=== PATIENT | male | born 1970 | race American Indian/Alaskan Native ===

== ENCOUNTER 2017-03-21 11:25 | Emergency (ER) | payer MEDICAID ==
[2016-08-16 20:01] VITALS: BMI 30.2
[2017-03-21] MEDS ORDERED: Sodium Chloride 0.9% 1,000 ML IV ONE ×4 (12:06→15:12)
[2017-03-21] MEDS ORDERED: (Novolin R) Insulin Human Regular 100 units/ml vial IV ONE ×2 (12:07→14:20)
[2017-03-21 12:16] LABS: BASO % 0.8 % (0.0-2.0); EOS # 0.1 K/uL (0.0-0.7); EOS % 1.1 % (0.0-4.0); HEMATOCRIT 40.5 % (35.0-51.0); LYMPH # 2.1 K/uL (1.0-4.3); LYMPH % 37.6 % (20.0-40.0); MEAN CELL VOLUME 84.5 fL (80.0-94.0); MEAN CORPUSCULAR HEMOGLOBIN 28.7 pg (27.0-31.0); MEAN CORPUSCULAR HGB CONC 33.9 g/dL (33.0-37.0); MEAN PLATELET VOLUME 10.5 fL (7.2-11.7); MONO # 0.3 K/uL (0.0-0.8); NRBC % 0.1 % (0.0-2.0); RED CELL DISTRIBUTION WIDTH 14.2 % (11.5-14.5); WHITE BLOOD COUNT 5.7 K/uL (4.8-10.8)
[2017-03-21 12:23] LABS: CHLORIDE 95 mmol/L (98-107)
[2017-03-21 12:24] LABS: SODIUM 134 mmol/L (132-148)
[2017-03-21 12:27] LABS: ALB/GLOB RATIO 1.4 (1.0-2.1); ALKALINE PHOSPHATASE 98 U/L (38-126); ALT/SGPT 41 U/L (21-72); AST/SGOT 43 U/L (17-59); BILIRUBIN,TOTAL 0.5 mg/dL (0.2-1.3); BLOOD UREA NITROGEN 17 mg/dL (9-20); CALCIUM 9.1 mg/dl (8.6-10.4); CARBON DIOXIDE 24 mmol/L (22-30); GFR AFRICAN-AMERICAN > 60; TOTAL PROTEIN 7.4 g/dL (6.3-8.3)
[2017-03-21 12:37] LABS: GLUCOSE,RANDOM 438 mg/dL (75-110)
[2017-03-21] MEDS ORDERED: Sodium Chloride 0.9% 1,000 ML ONE ×3 (12:42→16:17)
[2017-03-21] MEDS ORDERED: (Novolin R) Insulin Human Regular 100 units/ml vial ONE ×4 (12:42→22:46)
[2017-03-21 12:59] LABS: ALCOHOL SERUM 44 mg/dl (0-10)
--- NOTE | 2017-03-21 13:03 | C.PDOC ---
History Of Present Illness <Kelli Miner - Last Filed: 03/21/17 18:46> <HemaMarck Garima - Last Filed: 03/21/17 20:02> 47 y/o male presents to the ED for psychiatric evaluation. Patient reports feeling depressed and admits to experiencing auditory hallucinations. Patient states he has been having suicidal thoughts but denies ideation at this time. He admits he has not been taking his blood pressure and diabetes medication. He denies homicidal ideation and has no physical complaints at this time. ( CinthiarichyKelli harris) History Per: Patient History/Exam Limitations: no limitations Current Symptoms Are (Timing): Still Present Suicide/Self Injury Attempted (Context): None Modifying Factor(s): None Associated Symptoms: Depression, Suicidal Thoughts. denies: Suicidal Plan Involuntary Hold By: None Recent travel outside of the [place]: No Additional History Per: Patient <Kelli Miner - Last Filed: 03/21/17 18:46> <HemaMarck L - Last Filed: 03/21/17 20:02> Time Seen by Provider: 03/21/17 11:45 Chief Complaint (Nursing): Psychiatric Evaluation Past Medical History Reviewed: Historical Data, Nursing Documentation, Vital Signs - Medical History PMH: Anxiety, COPD, HTN Denies: Chronic Kidney Disease Surgical History: No Surg Hx Family History: States: Unknown Family Hx - Social History Hx Alcohol Use: Yes (Drinks one pint of vodka) Hx Substance Use: Yes (Heroin) <Kelli Miner - Last Filed: 03/21/17 18:46> Review Of Systems Except As Marked, All Systems Reviewed And Found Negative. Psych: Positive for: Depression, Other (+auditory hallucinations ). Negative for: Suicidal ideation <Kelli Miner - Last Filed: 03/21/17 18:46> Physical Exam - Physical Exam Appears: Non-toxic, No Acute Distress, Other (pacing back and forth ) Skin: Normal Color, Warm, Dry Head: Atraumatic, Normacephalic Eye(s): bilateral: Normal Inspection, EOMI Nose: Normal Oral Mucosa: Moist Lips: Other (+dry ) Neck: Normal ROM, Supple Chest: Symmetrical, No Deformity, No Tenderness Cardiovascular: Rhythm Regular, No Murmur Respiratory: Normal Breath Sounds, No Rales, No Rhonchi, No Wheezing Gastrointestinal/Abdominal: Soft, No Tenderness Back: Normal Inspection, No Vertebral Tenderness, No Paraspinal Tenderness Extremity: Normal ROM, Capillary Refill (less than 2 seconds ) Neurological/Psych: Oriented x3, Normal Speech, Normal Cognition Gait: Steady <Kelli Miner - Last Filed: 03/21/17 18:46> ED Course And Treatment - Laboratory Results Result Diagrams: 03/21/17 12:08 03/21/17 12:08 O2 Sat by Pulse Oximetry: 95 (on RA) Pulse Ox Interpretation: Normal Progress Note: labs ordered and reviewed. Pt received Novolin IV and IV Fluids. Patient's vital signs remain stable. Case discussed with Dr. Cid, who agrees that patient does not meet the departmental criteria for code sepsis. Pt has no clinical signs of infection. No cough, congestion, chest pain, abd pain, n/v, or diarrhea. Pt has no complaints. Pt vitals stable. No tachycardia, no fever, WBC WNL. Lactate redrawn - 1.1. Pt clincally stable and medically cleared. Suggested medicine consult for chronic HTN and DM. Pt seen and evalauted by social media project manager. Case endorsed to Dr Garrido, pending disposition. <Kelli Miner - Last Filed: 03/21/17 18:46> - Laboratory Results Result Diagrams: 03/21/17 12:08 03/21/17 12:08 <Marck Garrido - Last Filed: 03/21/17 20:02> Disposition - Disposition Disposition Time: 19:00 <Kelli Miner - Last Filed: 03/21/17 18:46> <Marck Garrido - Last Filed: 03/21/17 20:02> - Disposition Condition: STABLE - Clinical Impression Clinical Impression: Schizophrenia, Depression, Hyperglycemia - PA / HOSE MENDER / Resident Statement MD/DO has reviewed & agrees with the documentation as recorded. - Scribe Statement The provider has reviewed the documentation as recorded by the Scribe (Shameka Subramanian) <Kelli Miner - Last Filed: 03/21/17 18:46> <Marck Garrido - Last Filed: 03/21/17 20:02> - Scribe Statement All medical record entries made by the Scribe were at my direction and personally dictated by me. I have reviewed the chart and agree that the record accurately reflects my personal performance of the history, physical exam, medical decision making, and the department course for this patient. I have also personally directed, reviewed, and agree with the discharge instructions and disposition. (Kelli Miner) Addendum <Kelli Miner - Last Filed: 03/21/17 18:46> <Marck Garrido - Last Filed: 03/21/17 20:02> Addendum: 03/21/17 19:55 Hx and Pe reviewed Pres[facility] awaiting a bed ([facility]) Pt has been and continues to be stable for admission to pes/detox Had one false positive lactate,(repeat normal) no indication of sepsis or DKA Hx of poorly controlled glucose and not taking meds At this time with no evidence of DKA tight control of glucose is NOT indicated. Pt will need a medical consult to restart antidiabetic meds when he is willing 03/21/17 20:01 (Marck Garrido)
[2017-03-21 13:27] LABS: VENOUS BLOOD GAS BASE EXCESS -1.8 mmol/L (0.0-2.0); VENOUS BLOOD GAS PCO2 48 mmHg (40-60); VENOUS BLOOD PH 7.32 (7.32-7.43)
[2017-03-21 14:26] LABS: RBC URINE 3 /hpf (0-3); URINE BACTERIA RARE (<OCC); URINE BILIRUBIN NEGATIVE (NEGATIVE); URINE BLOOD NEGATIVE (NEGATIVE); URINE COLOR Yellow (YELLOW); URINE GLUCOSE (UA) 3+ mg/dL (Normal); URINE KETONE NEGATIVE (NEGATIVE); URINE LEUKOCYTE ESTERASE 1+ Leu/uL (Negative); URINE PROTEIN NEGATIVE (NEGATIVE); URINE UROBILINOGEN NORMAL mg/dL (0.2-1.0); WBC URINE 14 /hpf (0-5)
--- NOTE | 2017-03-21 14:32 | RAD ---
PROCEDURE: CHEST RADIOGRAPH, 1 VIEW HISTORY: screening COMPARISON: None available. FINDINGS: LUNGS: Mild venous congestion. PLEURA: No pneumothorax or pleural fluid seen. CARDIOVASCULAR: Normal. OSSEOUS STRUCTURES: No significant abnormalities. VISUALIZED UPPER ABDOMEN: Normal. OTHER FINDINGS: None. IMPRESSION: Mild venous congestion.
[2017-03-21 15:01] LABS: VENOUS BLOOD GAS BASE EXCESS -1.1 mmol/L (0.0-2.0); VENOUS BLOOD GAS PCO2 48 mmHg (40-60); VENOUS BLOOD PH 7.33 (7.32-7.43)
[2017-03-21] MEDS ORDERED: (Novolin 70/30) NPH/Regular 70/30 Units/ml 10 ml vial SC STA (19:52)
[2017-03-21] MEDS ORDERED: (Novolin 70/30) NPH/Regular 70/30 Units/ml 10 ml vial SC ONE (19:59)
[2017-03-21] MEDS ORDERED: (Novolin R) Insulin Human Regular 100 units/ml vial SC ONE ×2 (21:02→22:46)
[2017-03-22 00:21] VITALS: BP 139/82; PULSE 80; RESP 14; TEMP 97.8; O2SAT 95
== END 2017-03-22 00:28 ==
LOC: C.ER 11:25
DX: F20.9 Schizophrenia, unspecified (principal); E11.65 Type 2 diabetes mellitus with hyperglycemia; F32.9 Major depressive disorder, single episode, unspecified; F41.9 Anxiety disorder, unspecified; I10 Essential (primary) hypertension; Z91.19 Patient's noncompliance with other medical treatment and regimen; F17.210 Nicotine dependence, cigarettes, uncomplicated
CPT/HCPCS: 71010; 80053; 80320; 80324; 80345; 80346; 80349; 80353; 80358; 80361; 81001; 82009; 82803; 82948; 83605; 83992; 85025; 87040; 87086; 96360; 96372; 99285; J7040

== ENCOUNTER 2017-04-11 10:12 | Inpatient (IN) | payer MEDICAID, OTHER ==
[2017-04-11 10:13] VITALS: BMI 30.2
[2017-04-11 10:16] VITALS: O2SAT 98
--- NOTE | 2017-04-11 10:38 | C.PDOC ---
History Of Present Illness Patient is a 47 year old male who presents to the ER agitated, anxious, and with suicidal ideation. Patient had methadone in his possession; has not verbalized any physical complaints at this time. Time Seen by Provider: 04/11/17 10:17 Chief Complaint (Nursing): Psychiatric Evaluation History Per: Patient History/Exam Limitations: no limitations Onset/Duration Of Symptoms: Hrs Current Symptoms Are (Timing): Still Present Suicide/Self Injury Attempted (Context): None Modifying Factor(s): None Associated Symptoms: Anxiety, Agitation, Suicidal Thoughts Involuntary Hold By: None Recent travel outside of the [place]: No Past Medical History Reviewed: Historical Data, Nursing Documentation, Vital Signs Vital Signs: Last Vital Signs Temp 98 F 04/20/17 09:42 Pulse 98 H 04/20/17 09:42 Resp 18 04/20/17 09:42 BP 134/87 04/20/17 09:42 Pulse Ox 98 04/11/17 11:23 - Medical History PMH: Anxiety, Arthritis, Asthma, COPD, Depression, HTN, Schizophrenia Surgical History: No Surg Hx - [facility] Procedures GROUP PSYCHOTHERAPY (04/11/17) INDIV PSYCHOTHERAPY FOR SUBSTANCE ABUSE TREATMENT, SUPPORT (04/11/17) INDIVIDUAL PSYCHOTHERAPY, SUPPORTIVE (04/11/17) MEDICATION MANAGEMENT (04/11/17) MEDS MGMT FOR SUBSTANCE ABUSE TREATMENT, METHADONE MAINT (04/11/17) Family History: States: Unknown Family Hx - Social History Hx Alcohol Use: Yes Hx Substance Use: Yes (last used heroin 2yrs ago) Review Of Systems Constitutional: Negative for: Fever, Chills Psych: Positive for: Anxiety, Suicidal ideation Physical Exam - Physical Exam Appears: Non-toxic, No Acute Distress Skin: Normal Color, Warm, Dry Head: Atraumatic, Normacephalic Oral Mucosa: Moist Chest: Symmetrical, No Tenderness Cardiovascular: Rhythm Regular, No Murmur Respiratory: Normal Breath Sounds, No Rales, No Rhonchi, No Wheezing Gastrointestinal/Abdominal: Soft, No Tenderness Neurological/Psych: Oriented x3, Normal Speech, Normal Cognition ED Course And Treatment - Laboratory Results Result Diagrams: 04/11/17 10:41 04/11/17 10:41 Lab Interpretation: No Acute Changes O2 Sat by Pulse Oximetry: 98 (Room air) Pulse Ox Interpretation: Normal Progress Note: Blood work and urinalysis ordered. Patient will be placed on 1 to 1 observation. Patient agitated. Treated with ativan 2 mg PO Disposition - Disposition Disposition: HOSPITALIZED Disposition Time: 12:00 Condition: GOOD - Clinical Impression Clinical Impression: Moderate major depression, single episode - Scribe Statement The provider has reviewed the documentation as recorded by the Scribtoni Jones All medical record entries made by the Silvaibe were at my direction and personally dictated by me. I have reviewed the chart and agree that the record accurately reflects my personal performance of the history, physical exam, medical decision making, and the department course for this patient. I have also personally directed, reviewed, and agree with the discharge instructions and disposition.
[2017-04-11 10:44] LABS: BASO # 0.1 K/uL (0.0-0.2); BASO % 1.4 % (0.0-2.0); EOS % 0.3 % (0.0-4.0); LYMPH # 1.7 K/uL (1.0-4.3); LYMPH % 22.4 % (20.0-40.0); MEAN CELL VOLUME 84.2 fL (80.0-94.0); MEAN CORPUSCULAR HGB CONC 33.2 g/dL (33.0-37.0); MEAN PLATELET VOLUME 9.8 fL (7.2-11.7); MONO # 0.3 K/uL (0.0-0.8); MONO % 4.1 % (0.0-10.0); NEUT # 5.5 K/uL (1.8-7.0); NEUT % 71.8 % (50.0-75.0); NRBC % 0.1 % (0.0-2.0); RBC 4.99 Mil/uL (4.40-5.90); RED CELL DISTRIBUTION WIDTH 14.6 % (11.5-14.5); WHITE BLOOD COUNT 7.7 K/uL (4.8-10.8)
[2017-04-11 10:53] LABS: ALBUMIN 4.5 g/dL (3.5-5.0)
[2017-04-11 10:56] LABS: ALB/GLOB RATIO 1.2 (1.0-2.1); AST/SGOT 38 U/L (17-59); GFR AFRICAN-AMERICAN > 60; GFR NON-AFRICAN AMERICAN > 60
[2017-04-11 10:57] LABS: ALT/SGPT 46 U/L (21-72); BLOOD UREA NITROGEN 14 mg/dL (9-20); CALCIUM 9.7 mg/dl (8.6-10.4)
[2017-04-11 11:03] LABS: BARBITURATES, UR NEGATIVE (NEGATIVE)
[2017-04-11 11:06] LABS: SQUAMOUS EPITHIAL < 1 /hpf (0-5); URINE BACTERIA OCC (<OCC); URINE BILIRUBIN NEGATIVE (NEGATIVE); URINE BLOOD NEGATIVE (NEGATIVE); URINE CLARITY Clear (Clear); URINE COLOR Yellow (YELLOW); URINE GLUCOSE (UA) 3+ mg/dL (Normal); URINE LEUKOCYTE ESTERASE TRACE Leu/uL (Negative); URINE NITRATE NEGATIVE (NEGATIVE); URINE PROTEIN 1+ mg/dL (NEGATIVE); URINE UROBILINOGEN NORMAL mg/dL (0.2-1.0)
[2017-04-11 11:07] LABS: PHENCYCLIDINE, UR NEGATIVE (NEGATIVE)
[2017-04-11 11:23] LABS: BENZODIAZEPINES, UR POSITIVE (NEGATIVE)
[2017-04-11 11:30] LABS: OPIATES, UR NEGATIVE (NEGATIVE)
--- NOTE | 2017-04-12 10:24 | PCM.PSYCH ---
Initial Psychiatric Evaluation - Initial Psychiatric Evaluation Type of Admission: Voluntary Legal Status: Capacity Chief Complaint (in patient's own words): I was hearing voices History of Present Illness and Precipitating Events: Patient is a 47 years old AAM, who is currently homeless and has a history of schizoaffective disorder, dependence and opiate dependence came to the hospital with depressed mood, auditory hallucinations and suicidal ideation. Patient remained disorganized and internally preoccupied throughout the interview. He appeared delusional and paranoid. Patient reports that he was just discharged from [facility] 2 weeks ago. As per the patient, soon after discharge he stopped taking his medications and relapsed on drinking. Patient states that day before yesterday he consumed more than 2 pints of vodka , started hearing voices , got worried came to the hospital to get help. Patient reports depressed mood, feelings of hopelessness and helplessness poor sleep and poor appetite. He reports auditory hallucinations and persecutory delusions that someone is following him. He also reports visual hallucinations, shadows. He reports withdrawal symptoms from drinking including anxiety, headaches and sweating. He reports history of being on methadone for more than a year. Past psychiatric history HTN, DM Current Medications: Active Medications Generic Name Dose Route Start Last Admin Trade Name Freq PRN Reason Stop Dose Admin Quetiapine Fumarate 50 mg 04/11/17 22:00 04/11/17 21:43 Seroquel PO 50 mg HS MIREYA Administration Trazodone HCl 50 mg 04/11/17 21:19 04/11/17 21:43 Desyrel PO 50 mg HS PRN Administration Insomnia Past Psychiatric History - Past Psychiatric History Previous Treatment History: Inpatient Pertinent Medical Hx (Current Medical&Sleep Prob, Allergies): Allergies Allergy/AdvReac Type Severity Reaction Status Date / Time No Known Allergies Allergy Verified 04/11/17 10:16 Methadone 100 mg PO DAILY 08/14/16 Albuterol/Ipratropium [Duoneb 3 mg/0.5 mg (3 ml) UD] 3 ml IH QID 08/16/16 Atorvastatin [Lipitor] 10 mg PO HS #30 tab 03/30/17 Fluticasone/Salmeterol 250/50 [Advair Diskus 250/50] 1 puff IH Q12 30 Days 03/30 Metformin HCl [Glucophage] 1,000 mg PO BID #60 03/30/17 Nicotine 14 mg/24 hr [Nicoderm CQ] 1 patch TD DAILY #30 patch 03/30/17 Pantoprazole Sodium [Protonix] 40 mg PO DAILY #30 03/30/17 QUEtiapine [SEROquel] 150 mg PO HS #45 tab 03/30/17 QUEtiapine [Seroquel] 100 mg PO DAILY #15 tab 03/30/17 amLODIPine [Norvasc] 10 mg PO DAILY #30 03/30/17 cloNIDine [Catapres] 0.2 mg PO BID #60 03/30/17 Review of Systems - Review of Systems All systems: reviewed and no additional remarkable complaints except - Psychiatric Psychiatric: Anxiety, Irritability, Suicidal Ideation Mental Status Examination - Personal Presentation Personal Presentation: Looks stated age - Affect Affect: Constricted, Depressed - Motor Activity Motor Activity: Calm - Reliability in Providing Information Reliability in Providing Information: Good - Speech Speech: Organized - Mood Mood: Depressed, Anxious - Formal Thought Process Formal Thought Process: Hallucinations - Hallucinations/Delusions Hallucinations: Auditory - Obsessions/Compulsions Obsessions: No Compulsions: No - Cognitive Functions Orientation: Person, Place, Situation, Time Sensorium: Alert Attention/Concentration: Attentive Abstract Thinking: [place] Estimate of Intelligence: Below average Judgement: Imparied, as evidence by: Poor judgement, Imparied, as evidence by: Lack of insight into illness - Risk Risk: Suicidal, Withdrawal, Diminished functioning DSM 5 DX - DSM 5 DSM 5 Diagnosis: Schizoaffective disorder bipolar type Alcohol use disorder severe Alcohol withdrawal Opiate use disorder severe in remission on agonist therapy - Recommended/Plan of Treatment Treatment Recommendations and Plan of Treatment: Schizoaffective disorder bipolar type CBT Psychoeducation Supportive therapy, group therapy, individual therapy Seroquel 50 mg PO QHS Seroquel 100 mg PO Daily Neurontin 100 mg by mouth 3 times a day Trazodone 50 mg by mouth daily at bedtime Alcohol use disorder severe CBT Psychoeducation Supportive therapy, individual therapy Use [place] for abstinence Alcohol withdrawal uncomplicated CBT Psychoeducation Supportive therapy, individual therapy Ativanwhen necessary Folic acid/thiamine/multivitamin Opiate use disorder severe in remission on agonist therapy CBT Psychoeducation Supportive therapy, individual therapy methadone 100 mg by mouth daily Use [place] for abstinence DM Continue prescribed medications Monitor signs and symptoms HTN Continue prescribed medications Monitor signs and symptoms - Smoking Cessation Smoking Cessation Initiated: No
[2017-04-12] MEDS: Pantoprazole 40 mg EC Tab PO SCH (12:44)
[2017-04-12] MEDS: Methadone 40 mg Tab PO SCH (12:45)
[2017-04-12] MEDS: Fluticasone-Salmeterol 250-50mcg Diskus IH SCH ×2 (13:18→21:15)
[2017-04-12] MEDS: Albuterol-Ipratrop 3 mg / 0.5 (3 ml) UD IH SCH ×2 (17:28→21:15)
[2017-04-13] MEDS: Methadone 40 mg Tab PO SCH (10:06)
[2017-04-13] MEDS: Pantoprazole 40 mg EC Tab PO SCH (10:07)
[2017-04-13] MEDS: Fluticasone-Salmeterol 250-50mcg Diskus IH SCH ×2 (10:13→21:38)
[2017-04-13] MEDS: Albuterol-Ipratrop 3 mg / 0.5 (3 ml) UD IH SCH ×3 (13:42→20:35)
--- NOTE | 2017-04-13 14:04 | PCM.PYCHPN ---
Psychiatric Progress Note - Psychiatric Progress Note Patient seen today, length of contact: 16 min Patient Chief Complaint: I was hearing voices Problems Identified/Issues Discussed: Patient seen and evaluated, chart reviewed and discussed with the nurse. As per staff, yesterday patient became more disorganized and internally preoccupied. Patient remained isolated, confined and withdrawn. Today he still reports of hearing voices. Patient still appears paranoid and delusional. He reports depressed mood and feelings of hopelessness and helplessness. He reports withdrawal symptoms including headaches and anxiety. But remained isolated and withdrawn. He is taking medication and denies any side effects. Supportive therapy and psychoeducation were given. Medication Change: Yes (Increase Seroquel) Medical Record Reviewed: Yes Mental Status Examination - Cognitive Function Orientation: Person, Place, Situation, Time Memory: Intact Attention: Poor Concentration: Poor Association: Loose Fund of Knowledge: Poor - Mood Mood: Depressed, Anxious - Affect Affect: Constricted, Depressed - Speech Speech: Soft - Formal Thought Process Formal Thought Process: Hallucinations (auditory), Delusions, Paranoia - Suicidal Ideation Suicidal Ideation: No - Homicidal Ideation Homicidal Ideation: No Goal/Treatment Plan - Goal/Treatment Plan Need for Continued Stay: Remain at risks for inpatient hospitalization, Discharge may exacerbated symptoms Progress Toward Problem(s) and Goals/Treatment Plan: Schizoaffective disorder bipolar type CBT Psychoeducation Supportive therapy, group therapy, individual therapy Seroquel 50 mg PO QHS Seroquel 100 mg PO Daily Neurontin 100 mg by mouth 3 times a day Trazodone 50 mg by mouth daily at bedtime Alcohol use disorder severe CBT Psychoeducation Supportive therapy, individual therapy Use [place] for abstinence Alcohol withdrawal uncomplicated CBT Psychoeducation Supportive therapy, individual therapy Ativan when necessary Folic acid/thiamine/multivitamin Opiate use disorder severe in remission on agonist therapy CBT Psychoeducation Supportive therapy, individual therapy methadone 100 mg by mouth daily Use [place] for abstinence DM Continue prescribed medications Monitor signs and symptoms HTN Continue prescribed medications Monitor signs and symptoms
[2017-04-14] MEDS: Methadone 40 mg Tab PO SCH (09:45)
[2017-04-14] MEDS: Pantoprazole 40 mg EC Tab PO SCH (09:46)
[2017-04-14] MEDS: Albuterol-Ipratrop 3 mg / 0.5 (3 ml) UD IH SCH ×5 (10:06→22:43)
[2017-04-14] MEDS: Fluticasone-Salmeterol 250-50mcg Diskus IH SCH ×2 (10:06→22:18)
--- NOTE | 2017-04-14 12:43 | PCM.PYCHPN ---
Psychiatric Progress Note - Psychiatric Progress Note Patient seen today, length of contact: 16 min Patient Chief Complaint: I was hearing voices Problems Identified/Issues Discussed: Patient seen and evaluated, chart reviewed and discussed with the nurse. Today he still appears paranoid and delusional. He still reports of hearing voices. Patient still appears paranoid and delusional. He reports depressed mood and feelings of hopelessness and helplessness. He is taking medication and denies any side effects. Supportive therapy and psychoeducation were given. Medication Change: Yes (Increase Seroquel) Medical Record Reviewed: Yes Mental Status Examination - Cognitive Function Orientation: Person, Place, Situation, Time Memory: Intact Attention: Poor Concentration: Poor Association: Loose Fund of Knowledge: Poor - Mood Mood: Depressed, Anxious - Affect Affect: Constricted, Depressed - Speech Speech: Soft - Formal Thought Process Formal Thought Process: Hallucinations (auditory), Delusions, Paranoia - Suicidal Ideation Suicidal Ideation: No - Homicidal Ideation Homicidal Ideation: No Goal/Treatment Plan - Goal/Treatment Plan Need for Continued Stay: Remain at risks for inpatient hospitalization, Discharge may exacerbated symptoms Progress Toward Problem(s) and Goals/Treatment Plan: Schizoaffective disorder bipolar type CBT Psychoeducation Supportive therapy, group therapy, individual therapy Seroquel 100 mg PO QHS Seroquel 100 mg PO Daily Neurontin 100 mg by mouth 3 times a day Trazodone 50 mg by mouth daily at bedtime Alcohol use disorder severe CBT Psychoeducation Supportive therapy, individual therapy Use [place] for abstinence Alcohol withdrawal uncomplicated CBT Psychoeducation Supportive therapy, individual therapy Ativan when necessary Folic acid/thiamine/multivitamin Opiate use disorder severe in remission on agonist therapy CBT Psychoeducation Supportive therapy, individual therapy methadone 100 mg by mouth daily Use [place] for abstinence DM Continue prescribed medications Monitor signs and symptoms HTN Continue prescribed medications Monitor signs and symptoms - Smoking Cessation Smoking Cessation Initiated: No
[2017-04-14] MEDS: (Novolog) Insulin Aspart, Recombinant 100 u/ml 10 ml vial SC SCH (22:15)
[2017-04-15] MEDS: (Novolog) Insulin Aspart, Recombinant 100 u/ml 10 ml vial SC SCH ×4 (08:32→21:18)
[2017-04-15] MEDS: Pantoprazole 40 mg EC Tab PO SCH (09:38)
[2017-04-15] MEDS: Methadone 40 mg Tab PO SCH (09:38)
[2017-04-15] MEDS: Fluticasone-Salmeterol 250-50mcg Diskus IH SCH ×2 (13:19→21:25)
[2017-04-15] MEDS: Albuterol-Ipratrop 3 mg / 0.5 (3 ml) UD IH SCH ×3 (13:19→21:18)
--- NOTE | 2017-04-15 13:53 | PCM.PYCHPN ---
Psychiatric Progress Note - Psychiatric Progress Note Patient seen today, length of contact: 16 min Patient Chief Complaint: I am hearing voices and feeling depressed Problems Identified/Issues Discussed: Patient seen and evaluated, chart reviewed and discussed with the nurse. Patient remained isolated, confined and withdrawn. He still reports command type voices that are asking him to harm himself but there is no plan. Patient still appears paranoid and delusional. He reports depressed mood and feelings of hopelessness and helplessness. He reports improvement in the withdrawal symptoms He is taking medication and denies any side effects. Supportive therapy and psychoeducation were given. Medication Change: Yes (start Prolixin) Medical Record Reviewed: Yes Mental Status Examination - Cognitive Function Orientation: Person, Place, Situation, Time Memory: Intact Attention: Poor Concentration: Poor Association: Loose Fund of Knowledge: Poor - Mood Mood: Depressed, Anxious - Affect Affect: Constricted, Depressed - Speech Speech: Soft - Formal Thought Process Formal Thought Process: Hallucinations (auditory), Delusions, Paranoia, Loosening of associations - Suicidal Ideation Suicidal Ideation: No - Homicidal Ideation Homicidal Ideation: No Goal/Treatment Plan - Goal/Treatment Plan Need for Continued Stay: Remain at risks for inpatient hospitalization, Discharge may exacerbated symptoms Progress Toward Problem(s) and Goals/Treatment Plan: Schizoaffective disorder bipolar type CBT Psychoeducation Supportive therapy, group therapy, individual therapy Seroquel 100 mg PO QHS Seroquel 100 mg PO Daily Neurontin 100 mg by mouth 3 times a day Trazodone 50 mg by mouth daily at bedtime Prolixin 5 mg by mouth daily at bedtime Alcohol use disorder severe CBT Psychoeducation Supportive therapy, individual therapy Use [place] for abstinence Alcohol withdrawal uncomplicated CBT Psychoeducation Supportive therapy, individual therapy Ativan when necessary Folic acid/thiamine/multivitamin Opiate use disorder severe in remission on agonist therapy CBT Psychoeducation Supportive therapy, individual therapy methadone 100 mg by mouth daily Use [place] for abstinence DM Continue prescribed medications Monitor signs and symptoms HTN Continue prescribed medications Monitor signs and symptoms - Smoking Cessation Smoking Cessation Initiated: No
[2017-04-16] MEDS: Albuterol-Ipratrop 3 mg / 0.5 (3 ml) UD IH SCH ×2 (08:10→12:27)
[2017-04-16] MEDS: (Novolog) Insulin Aspart, Recombinant 100 u/ml 10 ml vial SC SCH ×5 (08:49→21:26)
[2017-04-16] MEDS: Pantoprazole 40 mg EC Tab PO SCH (10:05)
[2017-04-16] MEDS: Methadone 40 mg Tab PO SCH (10:05)
[2017-04-16] MEDS: Fluticasone-Salmeterol 250-50mcg Diskus IH SCH ×3 (10:11→21:38)
--- NOTE | 2017-04-16 11:47 | PCM.PYCHPN ---
Psychiatric Progress Note - Psychiatric Progress Note Patient seen today, length of contact: 16 min Patient Chief Complaint: I am still hearing voices Problems Identified/Issues Discussed: Patient seen and evaluated, chart reviewed and discussed with the nurse. today patient reports depressed mood and feelings of hopelessness and helplessness. He reports poor sleep and poor appetite. He is still reporting voices there are telling him to kill himself but less in intensity.Patient still appears paranoid and delusional. Pt still appears disheveled and disorganized. He is taking medication and denies any side effects. Supportive therapy and psychoeducation were given. Medication Change: Yes (Increase Prolixin) Medical Record Reviewed: Yes Mental Status Examination - Cognitive Function Orientation: Person, Place, Situation, Time Memory: Intact Attention: Poor Concentration: Poor Association: Loose Fund of Knowledge: Poor - Mood Mood: Depressed, Anxious - Affect Affect: Constricted, Blunted, Depressed - Speech Speech: Soft - Formal Thought Process Formal Thought Process: Hallucinations (auditory), Delusions, Paranoia, Loosening of associations - Suicidal Ideation Suicidal Ideation: No - Homicidal Ideation Homicidal Ideation: No Goal/Treatment Plan - Goal/Treatment Plan Need for Continued Stay: Remain at risks for inpatient hospitalization, Discharge may exacerbated symptoms Progress Toward Problem(s) and Goals/Treatment Plan: Schizoaffective disorder bipolar type CBT Psychoeducation Supportive therapy, group therapy, individual therapy Seroquel 100 mg PO QHS Discontinue Seroquel 100 mg PO Daily Discontinue Neurontin 100 mg by mouth 3 times a day Trazodone 50 mg by mouth daily at bedtime increase Prolixin to 10 mg by mouth daily at bedtime start Zoloft 50 mg by mouth daily Alcohol use disorder severe CBT Psychoeducation Supportive therapy, individual therapy Use [place] for abstinence Alcohol withdrawal uncomplicated CBT Psychoeducation Supportive therapy, individual therapy Ativan when necessary Folic acid/thiamine/multivitamin Opiate use disorder severe in remission on agonist therapy CBT Psychoeducation Supportive therapy, individual therapy methadone 100 mg by mouth daily Use [place] for abstinence DM Continue prescribed medications Monitor signs and symptoms HTN Continue prescribed medications Monitor signs and symptoms Estimated Date of D/C: 04/20/17 - Smoking Cessation Smoking Cessation Initiated: No
--- NOTE | 2017-04-16 13:39 | PCM.PYCHPN ---
Psychiatric Progress Note - Psychiatric Progress Note Patient seen today, length of contact: 16 min Patient Chief Complaint: I am still hearing voices Problems Identified/Issues Discussed: Patient seen and evaluated, chart reviewed and discussed with the nurse. As per staff, yesterday patient became more disorganized and internally preoccupied. Patient remained isolated, confined and withdrawn. Today he reports of voices having calmed down. He states that the voices are asking him to harm himself but there is no plan. Patient still appears paranoid and delusional. He reports depressed mood and feelings of hopelessness and helplessness. Pt appears disheveled, unkempt, and disorganized. He is taking medication and denies any side effects. Supportive therapy and psychoeducation were given. Medication Change: Yes (Increase Seroquel) Medical Record Reviewed: Yes Mental Status Examination - Cognitive Function Orientation: Person, Place, Situation, Time Memory: Intact Attention: Poor Concentration: Poor Association: Loose Fund of Knowledge: Poor - Mood Mood: Depressed, Anxious - Affect Affect: Constricted, Blunted, Depressed - Speech Speech: Soft - Formal Thought Process Formal Thought Process: Hallucinations (auditory), Delusions, Paranoia - Suicidal Ideation Suicidal Ideation: No - Homicidal Ideation Homicidal Ideation: No Goal/Treatment Plan - Goal/Treatment Plan Need for Continued Stay: Remain at risks for inpatient hospitalization, Discharge may exacerbated symptoms Progress Toward Problem(s) and Goals/Treatment Plan: Schizoaffective disorder bipolar type CBT Psychoeducation Supportive therapy, group therapy, individual therapy Seroquel 50 mg PO QHS Seroquel 100 mg PO Daily Neurontin 100 mg by mouth 3 times a day Trazodone 50 mg by mouth daily at bedtime Alcohol use disorder severe CBT Psychoeducation Supportive therapy, individual therapy Use [place] for abstinence Alcohol withdrawal uncomplicated CBT Psychoeducation Supportive therapy, individual therapy Ativan when necessary Folic acid/thiamine/multivitamin Opiate use disorder severe in remission on agonist therapy CBT Psychoeducation Supportive therapy, individual therapy methadone 100 mg by mouth daily Use [place] for abstinence DM Continue prescribed medications Monitor signs and symptoms HTN Continue prescribed medications Monitor signs and symptoms Estimated Date of D/C: 04/20/17
[2017-04-16] MEDS ORDERED: Albuterol-Ipratrop 3 mg / 0.5 (3 ml) UD IH PRN (18:13)
[2017-04-17] MEDS: (Novolog) Insulin Aspart, Recombinant 100 u/ml 10 ml vial SC SCH ×4 (08:33→22:07)
[2017-04-17] MEDS: Pantoprazole 40 mg EC Tab PO SCH (09:55)
[2017-04-17] MEDS: Fluticasone-Salmeterol 250-50mcg Diskus IH SCH ×2 (10:16→22:06)
--- NOTE | 2017-04-17 12:12 | PCM.PYCHPN ---
Psychiatric Progress Note - Psychiatric Progress Note Patient seen today, length of contact: 16 min Patient Chief Complaint: I am feeling little better' Problems Identified/Issues Discussed: Patient seen and evaluated, chart reviewed and discussed with the nurse. As per the staff, pt has started coming out of his room and appears less paranoid and delusional. He still reports of hearing voices. He appears more organize than before. He reports depressed mood and feelings of hopelessness and helplessness. He is taking medication and denies any side effects. Supportive therapy and psychoeducation were given. Medication Change: Yes (Increase Seroquel) Medical Record Reviewed: Yes Mental Status Examination - Cognitive Function Orientation: Person, Place, Situation, Time Memory: Intact Attention: WNL Concentration: Poor Association: Loose Fund of Knowledge: WNL - Mood Mood: Depressed, Anxious - Affect Affect: Constricted, Depressed - Speech Speech: Soft - Formal Thought Process Formal Thought Process: Hallucinations (auditory), Delusions, Paranoia - Suicidal Ideation Suicidal Ideation: No - Homicidal Ideation Homicidal Ideation: No Goal/Treatment Plan - Goal/Treatment Plan Need for Continued Stay: Remain at risks for inpatient hospitalization, Discharge may exacerbated symptoms Progress Toward Problem(s) and Goals/Treatment Plan: Schizoaffective disorder bipolar type CBT Psychoeducation Supportive therapy, group therapy, individual therapy Seroquel 100 mg PO QHS Prolixin 10 mg PO QHS Increase Zoloft to 100 mg po Daily Trazodone 50 mg by mouth daily at bedtime Alcohol use disorder severe CBT Psychoeducation Supportive therapy, individual therapy Use [place] for abstinence Alcohol withdrawal uncomplicated CBT Psychoeducation Supportive therapy, individual therapy Ativan when necessary Folic acid/thiamine/multivitamin Opiate use disorder severe in remission on agonist therapy CBT Psychoeducation Supportive therapy, individual therapy methadone 80 mg by mouth daily Use [place] for abstinence DM Continue prescribed medications Monitor signs and symptoms HTN Continue prescribed medications Monitor signs and symptoms Estimated Date of D/C: 04/20/17 - Smoking Cessation Smoking Cessation Initiated: No
[2017-04-17] MEDS: Methadone 40 mg Tab PO SCH (12:25)
[2017-04-18] MEDS: Fluticasone-Salmeterol 250-50mcg Diskus IH SCH ×2 (11:40→22:02)
[2017-04-18] MEDS: (Novolog) Insulin Aspart, Recombinant 100 u/ml 10 ml vial SC SCH ×4 (11:41→21:32)
[2017-04-18] MEDS: Methadone 40 mg Tab PO SCH (11:44)
[2017-04-18] MEDS: Pantoprazole 40 mg EC Tab PO SCH (11:45)
--- NOTE | 2017-04-18 17:28 | PCM.PYCHPN ---
Psychiatric Progress Note - Psychiatric Progress Note Patient seen today, length of contact: 16 min Patient Chief Complaint: "I feel dizzy" Problems Identified/Issues Discussed: The pt is seen, chart reviewed, case discussed with staff. The pt is compliant with medications and reports no side-effects. Symptoms are improving but needs more time to stabilize. After care discussed, support and psychoeducation given. Medication Change: No Medical Record Reviewed: Yes Mental Status Examination - Cognitive Function Orientation: Person, Place, Situation, Time Memory: Intact Attention: WNL Concentration: Poor Association: Loose Fund of Knowledge: WNL - Mood Mood: Depressed, Anxious - Affect Affect: Constricted, Depressed - Speech Speech: Soft - Formal Thought Process Formal Thought Process: Hallucinations (less) - Suicidal Ideation Suicidal Ideation: No - Homicidal Ideation Homicidal Ideation: No Goal/Treatment Plan - Goal/Treatment Plan Need for Continued Stay: Remain at risks for inpatient hospitalization, Discharge may exacerbated symptoms Progress Toward Problem(s) and Goals/Treatment Plan: Continue medications Support and psychoeducation daily Attend groups and activities daily After care planning by CINDI Estimated Date of D/C: 04/20/17
[2017-04-19 08:02] VITALS: RESP 18
[2017-04-19] MEDS: (Novolog) Insulin Aspart, Recombinant 100 u/ml 10 ml vial SC SCH ×4 (08:25→21:34)
[2017-04-19] MEDS: Methadone 40 mg Tab PO SCH (10:06)
[2017-04-19] MEDS: Pantoprazole 40 mg EC Tab PO SCH (10:08)
[2017-04-19] MEDS: Fluticasone-Salmeterol 250-50mcg Diskus IH SCH ×2 (10:13→21:31)
--- NOTE | 2017-04-19 17:44 | PCM.PYCHPN ---
Psychiatric Progress Note - Psychiatric Progress Note Patient seen today, length of contact: 15 minute Patient Chief Complaint: I'm feeling better. Can I get Ativan prescription at the time of my discharge from the hospital. Problems Identified/Issues Discussed: Patient seen. Chart reviewed. Case discussed with the staff. Issues related to illness and treatment were discussed with the patient. Patient reported compliant with treatment with no adverse affects. Tolerating treatment very well. Patient reported feeling much better. Asking for Ativan prescription at the time of discharge. Education provided about the medications. At the time of evaluation, patient was awake alert oriented 3, delusions, no auditory or visual hallucinations, no suicidal ideations or homicidal ideations. Medical Problems: Hypertension Diabetes mellitus Diagnostic Results: Reviewed DSM 5 Symptoms Update: Improving with treatment Medication Change: No Medical Record Reviewed: Yes Mental Status Examination - Cognitive Function Orientation: Person, Place, Situation, Time Memory: Intact Attention: WNL Concentration: WNL Association: WN Fund of Knowledge: [facility] Decription of patient's judgement and insights: Fair - Mood Mood: Anxious - Affect Affect: Other - Speech Speech: Appropriate - Formal Thought Process Formal Thought Process: No Impairment - Suicidal Ideation Suicidal Ideation: No - Homicidal Ideation Homicidal Ideation: No Goal/Treatment Plan - Goal/Treatment Plan Need for Continued Stay: Remain at risks for inpatient hospitalization, Discharge may exacerbated symptoms, Severe functional impairment Progress Toward Problem(s) and Goals/Treatment Plan: Patient education Supportive therapy Continue treatment as before Estimated Date of D/C: 04/20/17 - Smoking Cessation Smoking Cessation Initiated: Yes
[2017-04-20] MEDS: (Novolog) Insulin Aspart, Recombinant 100 u/ml 10 ml vial SC SCH (08:26)
[2017-04-20 09:43] VITALS: BP 134/87; PULSE 98; TEMP 98
[2017-04-20] MEDS: Pantoprazole 40 mg EC Tab PO SCH (10:02)
[2017-04-20] MEDS: Methadone 40 mg Tab PO SCH (10:04)
--- NOTE | 2017-04-20 16:10 | PCM.PYCHDC ---
Mental Status Examination - Mental Status Examination Orientation: Person, Place, Situation, Time Memory: Intact Mood: Neutral Affect: Constricted Speech: Soft Attention: WNL Concentration: WNL Association: WNL Fund of Knowledge: WNL Formal Thought Process: No Impairment Description of patient's judgement and insight: GOOD, FAIR Psychotic Thoughts and Behaviors: denies any AVH Suicidal Ideation: No Current Homicidal Ideation?: No Discharge Summary - Discharge Note Reason for Hospitalization: Patient is a 47 years old AAM, who is currently homeless and has a history of schizoaffective disorder, dependence and opiate dependence came to the hospital with depressed mood, auditory hallucinations and suicidal ideation. Patient remained disorganized and internally preoccupied throughout the interview. He appeared delusional and paranoid. Patient reports that he was just discharged from [facility] 2 weeks ago. As per the patient, soon after discharge he stopped taking his medications and relapsed on drinking. Patient states that day before yesterday he consumed more than 2 pints of vodka , started hearing voices , got worried came to the hospital to get help. Patient reports depressed mood, feelings of hopelessness and helplessness poor sleep and poor appetite. He reports auditory hallucinations and persecutory delusions that someone is following him. He also reports visual hallucinations, shadows. He reports withdrawal symptoms from drinking including anxiety, headaches and sweating. He reports history of being on methadone for more than a year. Laboratory Data: Abnormal Lab Results 04/19/17 04/20/17 20:08 07:41 POC Glucose (mg/dL) 170 H 240 H Consultations:: List each consultation separately and include: 1. Reason for request. 2. Findings. 3. Follow-up Summary of Hospital Course include:: 1. Description of specific treatment plan utilized for patients during their course of treatmen. 2. Summarize the time- course for resolution of acute symptoms and/or regressed behaviors. 3. Describe issues identified and worked on during hospitalization. 4. Describe medication utilized. 5. Describe medical problems identified and treated. 6. Reassessment of suicide risk Summary of Hospital Course: During the course of her stay, patient (pt) started progressively improving and she no longer remained irritable, anxious and paranoid. Her mood and paranoia were improved and she started attending groups and meetings and started socializing. Patient denied any feelings of hopelessness, helplessness, and worthlessness, denied any problem with the sleep or appetite, denied suicidal ideation or homicidal ideation. Pt denied any auditory or visual hallucinations. Some changes were made in her current medications and patient was discharged on following medications. She tolerated these medications very well and denied any side effects. - Final Diagnosis (DSM 5) Condition upon Discharge: GOOD DSM 5: Schizoaffective disorder bipolar type Alcohol use disorder severe Alcohol withdrawal uncomplicated Opiate use disorder severe in remission on agonist therapy Disposition: HOME/ ROUTINE Follow-up Treatment Plan: Education: Pt was educated and counseled about the risks and benefits of taking and not taking medications. Pt was educated and counseled about the risks of drinking and abusing drugs. Pt was educated and counseled to go to the ER or call 911 if pt develop suicidal ideation or homicidal ideation, worsening of symptoms or severe side effects of the meds. Prescriptions/Medication Reconciliation: Benztropine [Cogentin] 1 mg PO HS PRN #30 tab PRN Reason: Extra Pyramidal Symptoms fluPHENAZine [Prolixin] 10 mg PO HS #30 tab Sertraline [Zoloft] 100 mg PO DAILY #30 tab traZODone [Desyrel] 50 mg PO HS PRN #30 tab PRN Reason: Insomnia - Smoking Cessation Smoking Cessation Medication prescribed: No - Antipsychotic Medications Pt discharged on 2 or more routine antipsychotic medications: No
== END 2017-04-20 11:30 | disposition home or self-care (01) | DRG 430 ==
LOC: C.ER 10:12 → C.5E 13:20 → C.9E 13:20
PROVIDERS: ADMIT Psychiatry & Neurology Psychiatry; ATTEND Psychiatry & Neurology Psychiatry
PROC: GZ3ZZZZ Medication Management (ICD-10-PCS; principal; 2017-04-11)
PROC: GZHZZZZ Group Psychotherapy (ICD-10-PCS; 2017-04-11)
PROC: GZ56ZZZ Individual Psychotherapy, Supportive (ICD-10-PCS; 2017-04-11)
PROC: HZ59ZZZ Individual Psychotherapy for Substance Abuse Treatment, Supportive (ICD-10-PCS; 2017-04-11)
PROC: HZ81ZZZ Medication Management for Substance Abuse Treatment, Methadone Maintenance (ICD-10-PCS; 2017-04-11)
DX: F25.0 Schizoaffective disorder, bipolar type (principal); R45.851 Suicidal ideations; F10.230 Alcohol dependence with withdrawal, uncomplicated; F11.21 Opioid dependence, in remission; J44.9 Chronic obstructive pulmonary disease, unspecified; I10 Essential (primary) hypertension; E11.9 Type 2 diabetes mellitus without complications; F22 Delusional disorders; F41.9 Anxiety disorder, unspecified; Z59.0 Homelessness; Z79.899 Other long term (current) drug therapy

== ENCOUNTER 2017-05-29 16:32 | Inpatient (IN) | payer MEDICAID, OTHER ==
[2017-05-29 16:32] VITALS: BMI 30.2
[2017-05-29 18:18] LABS: BASO % 0.5 % (0.0-2.0); EOS % 0.3 % (0.0-4.0); LYMPH # 1.1 K/uL (1.0-4.3); LYMPH % 14.7 % (20.0-40.0); MEAN CELL VOLUME 83.6 fL (80.0-94.0); MEAN CORPUSCULAR HEMOGLOBIN 28.9 pg (27.0-31.0); MEAN CORPUSCULAR HGB CONC 34.6 g/dL (33.0-37.0); MEAN PLATELET VOLUME 9.3 fL (7.2-11.7); MONO # 0.4 K/uL (0.0-0.8); MONO % 5.8 % (0.0-10.0); RED CELL DISTRIBUTION WIDTH 14.4 % (11.5-14.5); WHITE BLOOD COUNT 7.6 K/uL (4.8-10.8)
[2017-05-29 18:28] LABS: CHLORIDE 93 mmol/L (98-107)
[2017-05-29 18:29] LABS: POTASSIUM 3.3 mmol/L (3.6-5.2); SODIUM 133 mmol/L (132-148)
[2017-05-29 18:31] LABS: ALB/GLOB RATIO 1.2 (1.0-2.1); ALKALINE PHOSPHATASE 126 U/L (38-126); AST/SGOT 26 U/L (17-59); BILIRUBIN,TOTAL 0.6 mg/dL (0.2-1.3); CARBON DIOXIDE 29 mmol/L (22-30); GFR AFRICAN-AMERICAN > 60; TOTAL PROTEIN 7.9 g/dL (6.3-8.3)
[2017-05-29 18:32] LABS: ALCOHOL SERUM < 10 mg/dl (0-10); ALT/SGPT 53 U/L (21-72); BLOOD UREA NITROGEN 14 mg/dL (9-20); CALCIUM 9.9 mg/dl (8.6-10.4); GLUCOSE,RANDOM 242 mg/dL (75-110)
[2017-05-29 19:03] LABS: RBC URINE 2 /hpf (0-3); URINE BACTERIA RARE (<OCC); URINE BILIRUBIN NEGATIVE (NEGATIVE); URINE BLOOD NEGATIVE (NEGATIVE); URINE COLOR Yellow (YELLOW); URINE GLUCOSE (UA) 3+ mg/dL (Normal); URINE KETONE TRACE mg/dL (NEGATIVE); URINE LEUKOCYTE ESTERASE 1+ Leu/uL (Negative); URINE PROTEIN 2+ mg/dL (NEGATIVE); URINE UROBILINOGEN NORMAL mg/dL (0.2-1.0); WBC URINE 6 /hpf (0-5)
--- NOTE | 2017-05-29 19:52 | C.PDOC ---
History Of Present Illness 47 male who presents to the ER with a complaint of hearing voices telling him to kill himself. Denies suicidal or homicidal ideation. Time Seen by Provider: 05/29/17 17:17 Chief Complaint (Nursing): Psychiatric Evaluation History Per: Patient History/Exam Limitations: no limitations Onset/Duration Of Symptoms: Days Current Symptoms Are (Timing): Still Present Suicide/Self Injury Attempted (Context): None Modifying Factor(s): None Associated Symptoms: Suicidal Thoughts. denies: Depression, Suicidal Plan Involuntary Hold By: None Recent travel outside of the [place]: No Past Medical History Reviewed: Historical Data, Nursing Documentation, Vital Signs Vital Signs: Last Vital Signs Temp 99.1 F 05/29/17 16:37 Pulse 98 H 05/29/17 18:06 Resp 20 05/29/17 16:37 BP 169/109 H 05/29/17 18:06 Pulse Ox 98 05/29/17 19:54 - Medical History PMH: Anxiety, Asthma, Cardia Arrhythmia (tachycardia), Depression, Hepatitis, HTN, Hyperlipidemia, Schizophrenia Surgical History: No Surg Hx - [facility] GROUP PSYCHOTHERAPY (04/11/17) INDIV PSYCHOTHERAPY FOR SUBSTANCE ABUSE TREATMENT, SUPPORT (04/11/17) INDIVIDUAL PSYCHOTHERAPY, SUPPORTIVE (04/11/17) MEDICATION MANAGEMENT (04/11/17) MEDS MGMT FOR SUBSTANCE ABUSE TREATMENT, METHADONE MAINT (04/11/17) Family History: States: Unknown Family Hx - Social History Hx Alcohol Use: No Hx Substance Use: No - Immunization History Hx Tetanus Toxoid Vaccination: No Hx Influenza Vaccination: No Hx Pneumococcal Vaccination: No Review Of Systems Constitutional: Negative for: Fever, Chills Gastrointestinal: Negative for: Nausea, Vomiting, Diarrhea Psych: Negative for: Suicidal ideation Physical Exam - Physical Exam Appears: Non-toxic, No Acute Distress Skin: Normal Color, Warm, Dry Head: Atraumatic, Normacephalic Oral Mucosa: Moist Chest: Symmetrical, No Tenderness Cardiovascular: Rhythm Regular, No Murmur Respiratory: Normal Breath Sounds, No Rales, No Rhonchi, No Wheezing Gastrointestinal/Abdominal: Soft, No Tenderness Neurological/Psych: Oriented x3, Normal Speech, Normal Cognition ED Course And Treatment - Laboratory Results Result Diagrams: 05/29/17 18:13 05/29/17 18:13 O2 Sat by Pulse Oximetry: 98 (Room air) Pulse Ox Interpretation: Normal Progress Note: Urine drug screen ordered. Disposition Discussed With Dr.: Marlon Guajardo Doctor Will See Patient In The: Hospital Counseled Patient/Family Regarding: Diagnosis - Disposition Disposition: HOSPITALIZED Disposition Time: 22:20 Condition: STABLE Forms: [facility] ([place]) - Clinical Impression Clinical Impression: Bipolar affective disorder - Scribe Statement The provider has reviewed the documentation as recorded by the Scribe Gilmer Jones All medical record entries made by the Silvaibtoni were at my direction and personally dictated by me. I have reviewed the chart and agree that the record accurately reflects my personal performance of the history, physical exam, medical decision making, and the department course for this patient. I have also personally directed, reviewed, and agree with the discharge instructions and disposition.
[2017-05-30] MEDS ORDERED: Potassium Chloride 20 mEq ER Tab PO STA (00:07)
--- NOTE | 2017-05-30 01:10 | PCM.BM ---
<Jone Luciano - Last Filed: 05/30/17 01:08> Treatment Plan Problems - Problems identified on initial assessmt Depression Date Initiated: 05/30/17 Time Initiated: 01:08 Assessment reference: NA Status: Active Suicidal Ideation Date Initiated: 05/30/17 Time Initiated: 01:09 Assessment reference: NA Status: Active Comment: Jumping infront of truck. Audio Hallucination Date Initiated: 05/30/17 Time Initiated: 01:10 Assessment reference: NA Status: Active Comment: Command hallucination to hurt himself Substance Abuse Date Initiated: 05/30/17 Time Initiated: 01:12 Assessment reference: NA Status: Active Treatment assets and liabiliti Patient Assests: ADL independent, negotiates basic needs Patient Liabilities: live alone, financial problems, poor support system, dietary restrictions, substance abuse, medical problems - Milieu Protocol Maintain good personal hygiene: daily Encourage regular showers, daily Remind patient to perform daily oral care, daily Assist patient to perform ADL's Maintain personal safety: every shift Educate patient to report safety concerns to staff, every shift Monitor environment for contraband/sharps Medication safety: Monitor for expected outcome, potential side effects: every shift, Assess barriers to learning: every shift, Assess readiness for medication education: every shift <Melissa Johansen - Last Filed: 06/03/17 10:58> Family Contact Family involvement: Famliy/SO not involved - Goals for Treatment Patient goals for treatment: "I want to go back to my outpatient program in [facility]." Discharge/Continuing Care - Education Needs Education Needs: Patient Medication, Patient Coping Skills, Patient Placement options, Patient Community resources - Discharge Discharge Criteria: Tolerates medication w/o severe side effects, Free of Suicidal thoughts, No longer exhibiting s/s of withdrawal, Reduction of target symptoms Discharge to:: Long Term - Treatment Team Participation Discussed with Family/SO: No Was Patient/Family/SO present at Treatment Team Meeting: Yes <Vinayak Judd - Last Filed: 06/03/17 11:01> - Diagnosis (1) Schizoaffective disorder Status: Acute Interventions: 06/03/17 10:59 * Assess/adjust medications daily and /or as needed * See patient on an individual basis 7x/week to assess status of hallucinations * Discuss risks, benefits, side effects and alternatives of medications (2) Opioid dependence Status: Acute Interventions: 06/03/17 11:01 * Assess 7x/week regarding severity of withdrawal * Educate regarding risks, benefits, side effects and alternatives of medications * Use Motivational Interviewing for abstinence * Use CBT for relapse prevention * Medication management for withdrawal symptoms * Encourage medication assisted treatment
[2017-05-30] MEDS: Methadone 40 mg Tab PO SCH (12:03)
--- NOTE | 2017-05-30 19:33 | PCM.PSYCH ---
Initial Psychiatric Evaluation - Initial Psychiatric Evaluation Type of Admission: Voluntary Legal Status: Capacity Chief Complaint (in patient's own words): I need help. I was depressed and was hearing voices. History of Present Illness and Precipitating Events: Patient is a 47 years old, single, unemployed, on SSDI, [place] male with history of schizoaffective disorder, alcohol use disorder and opiate use disorder was admitted due to worsening depression and auditory hallucinations secondary to noncompliance with treatment. Patient reported started feeling depressed with decreased sleep and appetite, hopelessness helplessness, with suicidal ideations any plan. Denied any homicidal ideations. Reported history of once previous suicidal attempts 20 years ago by overdose on medication and was admitted in the hospital. Also reported hearing voices, telling him to kill himself, last heard yesterday. Also reported feeling at times that people are after him. He has history of about 10 inpatient psychiatric admissions. Patient did not see any psychiatrist outside. Denied use of any drugs but according to previous record patient was drinking large amount of alcohol and was admitted in [facility] in April because of alcohol use and worsening of his psychiatric symptoms. Patient is also on methadone because of opiate use. Reported he smokes one pack of cigarettes daily requesting for nicotine patch. Patient was born in [place], has had good of education, not working, on SSDI. Lives alone. Never and has no children. His height is 5 feet 2 inches and weight is 160 pounds. Current Medications: Active Medications Generic Name Dose Route Start Last Admin Trade Name Freq PRN Reason Stop Dose Admin Clonidine HCl 0.1 mg 05/30/17 00:56 05/30/17 14:58 Catapres PO 0.1 mg Q6 PRN Administration HTN Fluphenazine HCl 10 mg 05/30/17 22:00 Prolixin PO HS MIREYA Hydroxyzine HCl 25 mg 05/30/17 00:56 05/30/17 13:52 Atarax PO 25 mg Q6 PRN Administration Anxiety Ibuprofen 600 mg 05/30/17 00:56 Motrin Tab PO Q6 PRN Pain, moderate (4-7) Lorazepam 1 mg 05/30/17 00:56 05/30/17 15:52 Ativan PO 1 mg Q6 PRN Administration Agitation Metformin HCl 500 mg 05/30/17 10:00 05/30/17 17:17 Glucophage PO 500 mg BID MIREYA Administration Methadone HCl 80 mg 05/30/17 11:45 05/30/17 12:03 Methadose PO 80 mg DAILY MIREYA Administration Methadone HCl 20 mg 05/30/17 11:45 05/30/17 12:02 Methadone PO 20 mg DAILY MIREYA Administration Nicotine 1 patch 05/31/17 10:00 Nicoderm Cq TD DAILY MIREYA Sertraline HCl 50 mg 05/31/17 10:00 Zoloft PO DAILY MIREYA Trazodone HCl 50 mg 05/30/17 00:56 05/30/17 02:19 Desyrel PO 50 mg HS PRN Administration Sleep Past Psychiatric History - Past Psychiatric History Previous Treatment History: Inpatient At [facility] hospital: [facility] (formerly [facility]) History of Abuse: None reported History of ETOH/Drug Use: See HPI History of Family Illness: None reported Pertinent Medical Hx (Current Medical&Sleep Prob, Allergies): Allergies Allergy/AdvReac Type Severity Reaction Status Date / Time No Known Allergies Allergy Verified 05/29/17 16:42 No Known Home Med 05/29/17 Diabetes mellitus Hypertension Review of Systems - Psychiatric Psychiatric: Depression Mental Status Examination - Personal Presentation Personal Presentation: Looks stated age - Affect Affect: Depressed - Motor Activity Motor Activity: Calm - Reliability in Providing Information Reliability in Providing Information: Fair - Speech Speech: Organized - Mood Mood: Depressed - Formal Thought Process Formal Thought Process: No Impairment - Hallucinations/Delusions Hallucinations: Other (None reported) Delusions: Other - Obsessions/Compulsions Obsessions: None Compulsions: None - Cognitive Functions Orientation: Person, Place, Situation, Time Sensorium: Alert Attention/Concentration: Attentive Abstract Thinking: [place] Estimate of Intelligence: Average Judgement: Intact, as evidence by: Insight regarding need for hospitalization Memory: Recent intact, as evidence by: 3/3 object recall, Remote intact, as evidenced by: Ability to recall historical events - Risk Risk: Diminished functioning - Strength & Assets Inventory Strength & Assets Inventory: Cooperative - Limitations Limitations: Living alone DSM 5 DX - DSM 5 DSM 5 Diagnosis: Schizoaffective disorder depressive type Alcohol use disorder severe Opiate use disorder on agonist therapy(methadone) - Recommended/Plan of Treatment Treatment Recommendations and Plan of Treatment: Patient education Supportive therapy Continue treatment with methadone. Called patient's program to confirm his dose of methadone. Even after calling multiple times no response was received. Patient got his methadone 100 mg according to previous record. Will call his program again on Thursday to confirm methadone dose. Will start Prolixin and Zoloft. Patient was discharged on these medications during his previous admission Other when necessary medications Projected ELOS: 8-10 days - Smoking Cessation Smoking Cessation Initiated: Yes
[2017-05-31] MEDS: Methadone 40 mg Tab PO SCH (09:30)
--- NOTE | 2017-05-31 16:24 | PCM.PYCHPN ---
Psychiatric Progress Note - Psychiatric Progress Note Patient seen today, length of contact: 15 minutes Patient Chief Complaint: I'm feeling better with my medications. Problems Identified/Issues Discussed: Patient seen. Chart reviewed. Case discussed with the staff. Issues related to illness and treatment were discussed with the patient. Reported compliant with treatment with no adverse affects. Tolerating treatment very well. Patient reported feeling much better with this medication. Denied any suicidal homicidal ideations or any auditory visual hallucinations. Patient's potassium was low. Patient is getting potassium chloride. Will repeat potassium. Medical Problems: Diabetes mellitus Hypertension Diagnostic Results: Reviewed DSM 5 Symptoms Update: Improving with treatment Medication Change: No Medical Record Reviewed: Yes Mental Status Examination - Cognitive Function Orientation: Person, Place, Situation, Time Memory: Intact Attention: WNL Concentration: WNL Association: WNL Fund of Knowledge: WN Decription of patient's judgement and insights: Fair - Mood Mood: Depressed (Less than before) - Affect Affect: Depressed - Speech Speech: Appropriate - Formal Thought Process Formal Thought Process: No Impairment - Suicidal Ideation Suicidal Ideation: No - Homicidal Ideation Homicidal Ideation: No Goal/Treatment Plan - Goal/Treatment Plan Need for Continued Stay: Remain at risks for inpatient hospitalization, Discharge may exacerbated symptoms, Severe functional impairment Progress Toward Problem(s) and Goals/Treatment Plan: Patient education Supportive therapy Continue treatment as before Estimated Date of D/C: 06/06/17 - Smoking Cessation Smoking Cessation Initiated: Yes
[2017-06-01] MEDS: Methadone 40 mg Tab PO SCH (09:01)
--- NOTE | 2017-06-01 11:01 | PCM.PYCHPN ---
Psychiatric Progress Note - Psychiatric Progress Note Patient seen today, length of contact: 15 minutes Patient Chief Complaint: "I'm feeling depressed." Problems Identified/Issues Discussed: The pt is seen, chart reviewed, case discussed with staff. The pt reports feeling depressed, anxious, and slightly suicidal. He is observed to be disoriented, and mildly lethargic. The pt reports a decrease in appetite and sleep; he states sleeping 3 hours last night. The pt reports racing thoughts He denies hearing voices or other hallucinations Support given, CBT and [place] used briefly. Pt is improving slowly and needs more time. No SEs from medications, risks discussed. After care discussed. Medication Change: No Medical Record Reviewed: Yes Mental Status Examination - Cognitive Function Orientation: Person, Place, Situation, Time Memory: Intact Attention: WNL Concentration: Poor Association: Loose Fund of Knowledge: WNL - Mood Mood: Depressed (Less than before), Anxious - Affect Affect: Constricted, Depressed - Speech Speech: Appropriate - Formal Thought Process Formal Thought Process: Hallucinations, Delusions, Paranoia, Loosening of associations - Suicidal Ideation Suicidal Ideation: No - Homicidal Ideation Homicidal Ideation: No Goal/Treatment Plan - Goal/Treatment Plan Need for Continued Stay: Remain at risks for inpatient hospitalization, Discharge may exacerbated symptoms, Severe functional impairment Progress Toward Problem(s) and Goals/Treatment Plan: Schizoaffective disorder depressive type CBT Psychoeducation Supportive therapy, group therapy, individual therapy Prolixin 10 by mouth daily at bedtime Neurontin 100 mg by mouth 3 times a day Trazodone 50 mg by mouth daily at bedtime Alcohol use disorder severe CBT Psychoeducation Supportive therapy, individual therapy Use [place] for abstinence Ativan when necessary Opiate use disorder on agonist therapy(methadone) CBT Psychoeducation Supportive therapy, individual therapy Use [place] for abstinence Methadone 100 mg daily Estimated Date of D/C: 06/09/17 - Smoking Cessation Smoking Cessation Initiated: No
[2017-06-02] MEDS: Methadone 40 mg Tab PO SCH (09:26)
--- NOTE | 2017-06-02 15:19 | PCM.PYCHPN ---
Psychiatric Progress Note - Psychiatric Progress Note Patient seen today, length of contact: 16 minutes Patient Chief Complaint: "I feel the same as yesterday." Problems Identified/Issues Discussed: The pt is seen, chart reviewed, case discussed with staff. The pt appears lethargic and slow to respond to questions. The pt reports feeling "calmer" today. The pt reports less auditory and visual hallucinations, but admits they are still present. He still pacing back and forth in the hallways and appeared disorganized. The pt admits to being depressed, and says it's about the same as yesterday. The pt reports some anxiety, and on and off sleep throughout the night. Support given, CBT and [place] used briefly. Pt is improving slowly and needs more time. No SEs from medications, risks discussed. After care discussed. Medication Change: No Medical Record Reviewed: Yes Mental Status Examination - Cognitive Function Orientation: Person, Place, Situation, Time Memory: Intact Attention: WNL Concentration: Poor Association: Loose Fund of Knowledge: WNL - Mood Mood: Depressed (Less than before), Anxious - Affect Affect: Constricted, Depressed - Speech Speech: Appropriate, Soft - Formal Thought Process Formal Thought Process: Hallucinations, Delusions, Paranoia, Loosening of associations - Suicidal Ideation Suicidal Ideation: No - Homicidal Ideation Homicidal Ideation: No Goal/Treatment Plan - Goal/Treatment Plan Need for Continued Stay: Remain at risks for inpatient hospitalization, Discharge may exacerbated symptoms, Severe functional impairment Progress Toward Problem(s) and Goals/Treatment Plan: Schizoaffective disorder depressive type CBT Psychoeducation Supportive therapy, group therapy, individual therapy Prolixin 10 by mouth daily at bedtime Neurontin 100 mg by mouth 3 times a day Trazodone 50 mg by mouth daily at bedtime Alcohol use disorder severe CBT Psychoeducation Supportive therapy, individual therapy Use [place] for abstinence Ativan when necessary Opiate use disorder on agonist therapy(methadone) CBT Psychoeducation Supportive therapy, individual therapy Use [place] for abstinence Methadone 100 mg daily Estimated Date of D/C: 06/06/17
--- NOTE | 2017-06-03 10:58 | PCM.PYCHPN ---
Psychiatric Progress Note - Psychiatric Progress Note Patient seen today, length of contact: 16 minutes Patient Chief Complaint: "I feel the same as yesterday." Problems Identified/Issues Discussed: The pt is seen, chart reviewed, case discussed with staff. The pt appears lethargic and slow to respond to questions. The pt reports feeling "calmer" today. The pt reports less auditory and visual hallucinations, but admits they are still present. The pt denies suicidal or homicidal ideation's. The pt admits to being depressed, and says it's about the same as yesterday. The pt reports some anxiety, and on and off sleep throughout the night. Support given, CBT and [place] used briefly. Pt is improving slowly and needs more time. No SEs from medications, risks discussed. After care discussed. Medication Change: No Medical Record Reviewed: Yes Mental Status Examination - Cognitive Function Orientation: Person, Place, Situation, Time Memory: Intact Attention: WNL Concentration: Poor Association: WNL Fund of Knowledge: Poor - Mood Mood: Depressed (Less than before), Anxious - Affect Affect: Constricted, Depressed - Speech Speech: Appropriate - Formal Thought Process Formal Thought Process: Delusions, Paranoia - Suicidal Ideation Suicidal Ideation: No - Homicidal Ideation Homicidal Ideation: No Goal/Treatment Plan - Goal/Treatment Plan Need for Continued Stay: Remain at risks for inpatient hospitalization, Discharge may exacerbated symptoms, Severe functional impairment Progress Toward Problem(s) and Goals/Treatment Plan: Schizoaffective disorder depressive type CBT Psychoeducation Supportive therapy, group therapy, individual therapy Prolixin 10 by mouth daily at bedtime Neurontin 100 mg by mouth 3 times a day Trazodone 50 mg by mouth daily at bedtime Alcohol use disorder severe CBT Psychoeducation Supportive therapy, individual therapy Use [place] for abstinence Ativan when necessary Opiate use disorder on agonist therapy(methadone) CBT Psychoeducation Supportive therapy, individual therapy Use [place] for abstinence Methadone 100 mg daily Estimated Date of D/C: 06/06/17 - Smoking Cessation Smoking Cessation Initiated: No
[2017-06-03] MEDS: Methadone 40 mg Tab PO SCH (11:14)
[2017-06-04] MEDS: Methadone 40 mg Tab PO SCH (10:00)
--- NOTE | 2017-06-04 12:07 | PCM.PYCHPN ---
Psychiatric Progress Note - Psychiatric Progress Note Patient seen today, length of contact: 15 minutes Patient Chief Complaint: "I feel so so." Problems Identified/Issues Discussed: The pt is seen, chart reviewed, case discussed with staff. The patient reports feeling more depressed today. He is anxious and observed pacing back and forth across the room. Upon questioning, he admits to feeling depression and anxiety over his pending blood work, and is concerned over his Hep C and HIV status. The pt reports less auditory and visual hallucinations. The pt denies suicidal or homicidal ideation's. Otherwise, the patient is sleeping and eating well. Support given, CBT and [place] used briefly. Pt is improving slowly and needs more time. No SEs from medications, risks discussed. After care discussed. Medication Change: No Medical Record Reviewed: Yes Mental Status Examination - Cognitive Function Orientation: Person, Place, Situation, Time Memory: Intact Attention: WNL Concentration: Poor Association: WNL Fund of Knowledge: Poor - Mood Mood: Depressed (Less than before), Anxious - Affect Affect: Constricted, Depressed - Speech Speech: Appropriate - Formal Thought Process Formal Thought Process: Delusions, Paranoia - Suicidal Ideation Suicidal Ideation: No - Homicidal Ideation Homicidal Ideation: No Goal/Treatment Plan - Goal/Treatment Plan Need for Continued Stay: Remain at risks for inpatient hospitalization, Discharge may exacerbated symptoms, Severe functional impairment Progress Toward Problem(s) and Goals/Treatment Plan: Schizoaffective disorder depressive type CBT Psychoeducation Supportive therapy, group therapy, individual therapy Prolixin 10 by mouth daily at bedtime Neurontin 100 mg by mouth 3 times a day Trazodone 50 mg by mouth daily at bedtime Alcohol use disorder severe CBT Psychoeducation Supportive therapy, individual therapy Use [place] for abstinence Ativan when necessary Opiate use disorder on agonist therapy(methadone) CBT Psychoeducation Supportive therapy, individual therapy Use [place] for abstinence Methadone 100 mg daily Estimated Date of D/C: 06/06/17 - Smoking Cessation Smoking Cessation Initiated: No
--- NOTE | 2017-06-05 10:00 | PCM.PYCHPN ---
Psychiatric Progress Note - Psychiatric Progress Note Patient seen today, length of contact: 15 minutes Patient Chief Complaint: "I feel anxious." Problems Identified/Issues Discussed: The pt is seen, chart reviewed, case discussed with staff. The patient remained anxious and irritable. He appeared somewhat internally preoccupied and still pacing back and forth across the room. He still reports depressed mood and at times feelings of hopelessness and helplessness. The pt reports less auditory and visual hallucinations. The pt denies suicidal or homicidal ideation's. Otherwise, the patient is sleeping and eating well. Support given, CBT and [place] used briefly. Pt is improving slowly and needs more time. No SEs from medications, risks discussed. After care discussed. Medication Change: No Medical Record Reviewed: Yes Mental Status Examination - Cognitive Function Orientation: Person, Place, Situation, Time Memory: Intact Attention: WNL Concentration: Poor Association: WNL Fund of Knowledge: Poor - Mood Mood: Depressed (Less than before), Anxious - Affect Affect: Constricted, Depressed - Speech Speech: Appropriate, Soft - Formal Thought Process Formal Thought Process: Hallucinations, Delusions, Paranoia - Suicidal Ideation Suicidal Ideation: No - Homicidal Ideation Homicidal Ideation: No Goal/Treatment Plan - Goal/Treatment Plan Need for Continued Stay: Remain at risks for inpatient hospitalization, Discharge may exacerbated symptoms, Severe functional impairment Progress Toward Problem(s) and Goals/Treatment Plan: Schizoaffective disorder depressive type CBT Psychoeducation Supportive therapy, group therapy, individual therapy Prolixin 10 by mouth daily at bedtime Neurontin 100 mg by mouth 3 times a day Trazodone 50 mg by mouth daily at bedtime Alcohol use disorder severe CBT Psychoeducation Supportive therapy, individual therapy Use [place] for abstinence Ativan when necessary Opiate use disorder on agonist therapy(methadone) CBT Psychoeducation Supportive therapy, individual therapy Use [place] for abstinence Methadone 100 mg daily Estimated Date of D/C: 06/06/17 - Smoking Cessation Smoking Cessation Initiated: No
[2017-06-05] MEDS: Methadone 40 mg Tab PO SCH (10:15)
[2017-06-06] MEDS: Methadone 40 mg Tab PO SCH (09:30)
--- NOTE | 2017-06-06 10:46 | PCM.PYCHPN ---
Psychiatric Progress Note - Psychiatric Progress Note Patient seen today, length of contact: 15 minutes Patient Chief Complaint: "I am feeling anxious." Problems Identified/Issues Discussed: The pt is seen, chart reviewed, case discussed with staff. Patient seen and evaluated, chart reviewed and discussed with the nurse. Pt appeared more organized and less internally preoccupied. But he still reports anxiety and was observed pacing back and forth across the room. He reports improvement in the racing of thoughts, but still reports anxiety and sleep disturbances. He reports some improvement in the voices. He is taking medication and denies any side effects. Support given, CBT and [place] used briefly. Pt is improving slowly and needs more time. No SEs from medications, risks discussed. After care discussed. Medication Change: No Medical Record Reviewed: Yes Mental Status Examination - Cognitive Function Orientation: Person, Place, Situation, Time Memory: Intact Attention: WNL Concentration: Poor Association: WNL Fund of Knowledge: Poor - Mood Mood: Depressed (Less than before) - Affect Affect: Depressed - Speech Speech: Appropriate - Formal Thought Process Formal Thought Process: Hallucinations, Delusions, Paranoia - Suicidal Ideation Suicidal Ideation: No - Homicidal Ideation Homicidal Ideation: No Goal/Treatment Plan - Goal/Treatment Plan Need for Continued Stay: Remain at risks for inpatient hospitalization, Discharge may exacerbated symptoms, Severe functional impairment Progress Toward Problem(s) and Goals/Treatment Plan: Schizoaffective disorder depressive type CBT Psychoeducation Supportive therapy, group therapy, individual therapy Prolixin 10 by mouth daily at bedtime Neurontin 100 mg by mouth 3 times a day Trazodone 50 mg by mouth daily at bedtime Alcohol use disorder severe CBT Psychoeducation Supportive therapy, individual therapy Use [place] for abstinence Ativan when necessary Opiate use disorder on agonist therapy(methadone) CBT Psychoeducation Supportive therapy, individual therapy Use [place] for abstinence Methadone 100 mg daily Estimated Date of D/C: 06/06/17 - Smoking Cessation Smoking Cessation Initiated: No
[2017-06-07] MEDS: Methadone 40 mg Tab PO SCH (10:29)
--- NOTE | 2017-06-07 11:47 | PCM.PYCHPN ---
Psychiatric Progress Note - Psychiatric Progress Note Patient seen today, length of contact: 15 minutes Patient Chief Complaint: "I am feeling very anxious and irritable Problems Identified/Issues Discussed: Patient seen and evaluated, chart reviewed and discussed with the nurse. Patient appeared more organized and less internally preoccupied. Patient reports irritability, anxiety and agitation. He reports racing of thoughts and flight of ideas. He still reports hearing voices. Patient still appears paranoid and delusional. He reports improvement in his depressed mood but remained isolated and withdrawn. He is taking medication and denies any side effects. He needs more time for stabilization Supportive therapy and psychoeducation were given. Medication Change: Yes (Increase Prolixin) Medical Record Reviewed: Yes Mental Status Examination - Cognitive Function Orientation: Person, Place, Situation, Time Memory: Intact Attention: WNL Concentration: Poor Association: Loose Fund of Knowledge: WNL - Mood Mood: Depressed (Less than before), Anxious - Affect Affect: Constricted, Depressed - Speech Speech: Appropriate - Formal Thought Process Formal Thought Process: Hallucinations, Delusions, Paranoia, Loosening of associations, Flight of ideas - Suicidal Ideation Suicidal Ideation: No - Homicidal Ideation Homicidal Ideation: No Goal/Treatment Plan - Goal/Treatment Plan Need for Continued Stay: Remain at risks for inpatient hospitalization, Discharge may exacerbated symptoms, Severe functional impairment Progress Toward Problem(s) and Goals/Treatment Plan: Schizoaffective disorder depressive type CBT Psychoeducation Supportive therapy, group therapy, individual therapy Prolixin 10 by mouth twice a day Trazodone 100 mg by mouth daily at bedtime Depakote 250 mg by mouth daily at bedtime Zoloft 100 mg daily Alcohol use disorder severe CBT Psychoeducation Supportive therapy, individual therapy Use [place] for abstinence [place] Ativan when necessary Opiate use disorder on agonist therapy(methadone) CBT Psychoeducation Supportive therapy, individual therapy Use [place] for abstinence Methadone 100 mg daily Estimated Date of D/C: 06/08/17 - Smoking Cessation Smoking Cessation Initiated: No
[2017-06-07 17:26] VITALS: O2SAT 69
[2017-06-07] MEDS: Divalproex 250 mg DR Tab PO SCH (17:43)
[2017-06-08] MEDS: Divalproex 250 mg DR Tab PO SCH ×2 (09:28→17:30)
[2017-06-08] MEDS: Methadone 40 mg Tab PO SCH (09:28)
--- NOTE | 2017-06-08 16:51 | PCM.PYCHPN ---
Psychiatric Progress Note - Psychiatric Progress Note Patient seen today, length of contact: 15 minutes Patient Chief Complaint: "I am feeling better but still anxious Problems Identified/Issues Discussed: Patient seen and evaluated, chart reviewed and discussed with the nurse. Pt appeared organized and was cooperaitve with interview but reports to feel anxious. He reports that he is feeling better overall and currently denies SI. However, he continues to report sleep disturbances, lack of appetite and racing thoughts. He also continues to hear voices. He has been scheduled for discharge tomorrow (Saturday 06/09) but reports apprehension regarding that. Pt was unwilling to elaborate further. He has been pacing around the hallways all morning. He is taking medication and denies any side effects. Supportive therapy and psychoeducation were given. Medication Change: Yes (Increase Prolixin) Medical Record Reviewed: Yes Mental Status Examination - Cognitive Function Orientation: Person, Place, Situation, Time Memory: Intact Attention: WNL Concentration: Poor Association: Loose Fund of Knowledge: WNL - Mood Mood: Depressed (Less than before), Anxious - Affect Affect: Constricted, Depressed - Speech Speech: Appropriate - Formal Thought Process Formal Thought Process: Hallucinations, Delusions, Flight of ideas - Suicidal Ideation Suicidal Ideation: No - Homicidal Ideation Homicidal Ideation: No Goal/Treatment Plan - Goal/Treatment Plan Need for Continued Stay: Remain at risks for inpatient hospitalization, Discharge may exacerbated symptoms, Severe functional impairment Progress Toward Problem(s) and Goals/Treatment Plan: Schizoaffective disorder depressive type CBT Psychoeducation Supportive therapy, group therapy, individual therapy Prolixin 10 by mouth twice a day Trazodone 100 mg by mouth daily at bedtime Depakote 250 mg by mouth daily at bedtime Zoloft 100 mg daily Alcohol use disorder severe CBT Psychoeducation Supportive therapy, individual therapy Use [place] for abstinence [place] Ativan when necessary Opiate use disorder on agonist therapy(methadone) CBT Psychoeducation Supportive therapy, individual therapy Use [place] for abstinence Methadone 100 mg daily Estimated Date of D/C: 06/08/17 - Smoking Cessation Smoking Cessation Initiated: No
[2017-06-09] MEDS: Methadone 40 mg Tab PO SCH (09:31)
[2017-06-09] MEDS: Divalproex 250 mg DR Tab PO SCH ×2 (09:31→17:21)
[2017-06-10] MEDS: Methadone 40 mg Tab PO SCH (09:30)
--- NOTE | 2017-06-10 09:30 | PCM.BM ---
<JaunJeniferMelissa - Last Filed: 06/10/17 09:30> Treatment Plan Problems - Problems identified on initial assessmt Depression Date Initiated: 05/30/17 Time Initiated: 01:08 Assessment reference: NA Status: Active Suicidal Ideation Date Initiated: 05/30/17 Time Initiated: 01:09 Assessment reference: NA Status: Active Comment: Jumping infront of truck. Audio Hallucination Date Initiated: 05/30/17 Time Initiated: 01:10 Assessment reference: NA Status: Active Comment: Command hallucination to hurt himself Substance Abuse Date Initiated: 05/30/17 Time Initiated: 01:12 Assessment reference: NA Status: Active Treatment assets and liabiliti Patient Assests: ADL independent, negotiates basic needs Patient Liabilities: live alone, financial problems, poor support system, dietary restrictions, substance abuse, medical problems - Milieu Protocol Maintain good personal hygiene: daily Encourage regular showers, daily Remind patient to perform daily oral care, daily Assist patient to perform ADL's Maintain personal safety: every shift Educate patient to report safety concerns to staff, every shift Monitor environment for contraband/sharps Medication safety: Monitor for expected outcome, potential side effects: every shift, Assess barriers to learning: every shift, Assess readiness for medication education: every shift Milieu Narrative: Schizoaffective disorder depressive type CBT Psychoeducation Supportive therapy, group therapy, individual therapy Prolixin 10 by mouth twice a day Trazodone 100 mg by mouth daily at bedtime Depakote 250 mg by mouth daily at bedtime Zoloft 100 mg daily Alcohol use disorder severe CBT Psychoeducation Supportive therapy, individual therapy Use HI for abstinence DC Ativan when necessary Opiate use disorder on agonist therapy(methadone) CBT Psychoeducation Supportive therapy, individual therapy Use HI for abstinence Methadone 100 mg daily Family Contact Family involvement: Famliy/SO not involved - Goals for Treatment Patient goals for treatment: "I want to go back to my outpatient program in [facility]." Discharge/Continuing Care - Education Needs Education Needs: Patient Medication, Patient Coping Skills, Patient Placement options, Patient Community resources - Discharge Discharge Criteria: Tolerates medication w/o severe side effects, Free of Suicidal thoughts, No longer exhibiting s/s of withdrawal, Reduction of target symptoms Discharge to:: Long Term - Treatment Team Participation Patient/Family/SO Statement: Schizoaffective disorder depressive type CBT Psychoeducation Supportive therapy, group therapy, individual therapy Prolixin 10 by mouth twice a day Trazodone 100 mg by mouth daily at bedtime Depakote 250 mg by mouth daily at bedtime Zoloft 100 mg daily Alcohol use disorder severe CBT Psychoeducation Supportive therapy, individual therapy Use HI for abstinence DC Ativan when necessary Opiate use disorder on agonist therapy(methadone) CBT Psychoeducation Supportive therapy, individual therapy Use HI for abstinence Methadone 100 mg daily Discussed with Family/SO: No Was Patient/Family/SO present at Treatment Team Meeting: Yes Treatment Plan Review Patient participation: Yes Family/SO/Caregiver participation: No - Problem Depression Time Initiated: 01:08 Suicidal Ideation Time Initiated: 01:09 Audio Hallucination Time Initiated: 01:10 Substance Abuse Time Initiated: 01:12 <Vinayak Judd - Last Filed: 06/11/17 00:32> - Diagnosis (1) Schizoaffective disorder Status: Acute Interventions: 06/11/17 00:33 * Assess/adjust medications daily and /or as needed * See patient on an individual basis 7x/week to assess status of hallucinations * Discuss risks, benefits, side effects and alternatives of medications * (2) Opioid dependence Status: Acute Interventions: 06/11/17 00:33 * Assess 7x/week regarding severity of withdrawal * Educate regarding risks, benefits, side effects and alternatives of medications * Use Motivational Interviewing for abstinence * Use CBT for relapse prevention * Medication management for withdrawal symptoms * Encourage medication assisted treatment * <Mariann Alvarez - Last Filed: 06/11/17 09:26> Treatment Plan Review - Problem Depression Date Initiated: 06/11/17 Time Initiated: 09:25 Progress toward outcomes: improved Suicidal Ideation Date Initiated: 06/11/17 Time Initiated: 09:25 Progress toward outcomes: resolved Date resolved: 06/11/17 Audio Hallucination Date Initiated: 06/11/17 Time Initiated: 09:25 Progress toward outcomes: resolved Date resolved: 06/11/17 Substance Abuse Date Initiated: 06/11/17 Time Initiated: 09:26 Progress toward outcomes: resolved Date resolved: 06/11/17
[2017-06-10] MEDS: Divalproex 250 mg DR Tab PO SCH ×2 (09:31→17:40)
--- NOTE | 2017-06-10 10:53 | PCM.PYCHPN ---
Psychiatric Progress Note - Psychiatric Progress Note Patient seen today, length of contact: 15 minutes Patient Chief Complaint: "I am feeling better but still anxious Problems Identified/Issues Discussed: Patient seen and evaluated, chart reviewed and discussed with the nurse. Pt appeared more organized and less internally preoccupied. He reports that he is feeling better and denies SI/HI. He reports improvement in the racing of thoughts, but still reports anxiety and sleep disturbances. He reports some improvement in the voices. He has been pacing around the hallways all morning. He is taking medication and denies any side effects. He needs more time for stabilization. Supportive therapy and psychoeducation were given. Medication Change: Yes (Increase Prolixin) Medical Record Reviewed: Yes Mental Status Examination - Cognitive Function Orientation: Person, Place, Situation, Time Memory: Intact Attention: WNL Concentration: Poor Association: Loose Fund of Knowledge: WNL - Mood Mood: Depressed (Less than before), Anxious - Affect Affect: Constricted, Depressed - Speech Speech: Appropriate - Formal Thought Process Formal Thought Process: Hallucinations - Suicidal Ideation Suicidal Ideation: No - Homicidal Ideation Homicidal Ideation: No Goal/Treatment Plan - Goal/Treatment Plan Need for Continued Stay: Remain at risks for inpatient hospitalization, Discharge may exacerbated symptoms, Severe functional impairment Progress Toward Problem(s) and Goals/Treatment Plan: Schizoaffective disorder depressive type CBT Psychoeducation Supportive therapy, group therapy, individual therapy Prolixin 10 by mouth twice a day Trazodone 100 mg by mouth daily at bedtime Depakote 250 mg by mouth daily at bedtime Zoloft 100 mg daily Alcohol use disorder severe CBT Psychoeducation Supportive therapy, individual therapy Use MA for abstinence DC Ativan when necessary Opiate use disorder on agonist therapy(methadone) CBT Psychoeducation Supportive therapy, individual therapy Use MA for abstinence Methadone 100 mg daily Estimated Date of D/C: 06/08/17
[2017-06-10 16:36] VITALS: PULSE 74
--- NOTE | 2017-06-11 00:13 | PCM.PYCHPN ---
Psychiatric Progress Note - Psychiatric Progress Note Patient seen today, length of contact: 15 minutes Patient Chief Complaint: "I am feeling better but still anxious Problems Identified/Issues Discussed: Patient seen and evaluated, chart reviewed and discussed with the nurse. Pt appeared organized and was cooperative with interview but reports to feel anxious. He reports that he is feeling better overall and currently denies SI. However, he continues to report sleep disturbances, lack of appetite and racing thoughts. He also continues to hear voices. He has been pacing around the hallways all morning. He is taking medication and denies any side effects. He needs more time for stabilization. Supportive therapy and psychoeducation were given. Medication Change: Yes (increase depakote) Medical Record Reviewed: Yes Mental Status Examination - Cognitive Function Orientation: Person, Place, Situation, Time Memory: Intact Attention: WNL Concentration: Poor Association: Loose Fund of Knowledge: WNL - Mood Mood: Depressed (Less than before), Anxious - Affect Affect: Constricted, Depressed - Speech Speech: Appropriate - Formal Thought Process Formal Thought Process: Flight of ideas - Suicidal Ideation Suicidal Ideation: No - Homicidal Ideation Homicidal Ideation: No Goal/Treatment Plan - Goal/Treatment Plan Need for Continued Stay: Remain at risks for inpatient hospitalization, Discharge may exacerbated symptoms, Severe functional impairment Progress Toward Problem(s) and Goals/Treatment Plan: Schizoaffective disorder depressive type CBT Psychoeducation Supportive therapy, group therapy, individual therapy Prolixin 10 by mouth twice a day Trazodone 100 mg by mouth daily at bedtime Depakote 500 mg by mouth daily at bedtime Zoloft 100 mg daily Alcohol use disorder severe CBT Psychoeducation Supportive therapy, individual therapy Use [place] for abstinence DC Ativan when necessary Opiate use disorder on agonist therapy(methadone) CBT Psychoeducation Supportive therapy, individual therapy Use WA for abstinence Methadone 100 mg daily Estimated Date of D/C: 06/11/17 - Smoking Cessation Smoking Cessation Initiated: No
[2017-06-11 07:47] VITALS: BP 164/80; RESP 18; TEMP 97.6
--- NOTE | 2017-06-11 09:33 | PCM.PYCHDC ---
Mental Status Examination - Mental Status Examination Orientation: Person, Place, Situation, Time Memory: Intact Mood: Anxious Affect: Constricted Speech: Appropriate Attention: WNL Concentration: WNL Association: WNL Fund of Knowledge: WNL Formal Thought Process: Hallucinations Suicidal Ideation: No Current Homicidal Ideation?: No Discharge Summary - Discharge Note Reason for Hospitalization: Pt presented to ED 05/29/17 with complaint of hearing voices telling him to kill himself Psychiatric History (includes Medical, Family, Personal Hx): 10 inpatient psychiatric admissions in past; suicide attempt 20 years ago Laboratory Data: Abnormal Lab Results 06/11/17 08:06 POC Glucose (mg/dL) 132 H Consultations:: List each consultation separately and include: 1. Reason for request. 2. Findings. 3. Follow-up Summary of Hospital Course include:: 1. Description of specific treatment plan utilized for patients during their course of treatmen. 2. Summarize the time- course for resolution of acute symptoms and/or regressed behaviors. 3. Describe issues identified and worked on during hospitalization. 4. Describe medication utilized. 5. Describe medical problems identified and treated. 6. Reassessment of suicide risk Summary of Hospital Course: Pt was admitted and started on treatment with psychotherapy, support, psychoeducation and medications. PR and CBT used. Pt attended groups and activities, as well as milieu therapy. All the risks and benefits of medications are discussed and pt understood and agreed. Pt improved with the treatments provided. He denies depression, insomnia, SI, HI. He reports to still experience audio hallucinations but requests to be discharged today. After care discussed with pt. Pt reports he will be discharged to [facility]. Pt counseled on signing up for psychiatric follow up while there. - Final Diagnosis (DSM 5) Condition upon Discharge: STABLE DSM 5: Schizoaffective disorder, depressive type Alcohol use disorder, severe Opioid use disorder on agonist therapy (methadone) Disposition: REHAB FACILITY/REHAB UNIT Follow-up Treatment Plan: Continue below medications after discharge. Follow up care plan as discussed. Use relapse prevention skills. Return to ER or call 911 if suicidal, homicidal or symptoms relapse. Stay away from stress, alcohol and drugs. See primary doctor once a year. Prescriptions/Medication Reconciliation: Benztropine [Cogentin] 1 mg PO BID #60 tab Divalproex [Depakote DR] 500 mg PO BID #60 tcp fluPHENAZine [Prolixin] 10 mg PO BID #60 tab metFORMIN [glucOPHAGE] 500 mg PO BID #60 tab Sertraline [Zoloft] 100 mg PO DAILY #30 tab traZODone [Desyrel] 100 mg PO HS PRN #30 tab PRN Reason: Sleep - Smoking Cessation Smoking Cessation Medication prescribed: No - Antipsychotic Medications Pt discharged on 2 or more routine antipsychotic medications: No
[2017-06-11] MEDS ORDERED: Divalproex 250 mg DR Tab PO SCH (10:00)
[2017-06-11] MEDS: Methadone 40 mg Tab PO SCH (10:02)
== END 2017-06-11 10:45 | DRG 430 ==
LOC: C.ER 16:32 → C.5E 22:22
PROC: GZ56ZZZ Individual Psychotherapy, Supportive (ICD-10-PCS; principal; 2017-05-29)
DX: F25.1 Schizoaffective disorder, depressive type (principal); F11.20 Opioid dependence, uncomplicated; R45.851 Suicidal ideations; I10 Essential (primary) hypertension; F17.210 Nicotine dependence, cigarettes, uncomplicated; E78.5 Hyperlipidemia, unspecified; F41.9 Anxiety disorder, unspecified; J45.909 Unspecified asthma, uncomplicated; Z91.19 Patient's noncompliance with other medical treatment and regimen; E11.9 Type 2 diabetes mellitus without complications; F19.10 Other psychoactive substance abuse, uncomplicated

== ENCOUNTER 2017-08-23 20:16 | Inpatient (IN) | payer MEDICAID, OTHER ==
[2017-08-23 20:16] VITALS: BMI 30.2
--- NOTE | 2017-08-23 20:29 | C.PDOC ---
History Of Present Illness Patient presents to the ER with a complaint of feeling depressed and hearing voices.Patient is unsure if he has a plan to kill himself and notes he is noncomplaint with his medications. Denies physical complaints at this time. Time Seen by Provider: 08/23/17 20:29 Chief Complaint (Nursing): Psychiatric Evaluation History Per: Patient History/Exam Limitations: no limitations Onset/Duration Of Symptoms: Hrs Current Symptoms Are (Timing): Still Present Suicide/Self Injury Attempted (Context): None Modifying Factor(s): None Severity: Mild Pain Scale Rating Of: 4 Associated Symptoms: Depression, Suicidal Thoughts, Other (Hearing voices) Involuntary Hold By: None Recent travel outside of the [place]: No Past Medical History Reviewed: Historical Data, Nursing Documentation, Vital Signs Vital Signs: Last Vital Signs Temp 98.0 F 08/23/17 21:48 Pulse 99 H 08/23/17 21:48 Resp 18 08/23/17 21:48 BP 146/95 H 08/23/17 21:48 Pulse Ox 95 08/23/17 21:48 - Medical History PMH: Anxiety, Asthma, Bipolar Disorder, Cardia Arrhythmia (tachycardia), Depression, Diabetes, Hepatitis, HTN, Hyperlipidemia, Schizophrenia Surgical History: No Surg Hx - [facility] GROUP PSYCHOTHERAPY (04/11/17) INDIV PSYCHOTHERAPY FOR SUBSTANCE ABUSE TREATMENT, SUPPORT (04/11/17) INDIVIDUAL PSYCHOTHERAPY, SUPPORTIVE (05/29/17) MEDICATION MANAGEMENT (04/11/17) MEDS MGMT FOR SUBSTANCE ABUSE TREATMENT, METHADONE MAINT (04/11/17) Family History: States: No Known Family Hx - Social History Hx Alcohol Use: Yes Hx Substance Use: No - Immunization History Hx Tetanus Toxoid Vaccination: No Hx Influenza Vaccination: No Hx Pneumococcal Vaccination: No Review Of Systems Constitutional: Negative for: Fever, Chills Gastrointestinal: Negative for: Nausea, Vomiting, Diarrhea Psych: Positive for: Depression, Suicidal ideation, Other (Hearing voices) Physical Exam - Physical Exam Appears: Non-toxic Skin: Warm, Dry Head: Normacephalic Oral Mucosa: Moist Chest: Symmetrical Cardiovascular: Rhythm Regular Respiratory: No Rales, No Rhonchi, No Wheezing Gastrointestinal/Abdominal: Soft, No Tenderness Neurological/Psych: Oriented x3 ED Course And Treatment - Laboratory Results Result Diagrams: 08/23/17 20:52 08/23/17 20:52 O2 Sat by Pulse Oximetry: 100 (Room air) Pulse Ox Interpretation: Normal Progress Note: Blood work and urinalysis ordered. Crisis notified. Disposition Discussed With Dr.: Vniayak Judd Comment: accepted the pt on his service and took over the care at 10:09 PM Doctor Will See Patient In The: Hospital Counseled Patient/Family Regarding: Studies Performed, Diagnosis - Disposition Disposition: HOSPITALIZED Disposition Time: 20:29 Condition: FAIR Forms: [facility] (Guatemalan) - POA Present On Arrival: Poor Glycemic Control - Clinical Impression Clinical Impression: Schizoaffective disorder - Scribe Statement The provider has reviewed the documentation as recorded by the Scribe Gilmer Jones All medical record entries made by the Scribe were at my direction and personally dictated by me. I have reviewed the chart and agree that the record accurately reflects my personal performance of the history, physical exam, medical decision making, and the department course for this patient. I have also personally directed, reviewed, and agree with the discharge instructions and disposition. Decision To Admit - Pt Status Changed To: Hospital Disposition Of: Inpatient - Admit Certification Admit to Inpatient:: After my assessment, the patient will require hospitalization for at least two midnights. This is because of the severity of symptoms shown, intensity of services needed, and/or the medical risk in this patient being treated as an outpatient. - InPatient: Physician Admission Certification: I certify that this patient requires 2 or more midnights of care for the following reason:: After my assessment, the patient will require hospitalization for at least two midnights. This is because of the severity of symptoms shown, intensity of services needed, and/or the medical risk in this patient being treated as an outpatient. - . Bed Request Type: Psychiatry Admitting Physician: Vinayak Judd Patient Diagnosis: Schizoaffective disorder
[2017-08-23 20:56] LABS: BASO % 0.2 % (0.0-2.0); EOS # 0.2 K/uL (0.0-0.7); HEMATOCRIT 36.9 % (35.0-51.0); LYMPH # 2.5 K/uL (1.0-4.3); MEAN CELL VOLUME 84.5 fL (80.0-94.0); MEAN CORPUSCULAR HEMOGLOBIN 28.8 pg (27.0-31.0); MEAN CORPUSCULAR HGB CONC 34.1 g/dL (33.0-37.0); MEAN PLATELET VOLUME 8.5 fL (7.2-11.7); MONO # 0.5 K/uL (0.0-0.8); MONO % 5.8 % (0.0-10.0); NRBC % 0.1 % (0.0-2.0); RED CELL DISTRIBUTION WIDTH 13.5 % (11.5-14.5); WHITE BLOOD COUNT 7.8 K/uL (4.8-10.8)
[2017-08-23 21:04] LABS: POTASSIUM 3.6 mmol/L (3.6-5.2); SODIUM 138 mmol/L (132-148)
[2017-08-23 21:06] LABS: BILIRUBIN,TOTAL 0.2 mg/dL (0.2-1.3); GFR AFRICAN-AMERICAN > 60; RBC URINE < 1 /hpf (0-3); URINE BILIRUBIN NEGATIVE (NEGATIVE); URINE BLOOD NEGATIVE (NEGATIVE); URINE COLOR Straw (YELLOW); URINE GLUCOSE (UA) NORMAL (Normal); URINE KETONE NEGATIVE (NEGATIVE); URINE LEUKOCYTE ESTERASE NEG Leu/uL (Negative); URINE PROTEIN NEGATIVE (NEGATIVE); URINE UROBILINOGEN NORMAL mg/dL (0.2-1.0); WBC URINE < 1 /hpf (0-5)
[2017-08-23 21:07] LABS: ALB/GLOB RATIO 1.2 (1.0-2.1); ALCOHOL SERUM 124 mg/dl (0-10); ALKALINE PHOSPHATASE 75 U/L (38-126); ALT/SGPT 49 U/L (21-72); BLOOD UREA NITROGEN 14 mg/dL (9-20); CALCIUM 8.8 mg/dl (8.6-10.4); GLUCOSE,RANDOM 110 mg/dL (75-110); TOTAL PROTEIN 8.3 g/dL (6.3-8.3)
[2017-08-23 21:14] LABS: CHLORIDE 103 mmol/L (98-107)
[2017-08-23 21:18] LABS: AST/SGOT 23 U/L (17-59); CARBON DIOXIDE 20 mmol/L (22-30)
--- NOTE | 2017-08-24 00:23 | PCM.BM ---
<RaeganHodan grullon - Last Filed: 08/24/17 00:21> Treatment Plan Problems - Problems identified on initial assessmt Depression Date Initiated: 08/23/17 Time Initiated: 23:00 Assessment reference: NA Status: Active Suicidal Ideation Date Initiated: 08/23/17 Time Initiated: 23:00 Assessment reference: NA Status: Active Treatment assets and liabiliti Patient Assests: ADL independent, negotiates basic needs Patient Liabilities: financial problems, poor support system, substance abuse - Milieu Protocol Maintain good personal hygiene: daily Encourage regular showers, daily Remind patient to perform daily oral care, daily Assist patient to perform ADL's Conduct patient checks and document Observation sheet: Q15 minutes Maintain personal safety: every shift Educate patient to report safety concerns to staff, every shift Monitor environment for contraband/sharps Medication safety: Monitor for expected outcome, potential side effects: every shift, Assess barriers to learning: every shift, Assess readiness for medication education: every shift <Melissa Johansen - Last Filed: 08/24/17 10:34> Family Contact Family involvement: Famliy/SO not involved - Goals for Treatment Patient goals for treatment: "I want to get help." Discharge/Continuing Care - Education Needs Education Needs: Patient Medication, Patient Coping Skills - Discharge Discharge Criteria: Tolerates medication w/o severe side effects, Free of Suicidal thoughts, Reduction of target symptoms Discharge to:: Home - Treatment Team Participation Discussed with Family/SO: No Was Patient/Family/SO present at Treatment Team Meeting: Yes <Jaden Dukes - Last Filed: 08/28/17 00:19> - Diagnosis (1) Schizoaffective disorder Status: Acute Interventions: 08/28/17 00:19 * Assess/adjust medications daily and /or as needed * See patient on an individual basis 7x/week to assess symptoms of depression * Monitor for side effects & effectiveness of medications *
[2017-08-24 00:57] VITALS: O2SAT 96
[2017-08-24] MEDS: Methadone 40 mg Tab PO SCH (10:47)
--- NOTE | 2017-08-24 13:40 | PCM.PSYCH ---
Initial Psychiatric Evaluation - Initial Psychiatric Evaluation Type of Admission: Voluntary Legal Status: Capacity Chief Complaint (in patient's own words): "I had suicidal thoughts" History of Present Illness and Precipitating Events: The pt is seen, chart reviewed and case discussed. Patient is a 47 y/o single male who lives alone in a [place] apartment. Patient has no children and is unemployed on disability. Patient presented to ED with suicidal thoughts with plan to jump in front of a train. Patient reports hearing voices that are telling him to hurt himself. Patient reports feeling depressed. Patient has had multiple psychiatric admissions at [facility] the most recent in May. Patient admits he has not been compliant with his medication. After discharge he went back to [facility] , his methadone clinic that he has been going to for 3 years. Patient appears anxious and is pacing. Patient also says he is withdrawing. Patient admits to using heroin on top of methadone 10 bags/day. Patient drinks 1 pint of vodka/day and beer on top of that. Patient admits to xanax use 2 sticks/day. Patient denies barbiturate use even though his urine was positive . Patient denies any other drug use. Patient smokes 1/2 pack of cigarettes/day. Patient wants to return to [facility] in [place]. Past psych hx: Admissions for depression Medical hx: HTN Family psych hx: Denied Current Medications: Active Medications Generic Name Dose Route Start Last Admin Trade Name Freq PRN Reason Stop Dose Admin Amlodipine Besylate 10 mg 08/24/17 10:00 08/24/17 10:47 Norvasc PO 10 mg DAILY MIREYA Administration Metformin HCl 500 mg 08/24/17 10:15 08/24/17 10:47 Glucophage PO 500 mg BIDCC MIREYA Administration Methadone HCl 20 mg 08/24/17 10:15 08/24/17 10:46 Methadone PO 20 mg DAILY MIREYA Administration Methadone HCl 80 mg 08/24/17 10:15 08/24/17 10:47 Methadose PO 80 mg DAILY MIREYA Administration Nicotine 1 patch 08/24/17 13:15 Nicoderm Cq TD DAILY MIREYA Pneumococcal Polyvalent Vaccine 0.5 ml 08/26/17 10:00 Pneumovax 23 Vaccine IM 08/26/17 10:01 .ONCE ONE Trazodone HCl 100 mg 08/24/17 22:00 Desyrel PO HS PRN Sleep Past Psychiatric History - Past Psychiatric History Previous Treatment History: Inpatient At [facility]: [facility] Pertinent Medical Hx (Current Medical&Sleep Prob, Allergies): Allergies Allergy/AdvReac Type Severity Reaction Status Date / Time No Known Allergies Allergy Verified 08/23/17 20:22 Benztropine [Cogentin] 1 mg PO BID #60 tab 06/11/17 Divalproex [Depakote DR] 500 mg PO BID #60 tcp 06/11/17 Sertraline [Zoloft] 100 mg PO DAILY #30 tab 06/11/17 fluPHENAZine [Prolixin] 10 mg PO BID #60 tab 06/11/17 metFORMIN [glucOPHAGE] 500 mg PO BID #60 tab 06/11/17 traZODone [Desyrel] 100 mg PO HS PRN #30 tab 06/11/17 Review of Systems - Psychiatric Psychiatric: As Per HPI, Anxiety, Depression, Hallucinations (auditory ). absent: Homicidal Ideation, Suicidal Ideation Mental Status Examination - Personal Presentation Personal Presentation: Looks stated age - Affect Affect: Constricted - Motor Activity Motor Activity: Calm (but pacing ) - Reliability in Providing Information Reliability in Providing Information: Fair - Speech Speech: Organized - Mood Mood: Depressed, Anxious - Formal Thought Process Formal Thought Process: Hallucinations (auditory ) - Hallucinations/Delusions Hallucinations: Auditory (telling him to hurt himself ) - Obsessions/Compulsions Obsessions: None Compulsions: None - Cognitive Functions Orientation: Person, Place, Situation, Time Sensorium: Alert Abstract Thinking: [place] Estimate of Intelligence: Average Judgement: Intact, as evidence by: Insight regarding need for hospitalization Memory: Recent impaired, as evidence by: Inability to recall events of the day - Risk Risk: Suicidal, Withdrawal - Limitations Limitations: Living alone DSM 5 DX - DSM 5 DSM 5 Diagnosis: major depression, recurrent, severe with psychotic sxs r/o schizoaffective disorder opioid use disorder - severe, on maintenance alcohol use disorder -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 diet, exercise, meditation Smoking cessation 32 min Projected ELOS: 8-10 days Prognosis: good with treatment
--- NOTE | 2017-08-24 16:32 | CP.PCM.CON ---
<Emilia Edward - Last Filed: 08/24/17 16:39> History of Present Illness - History of Present Illness History of Present Illness: Internal Medicine Consult for Hypertension HPI: 47 year old male with PMH of anxiety, depression, Bipolar Disorder, substance abuse and HTN presented to ED (08/23/17) with complaint of feeling depressed and hearing voices. Patient was having suicidal ideations at the time , but had no physical complaints. After admission to Psychiatry, Internal Medicine was consulted for hypertension, which remained elevated even after 0.1 mg of Clonidine was given. Patient was seen and examined (08/24/17), and was stating he was feeling anxious. Patient was still having suicidal ideations, and was also going through withdrawal from heroin although he denied drug use during history. Patient complained of fever, chills, diaphoresis, weakness, blurry vision, dizziness, lightheadedness, palpitations, leg and lower back pain , as well as a recent 10 lb weight gain and decreased appetite. Patient denied headaches, chest pain, SOB, abdominal pain, nausea, vomiting, diarrhea, constipation and recent illness. PMH: Anxiety, Depression, Bipolar Disorder, Schizophrenia, HTN, Tachycardia, Diabetes, Hepatitis, Hyperlipidemia, Asthma PSH: Denies Medications: Benztropine 1 mg BID, Divalproex 250 mg BID, Fluphenazine 10 mg BID , Metformin 500 mg BID, Sertraline 100 mg daily, Trazodone 100 mg PRN Allergies: NKDA Family History: Mother from Emphysema, Father from cancer Social History: Smokes tobacco, 1/2 pack/day for 25 years; heroin 10 bags/day, methadone; drinks 1 pint vodka/day, 10 bottles malt liquor/day, 12 16oz bottles beer/day; lives alone in apartment Review of Systems - Review of Systems All systems: reviewed and no additional remarkable complaints except (as per HPI ) Past Patient History - Infectious Disease Hx of Infectious Diseases: None - Past Medical History & Family History Past Medical History?: Yes - Past Social History Smoking Status: Heavy Smoker > 10 Cigarettes Daily - CARDIAC Hx Cardia Arrhythmia: Yes (tachycardia) Hx Hypertension: Yes - PULMONARY Hx Asthma: Yes - NEUROLOGICAL HX Cerebrovascular Accident: No Hx Seizures: No - HEENT Hx HEENT Problems: Yes Other/Comment: uses corrective glasses - RENAL Hx Chronic Kidney Disease: No - ENDOCRINE/METABOLIC Hx Endocrine Disorders: Yes Hx Diabetes Mellitus Type 2: Yes - HEMATOLOGICAL/ONCOLOGICAL Hx Cancer: No Hx Human Immunodeficiency Virus (HIV): No - INTEGUMENTARY Hx Dermatological Problems: No - MUSCULOSKELETAL/RHEUMATOLOGICAL Hx Arthritis: No - GASTROINTESTINAL Hx Gastrointestinal Disorders: No - GENITOURINARY/GYNECOLOGICAL Hx Sexually Transmitted Disorders: No - PSYCHIATRIC Hx Substance Use: Yes - SURGICAL HISTORY Hx Surgeries: No - ANESTHESIA Hx Anesthesia: No Hx Anesthesia Reactions: No Hx Malignant Hyperthermia: No Meds Allergies/Adverse Reactions: Allergies Allergy/AdvReac Type Severity Reaction Status Date / Time No Known Allergies Allergy Verified 08/23/17 20:22 - Medications Medications: Current Medications Amlodipine Besylate (Norvasc) 10 mg PO DAILY [facility] Last Admin: 08/24/17 10:47 Dose: 10 mg Aripiprazole (Abilify) 5 mg PO [facility] Escitalopram Oxalate (Lexapro) 10 mg PO DAILY [facility] Last Admin: 08/24/17 14:45 Dose: 10 mg Gabapentin (Neurontin) 300 mg PO TID [facility] Last Admin: 08/24/17 14:45 Dose: 300 mg Hydroxyzine HCl (Atarax) 25 mg PO TID PRN PRN Reason: Anxiety Metformin HCl (Glucophage) 500 mg PO BIDCC [facility] Last Admin: 08/24/17 10:47 Dose: 500 mg Methadone HCl (Methadone) 20 mg PO DAILY [facility] Last Admin: 08/24/17 10:46 Dose: 20 mg Methadone HCl (Methadose) 80 mg PO DAILY [facility] Last Admin: 08/24/17 10:47 Dose: 80 mg Nicotine (Nicoderm Cq) 1 patch TD DAILY [facility] Last Admin: 08/24/17 14:45 Dose: 1 patch Pneumococcal Polyvalent Vaccine (Pneumovax 23 Vaccine) 0.5 ml IM .ONCE ONE Stop: 08/26/17 10:01 Trazodone HCl (Desyrel) 100 mg PO HS PRN PRN Reason: Sleep Physical Exam - Constitutional Appears: Non-toxic, No Acute Distress Additional comments: pacing and uneasy - Head Exam Head Exam: ATRAUMATIC, NORMOCEPHALIC - Eye Exam Eye Exam: EOMI, PERRL - ENT Exam ENT Exam: Mucous Membranes Moist - Respiratory Exam Respiratory Exam: Clear to Auscultation Bilateral, NORMAL BREATHING PATTERN. absent: Rales, Rhonchi, Wheezes, Respiratory Distress - Cardiovascular Exam Cardiovascular Exam: REGULAR RHYTHM, RRR, +S1, +S2 - GI/Abdominal Exam GI & Abdominal Exam: Soft. absent: Distended, Guarding, Rigid, Tenderness - Neurological Exam Neurological exam: Normal Gait, Oriented x3 - Psychiatric Exam Psychiatric exam: Anxious, Depressed, Suicidal Ideation - Skin Skin Exam: Dry, Warm Additional comments: dry flaking skin on LEs b/l Results - Vital Signs Recent Vital Signs: Last Vital Signs Temp 97.8 F 08/24/17 07:21 Pulse 83 08/24/17 15:48 Resp 20 08/24/17 08:54 BP 148/95 H 08/24/17 15:48 Pulse Ox 96 08/24/17 08:54 - Labs Result Diagrams: 08/23/17 20:52 08/23/17 20:52 Labs: Laboratory Results - last 24 hr 08/23/17 08/23/17 08/23/17 20:38 20:52 20:52 WBC 7.8 RBC 4.36 L Hgb 12.6 Hct 36.9 MCV 84.5 MCH 28.8 MCHC 34.1 RDW 13.5 Plt Count 233 MPV 8.5 Neut % (Auto) 60.0 Lymph % (Auto) 32.0 [place] % (Auto) 5.8 Eos % (Auto) 2.0 Baso % (Auto) 0.2 Neut # 4.7 Lymph # 2.5 [place] # 0.5 Eos # 0.2 Baso # 0.0 Sodium Potassium Chloride Carbon Dioxide Anion Gap BUN Creatinine Est GFR ( Amer) Est GFR (Non-Af Amer) POC Glucose (mg/dL) 113 H Random Glucose Calcium Total Bilirubin AST ALT Alkaline Phosphatase Total Protein Albumin Globulin Albumin/Globulin Ratio Urine Color Straw Urine Clarity Clear Urine pH 5.0 Ur Specific [place] 1.006 Urine Protein Negative Urine Glucose (UA) Normal Urine Ketones Negative Urine Blood Negative Urine Nitrate Negative Urine Bilirubin Negative Urine Urobilinogen Normal Ur Leukocyte Esterase Neg Urine WBC (Auto) < 1 Urine RBC (Auto) < 1 Urine Opiates Screen Urine Methadone Screen Ur Barbiturates Screen Ur Phencyclidine Scrn Ur Amphetamines Screen U Benzodiazepines Scrn U Oth Cocaine Metabols U Cannabinoids Screen Alcohol, Quantitative 08/23/17 08/23/17 20:52 20:52 WBC RBC Hgb Hct MCV MCH MCHC RDW Plt Count MPV Neut % (Auto) Lymph % (Auto) [place] % (Auto) Eos % (Auto) Baso % (Auto) Neut # Lymph # [place] # Eos # Baso # Sodium 138 Potassium 3.6 Chloride 103 Carbon Dioxide 20 L Anion Gap 19 BUN 14 Creatinine 0.9 Est GFR ( Amer) > 60 Est GFR (Non-Af Amer) > 60 POC Glucose (mg/dL) Random Glucose 110 Calcium 8.8 Total Bilirubin 0.2 AST 23 ALT 49 Alkaline Phosphatase 75 Total Protein 8.3 Albumin 4.4 Globulin 3.8 Albumin/Globulin Ratio 1.2 Urine Color Urine Clarity Urine pH Ur Specific [place] Urine Protein Urine Glucose (UA) Urine Ketones Urine Blood Urine Nitrate Urine Bilirubin Urine Urobilinogen Ur Leukocyte Esterase Urine WBC (Auto) Urine RBC (Auto) Urine Opiates Screen Positive Urine Methadone Screen Positive Ur Barbiturates Screen Positive Ur Phencyclidine Scrn Negative Ur Amphetamines Screen Negative U Benzodiazepines Scrn Positive U Oth Cocaine Metabols Negative U Cannabinoids Screen Negative Alcohol, Quantitative 124 H Assessment & Plan - Assessment and Plan (Free Text) Plan: Uncontrolled HTN * Noncompliant with home meds * Norvasc 10 mg PO QD * Was given one time dose of Clonidine 0.1 mg by psych * HHD * continue to monitor BP and if stable we will sign off * Please reconsult as needed Anxiety, Depression, and suicidal ideation * Continue care per Dr. Judd recsesar Substance Abuse * Continue methadone and nicotine patch per Dr. Judd's recs Diabetes * continue Metformin [address] Leslie Edward <Deven Nelson - Last Filed: 08/24/17 17:06> Meds - Medications Medications: Current Medications Amlodipine Besylate (Norvasc) 10 mg PO DAILY [facility] Last Admin: 08/24/17 10:47 Dose: 10 mg Aripiprazole (Abilify) 5 mg PO HS [facility] Escitalopram Oxalate (Lexapro) 10 mg PO DAILY [facility] Last Admin: 08/24/17 14:45 Dose: 10 mg Gabapentin (Neurontin) 300 mg PO TID [facility] Last Admin: 08/24/17 14:45 Dose: 300 mg Hydroxyzine HCl (Atarax) 25 mg PO TID PRN PRN Reason: Anxiety Last Admin: 08/24/17 16:30 Dose: 25 mg Metformin HCl (Glucophage) 500 mg PO BIDCC [facility] Last Admin: 08/24/17 16:30 Dose: 500 mg Methadone HCl (Methadone) 20 mg PO DAILY [facility] Last Admin: 08/24/17 10:46 Dose: 20 mg Methadone HCl (Methadose) 80 mg PO DAILY [facility] Last Admin: 08/24/17 10:47 Dose: 80 mg Nicotine (Nicoderm Cq) 1 patch TD DAILY [facility] Last Admin: 08/24/17 14:45 Dose: 1 patch Pneumococcal Polyvalent Vaccine (Pneumovax 23 Vaccine) 0.5 ml IM .ONCE ONE Stop: 08/26/17 10:01 Trazodone HCl (Desyrel) 100 mg PO HS PRN PRN Reason: Sleep Results - Vital Signs Recent Vital Signs: Last Vital Signs Temp 97.8 F 08/24/17 07:21 Pulse 83 08/24/17 15:48 Resp 20 08/24/17 08:54 BP 148/95 H 08/24/17 15:48 Pulse Ox 96 08/24/17 08:54 - Labs Result Diagrams: 08/23/17 20:52 08/23/17 20:52 Labs: Laboratory Results - last 24 hr 08/23/17 08/23/17 08/23/17 20:38 20:52 20:52 WBC 7.8 RBC 4.36 L Hgb 12.6 Hct 36.9 MCV 84.5 MCH 28.8 MCHC 34.1 RDW 13.5 Plt Count 233 MPV 8.5 Neut % (Auto) 60.0 Lymph % (Auto) 32.0 [place] % (Auto) 5.8 Eos % (Auto) 2.0 Baso % (Auto) 0.2 Neut # 4.7 Lymph # 2.5 [place] # 0.5 Eos # 0.2 Baso # 0.0 Sodium Potassium Chloride Carbon Dioxide Anion Gap BUN Creatinine Est GFR ( Amer) Est GFR (Non-Af Amer) POC Glucose (mg/dL) 113 H Random Glucose Calcium Total Bilirubin AST ALT Alkaline Phosphatase Total Protein Albumin Globulin Albumin/Globulin Ratio Urine Color Straw Urine Clarity Clear Urine pH 5.0 Ur Specific [place] 1.006 Urine Protein Negative Urine Glucose (UA) Normal Urine Ketones Negative Urine Blood Negative Urine Nitrate Negative Urine Bilirubin Negative Urine Urobilinogen Normal Ur Leukocyte Esterase Neg Urine WBC (Auto) < 1 Urine RBC (Auto) < 1 Urine Opiates Screen Urine Methadone Screen Ur Barbiturates Screen Ur Phencyclidine Scrn Ur Amphetamines Screen U Benzodiazepines Scrn U Oth Cocaine Metabols U Cannabinoids Screen Alcohol, Quantitative 08/23/17 08/23/17 20:52 20:52 WBC RBC Hgb Hct MCV MCH MCHC RDW Plt Count MPV Neut % (Auto) Lymph % (Auto) [place] % (Auto) Eos % (Auto) Baso % (Auto) Neut # Lymph # [place] # Eos # Baso # Sodium 138 Potassium 3.6 Chloride 103 Carbon Dioxide 20 L Anion Gap 19 BUN 14 Creatinine 0.9 Est GFR ( Amer) > 60 Est GFR (Non-Af Amer) > 60 POC Glucose (mg/dL) Random Glucose 110 Calcium 8.8 Total Bilirubin 0.2 AST 23 ALT 49 Alkaline Phosphatase 75 Total Protein 8.3 Albumin 4.4 Globulin 3.8 Albumin/Globulin Ratio 1.2 Urine Color Urine Clarity Urine pH Ur Specific [place] Urine Protein Urine Glucose (UA) Urine Ketones Urine Blood Urine Nitrate Urine Bilirubin Urine Urobilinogen Ur Leukocyte Esterase Urine WBC (Auto) Urine RBC (Auto) Urine Opiates Screen Positive Urine Methadone Screen Positive Ur Barbiturates Screen Positive Ur Phencyclidine Scrn Negative Ur Amphetamines Screen Negative U Benzodiazepines Scrn Positive U Oth Cocaine Metabols Negative U Cannabinoids Screen Negative Alcohol, Quantitative 124 H Attending/Attestation - Attestation I have personally seen and examined this patient.: Yes I have fully participated in the care of the patient.: Yes I have reviewed all pertinent clinical information: Yes Notes (Text): 08/24/17 17:06 Medical attending: Patient was seen and examined by me, agrees the above note by medical librarian. The patient was seen and examined by me over on . He is ambulating on his own in the hallway without any assistance As reported above in the medical librarian note the patient had elevated hypertension and this may be secondary to the patient's withdrawal from the potential polysubstance abuse. Regarding continue monitor the patient. I put in for Norvasc to given once a day were continue to monitor the patient's blood pressure Thank you very much Deven Nelson
--- NOTE | 2017-08-25 09:45 | PCM.PYCHPN ---
Psychiatric Progress Note - Psychiatric Progress Note Patient seen today, length of contact: 16 mins Patient Chief Complaint: "I am not feeling too good" Problems Identified/Issues Discussed: Patient denies voices and suicidal ideations. The pt is seen, chart reviewed, case discussed with staff. Support given, CBT and [place] used briefly Improving slowly and needs more time. No SEs from medications, risks discussed. After care discussed - patient to return to [facility] Medication Change: No Medical Record Reviewed: Yes Mental Status Examination - Cognitive Function Orientation: Person, Place, Situation, Time Attention: WNL Concentration: Poor Association: Loose Fund of Knowledge: Poor - Mood Mood: Depressed, Anxious - Affect Affect: Constricted - Suicidal Ideation Suicidal Ideation: No - Homicidal Ideation Homicidal Ideation: No Goal/Treatment Plan - Goal/Treatment Plan Progress Toward Problem(s) and Goals/Treatment Plan: Continue medications Support and psychoeducation daily Attend groups and activities daily After care planning by CINDI
[2017-08-25] MEDS: Methadone 40 mg Tab PO SCH (10:05)
--- NOTE | 2017-08-25 15:27 | CP.PCM.PN ---
<Emilia Edward - Last Filed: 08/25/17 15:24> Subjective - Date & Time of Evaluation Date of Evaluation: 08/25/17 Time of Evaluation: 07:50 - Subjective Subjective: Patient seen and examined at bedside. Patient pacing in the hallways upon arrival and says he is very anxious. Patient says he has been getting chills and diarrhea. He says he has no appetite. Patient denies fever, chest pain, SOB , headache, dizziness, change in vision, and ringing in ears. Objective - Vital Signs/Intake and Output Vital Signs (last 24 hours): Temp Pulse Resp BP Pulse Ox 97.8 F 86 20 136/80 96 08/25/17 07:55 08/25/17 07:55 08/25/17 07:55 08/25/17 07:55 08/24/17 08:54 - Medications Medications: Current Medications Amlodipine Besylate (Norvasc) 10 mg PO DAILY [facility] Last Admin: 08/25/17 10:06 Dose: 10 mg Aripiprazole (Abilify) 5 mg PO HS [facility] Last Admin: 08/24/17 21:12 Dose: 5 mg Chlordiazepoxide (Librium) 25 mg PO Q6H PRN PRN Reason: alcohol withdrawal Last Admin: 08/25/17 11:01 Dose: 25 mg Escitalopram Oxalate (Lexapro) 10 mg PO DAILY [facility] Last Admin: 08/25/17 10:06 Dose: 10 mg Gabapentin (Neurontin) 300 mg PO TID [facility] Last Admin: 08/25/17 14:17 Dose: 300 mg Hydroxyzine HCl (Atarax) 25 mg PO TID PRN PRN Reason: Anxiety Last Admin: 08/25/17 14:17 Dose: 25 mg Metformin HCl (Glucophage) 500 mg PO BIDCC [facility] Last Admin: 08/25/17 10:06 Dose: 500 mg Methadone HCl (Methadone) 20 mg PO DAILY [facility] Last Admin: 08/25/17 10:05 Dose: 20 mg Methadone HCl (Methadose) 80 mg PO DAILY [facility] Last Admin: 08/25/17 10:05 Dose: 80 mg Nicotine (Nicoderm Cq) 1 patch TD DAILY [facility] Last Admin: 08/25/17 10:05 Dose: 1 patch Pneumococcal Polyvalent Vaccine (Pneumovax 23 Vaccine) 0.5 ml IM .ONCE ONE Stop: 08/26/17 10:01 Trazodone HCl (Desyrel) 100 mg PO HS PRN PRN Reason: Sleep Last Admin: 08/24/17 21:12 Dose: 100 mg - Labs Labs: 08/23/17 20:52 08/23/17 20:52 - Additional Findings Additional findings: - Constitutional Appears: Non-toxic, No Acute Distress Additional comments: pacing and uneasy - Head Exam Head Exam: ATRAUMATIC, NORMOCEPHALIC - Eye Exam Eye Exam: EOMI, PERRL - ENT Exam ENT Exam: Mucous Membranes Moist - Respiratory Exam Respiratory Exam: Clear to Auscultation Bilateral, NORMAL BREATHING PATTERN. absent: Rales, Rhonchi, Wheezes, Respiratory Distress - Cardiovascular Exam Cardiovascular Exam: REGULAR RHYTHM, RRR, +S1, +S2 - GI/Abdominal Exam GI & Abdominal Exam: Soft. absent: Distended, Guarding, Rigid, Tenderness - Neurological Exam Neurological exam: Normal Gait, Oriented x3 - Psychiatric Exam Psychiatric exam: Anxious, Depressed, Suicidal Ideation - Skin Skin Exam: Dry, Warm Additional comments: dry flaking skin on LEs b/l Assessment and Plan - Assessment and Plan (Free Text) Plan: Disposition: Continue to monitor BP. Will sign off. Please reconsult as needed. Uncontrolled HTN * Noncompliant with home meds * Norvasc 10 mg PO QD * Was given one time dose of Clonidine 0.1 mg by psych * HHD * continue to monitor BP * Will sign off; Please reconsult as needed Anxiety, Depression, and suicidal ideation * Continue care per Dr. Judd recs Substance Abuse * Continue methadone and nicotine patch per Dr. Judd's recs Diabetes * continue Metformin [address] Leslie Edward <Deven Nelson - Last Filed: 08/25/17 15:53> Objective - Vital Signs/Intake and Output Vital Signs (last 24 hours): Temp Pulse Resp BP Pulse Ox 97.8 F 86 20 136/80 96 08/25/17 07:55 08/25/17 07:55 08/25/17 07:55 08/25/17 07:55 08/24/17 08:54 - Medications Medications: Current Medications Amlodipine Besylate (Norvasc) 10 mg PO DAILY [facility] Last Admin: 08/25/17 10:06 Dose: 10 mg Aripiprazole (Abilify) 5 mg PO HS [facility] Last Admin: 08/24/17 21:12 Dose: 5 mg Chlordiazepoxide (Librium) 25 mg PO Q6H PRN PRN Reason: alcohol withdrawal Last Admin: 08/25/17 11:01 Dose: 25 mg Escitalopram Oxalate (Lexapro) 10 mg PO DAILY [facility] Last Admin: 08/25/17 10:06 Dose: 10 mg Gabapentin (Neurontin) 300 mg PO TID [facility] Last Admin: 08/25/17 14:17 Dose: 300 mg Hydroxyzine HCl (Atarax) 25 mg PO TID PRN PRN Reason: Anxiety Last Admin: 08/25/17 14:17 Dose: 25 mg Metformin HCl (Glucophage) 500 mg PO BIDCC [facility] Last Admin: 08/25/17 10:06 Dose: 500 mg Methadone HCl (Methadone) 20 mg PO DAILY [facility] Last Admin: 08/25/17 10:05 Dose: 20 mg Methadone HCl (Methadose) 80 mg PO DAILY [facility] Last Admin: 08/25/17 10:05 Dose: 80 mg Nicotine (Nicoderm Cq) 1 patch TD DAILY [facility] Last Admin: 08/25/17 10:05 Dose: 1 patch Pneumococcal Polyvalent Vaccine (Pneumovax 23 Vaccine) 0.5 ml IM .ONCE ONE Stop: 08/26/17 10:01 Trazodone HCl (Desyrel) 100 mg PO HS PRN PRN Reason: Sleep Last Admin: 08/24/17 21:12 Dose: 100 mg - Labs Labs: 08/23/17 20:52 08/23/17 20:52 Attending/Attestation - Attestation I have personally seen and examined this patient.: Yes I have fully participated in the care of the patient.: Yes I have reviewed all pertinent clinical information, including history, physical exam and plan: Yes Notes (Text): 08/25/17 15:52 Medical attending: Patient was seen and examined by me, agrees the above note by medical front desk coordinator. I gave instructions to acquire a basic lab work. If these are stable and the patient's blood pressure remained stable and will sign off the patient. In the meantime he remains on Norvasc for further blood pressure control. As he is being treated for withdrawal he'll have episodes of high blood pressure. When we saw and examined the patient he was actively walking around in the hallway he stated that he did have some upset stomach as well as difficulty sleeping. thank you Deven Nelson
[2017-08-26] MEDS: Methadone 40 mg Tab PO SCH (09:37)
[2017-08-26] MEDS ORDERED: Pneumococcal 23-Valent Vaccine IM ONE (10:00)
[2017-08-26] MEDS ORDERED: Influenza Vaccine 60 mcg/0.5 mL SYR (4YR UP) IM ONE (10:00)
--- NOTE | 2017-08-26 14:39 | PCM.PYCHPN ---
Psychiatric Progress Note - Psychiatric Progress Note Patient seen today, length of contact: 16 mins Patient Chief Complaint: "I heard voices" Problems Identified/Issues Discussed: Patient denies voices and suicidal ideations. The pt is seen, chart reviewed, case discussed with staff. Support given, CBT and [place] used briefly Improving slowly and needs more time. No SEs from medications, risks discussed. After care discussed - patient to return to methadone clinic and [facility] he claimed he heard vocies today after he was told he would be nd'ed on Thursday - likely stress related Medication Change: Yes (increase abilify) Medical Record Reviewed: Yes Mental Status Examination - Cognitive Function Orientation: Person, Place, Situation, Time Attention: WNL Concentration: Poor Association: Loose Fund of Knowledge: Poor - Mood Mood: Depressed (less), Anxious - Affect Affect: Constricted - Formal Thought Process Formal Thought Process: Hallucinations - Suicidal Ideation Suicidal Ideation: No - Homicidal Ideation Homicidal Ideation: No Goal/Treatment Plan - Goal/Treatment Plan Need for Continued Stay: Discharge may exacerbated symptoms, Severe functional impairment Progress Toward Problem(s) and Goals/Treatment Plan: methadone maintenance as it is now confirmed Rao and kyleigh for depression and AH Gabapentni for alcojhol prn meds for possible wdw sxs Attend groups and activities Individual therapy Psychoeducation and support [place] for abstinence Encourage compliance with meds and after care Refer to outpatient program Teach healthy lifestyle methods, i.e. diet, exercise, meditation Smoking cessation
[2017-08-27] MEDS: Methadone 40 mg Tab PO SCH (09:41)
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
[2017-08-27] MEDS: Ammonium Lactate 12% Lotion (225 g) EXT SCH (22:14)
[2017-08-28] MEDS: Vitamins A & D Oint UD Foilpak TOP SCH ×2 (09:42→17:16)
[2017-08-28] MEDS: Methadone 40 mg Tab PO SCH (09:43)
--- NOTE | 2017-08-28 13:16 | PCM.PYCHPN ---
Psychiatric Progress Note - Psychiatric Progress Note Patient seen today, length of contact: 15 min Patient Chief Complaint: "Better" Problems Identified/Issues Discussed: The pt is seen, chart reviewed, case discussed with staff. Support given, CBT and ME used briefly No new symptoms reported, improving slowly and needs more time No SEs from medications, risks discussed. After care discussed - Will return to [facility] at [facility] and [facility] on No voices today, calmer Medication Change: No Medical Record Reviewed: Yes Mental Status Examination - Cognitive Function Orientation: Person, Place, Situation, Time Memory: Intact Attention: WNL Concentration: Poor Association: Loose Fund of Knowledge: Poor - Mood Mood: Depressed (less), Anxious - Affect Affect: Constricted - Speech Speech: Appropriate - Formal Thought Process Formal Thought Process: No Impairment - Suicidal Ideation Suicidal Ideation: No - Homicidal Ideation Homicidal Ideation: No Goal/Treatment Plan - Goal/Treatment Plan Need for Continued Stay: Discharge may exacerbated symptoms, Severe functional impairment Progress Toward Problem(s) and Goals/Treatment Plan: methadone maintenance Lexapro and abilify for depression and AH Gabapentni for alcojhol prn meds for possible wdw sxs Attend groups and activities Individual therapy Psychoeducation and support ME for abstinence Encourage compliance with meds and after care Refer to outpatient program Teach healthy lifestyle methods, i.e. diet, exercise, meditation Smoking cessation Estimated Date of D/C: 08/30/17
[2017-08-29 07:23] VITALS: RESP 19
[2017-08-29] MEDS: Vitamins A & D Oint UD Foilpak TOP SCH ×2 (12:36→17:14)
[2017-08-29] MEDS: Methadone 40 mg Tab PO SCH (12:38)
--- NOTE | 2017-08-29 20:44 | PCM.PYCHPN ---
Psychiatric Progress Note - Psychiatric Progress Note Patient seen today, length of contact: 16 mins Patient Chief Complaint: I'm feeling better Problems Identified/Issues Discussed: Patient was seen and evaluated, chart reviewed and nurse input received. He has had no issue last night. Case was discussed with the nurse. Pt reports improvement in is mood and improvement in the feelings of hopelessness and helplessness. He is still isolated to himself. He is taking medication and denies any side effects. He needs more time for stabilization DSM 5 Symptoms Update: major depression, recurrent, severe with psychotic sxs r/o schizoaffective disorder opioid use disorder - severe, on maintenance alcohol use disorder -severe sedative hypnotic use disorder - severe tobacco use disorder - moderate Medication Change: Yes (increase abilify) Medical Record Reviewed: Yes Mental Status Examination - Cognitive Function Orientation: Person, Place, Situation, Time Memory: Intact Attention: WNL Concentration: Poor Association: Loose Fund of Knowledge: Poor Decription of patient's judgement and insights: fair/fair - Mood Mood: Depressed (less), Anxious - Affect Affect: Constricted - Speech Speech: Appropriate, Soft - Formal Thought Process Formal Thought Process: Hallucinations - Suicidal Ideation Suicidal Ideation: No - Homicidal Ideation Homicidal Ideation: No Goal/Treatment Plan - Goal/Treatment Plan Need for Continued Stay: Discharge may exacerbated symptoms, Severe functional impairment Progress Toward Problem(s) and Goals/Treatment Plan: Continue treatment as per primary team prn meds for possible wdw sxs Attend groups and activities Individual therapy Psychoeducation and support PA for abstinence Encourage compliance with meds and after care Refer to outpatient program Teach healthy lifestyle methods, i.e. diet, exercise, meditation Smoking cessation Estimated Date of D/C: 08/30/17 - Smoking Cessation Smoking Cessation Initiated: Yes
[2017-08-30 07:00] VITALS: PULSE 82; TEMP 97.9
[2017-08-30] MEDS: Vitamins A & D Oint UD Foilpak TOP SCH ×2 (12:39→17:08)
[2017-08-30] MEDS: Methadone 40 mg Tab PO SCH (12:46)
[2017-08-30 16:49] VITALS: BP 122/76
--- NOTE | 2017-08-30 19:17 | PCM.PYCHPN ---
Psychiatric Progress Note - Psychiatric Progress Note Patient seen today, length of contact: 15 min Patient Chief Complaint: "I'm feeling better" Problems Identified/Issues Discussed: Patient was seen and evaluated, chart reviewed and nurse input received. He has had no issue last night. Case was discussed with the nurse. Pt reports improvement in is mood and improvement in the feelings of hopelessness and helplessness. He is still isolated to himself, not attending groups. He is taking medication and denies any side effects. He needs more time for stabilization DSM 5 Symptoms Update: MDD, RECURRENT, SEVERE, W PSYCHOTIC FX, OPIOID USE D/O SEVERE, ETOH USE D/O HYPNOTIC, SEDATIVE, OR ANXIOLYTIC USE D/O Medication Change: No Medical Record Reviewed: Yes Mental Status Examination - Cognitive Function Orientation: Person, Place, Situation, Time Memory: Intact Attention: WNL Concentration: Poor Association: Loose Fund of Knowledge: Poor - Mood Mood: Depressed (less), Anxious - Affect Affect: Constricted - Speech Speech: Appropriate - Formal Thought Process Formal Thought Process: No Impairment Psychotic Thoughts and Behaviors: DENIED - Suicidal Ideation Suicidal Ideation: No - Homicidal Ideation Homicidal Ideation: No Goal/Treatment Plan - Goal/Treatment Plan Need for Continued Stay: Discharge may exacerbated symptoms, Severe functional impairment Progress Toward Problem(s) and Goals/Treatment Plan: Continue treatment as per primary team prn meds for possible wdw sxs Attend groups and activities Individual therapy Psychoeducation and support NC for abstinence Encourage compliance with meds and after care Refer to outpatient program Teach healthy lifestyle methods, i.e. diet, exercise, meditation Smoking cessation Estimated Date of D/C: 08/30/17
[2017-08-31] MEDS: Methadone 40 mg Tab PO SCH (10:17)
[2017-08-31] MEDS: Vitamins A & D Oint UD Foilpak TOP SCH (10:26)
--- NOTE | 2017-08-31 10:57 | PCM.PYCHDC ---
Mental Status Examination - Mental Status Examination Orientation: Person Discharge Summary - Discharge Note Laboratory Data: Abnormal Lab Results 08/30/17 08/31/17 16:38 07:34 POC Glucose (mg/dL) 96 105 Consultations:: List each consultation separately and include: 1. Reason for request. 2. Findings. 3. Follow-up Summary of Hospital Course include:: 1. Description of specific treatment plan utilized for patients during their course of treatmen. 2. Summarize the time- course for resolution of acute symptoms and/or regressed behaviors. 3. Describe issues identified and worked on during hospitalization. 4. Describe medication utilized. 5. Describe medical problems identified and treated. 6. Reassessment of suicide risk Summary of Hospital Course: The pt is seen, chart reviewed and case discussed. Patient is a 47 y/o single male who lives alone in a [place] apartment. Patient has no children and is unemployed on disability. Patient presented to ED with suicidal thoughts with plan to jump in front of a train. Patient reports hearing voices that are telling him to hurt himself. Patient reports feeling depressed. Patient has had multiple psychiatric admissions at [facility] the most recent in May. Patient admits he has not been compliant with his medication. After discharge he went back to [facility] , his methadone clinic that he has been going to for 3 years. Patient appears anxious and is pacing. Patient also says he is withdrawing. Patient admits to using heroin on top of methadone 10 bags/day. Patient drinks 1 pint of vodka/day and beer on top of that. Patient admits to xanax use 2 sticks/day. Patient denies barbiturate use even though his urine was positive . Patient denies any other drug use. Patient smokes 1/2 pack of cigarettes/day. Patient wants to return to [facility] in [place]. Past psych hx: Admissions for depression Medical hx: HTN Family psych hx: Denied - Diagnosis (1) Schizoaffective disorder Current Visit: Yes Status: Acute - Final Diagnosis (DSM 5) Condition upon Discharge: FAIR Disposition: HOME/ ROUTINE Follow-up Treatment Plan: methadone maintenance Lexapro and abilify for depression and AH Gabapentni for alcojhol prn meds for possible wdw sxs Attend groups and activities Individual therapy Psychoeducation and support GA for abstinence Encourage compliance with meds and after care Refer to outpatient program Teach healthy lifestyle methods, i.e. diet, exercise, meditation Smoking cessation Prescriptions/Medication Reconciliation: amLODIPine [Norvasc] 10 mg PO DAILY #30 tab ARIPiprazole [Abilify] 10 mg PO HS #30 tab Escitalopram [Lexapro] 20 mg PO DAILY #30 tab Gabapentin [Neurontin] 300 mg PO TID #90 cap
== END 2017-08-31 13:40 | disposition home or self-care (01) | DRG 430 ==
LOC: C.ER 20:16 → C.9E 22:09 → C.5E 22:47
PROVIDERS: ADMIT Psychiatry & Neurology Psychiatry; ATTEND Psychiatry & Neurology Psychiatry
PROC: GZ56ZZZ Individual Psychotherapy, Supportive (ICD-10-PCS; principal; 2017-08-23)
PROC: GZHZZZZ Group Psychotherapy (ICD-10-PCS; 2017-08-23)
DX: F33.2 Major depressive disorder, recurrent severe without psychotic features (principal); Z91.14 Patient's other noncompliance with medication regimen; I10 Essential (primary) hypertension; F11.90 Opioid use, unspecified, uncomplicated; F13.10 Sedative, hypnotic or anxiolytic abuse, uncomplicated; E78.5 Hyperlipidemia, unspecified; F17.210 Nicotine dependence, cigarettes, uncomplicated; F10.120 Alcohol abuse with intoxication, uncomplicated; Y90.6 Blood alcohol level of 120-199 mg/100 ml; F19.10 Other psychoactive substance abuse, uncomplicated

== ENCOUNTER 2017-11-07 09:09 | Inpatient (IN) | payer MEDICAID, OTHER ==
[2017-11-07 09:09] VITALS: BMI 30.2
--- NOTE | 2017-11-07 10:23 | C.PDOC ---
History Of Present Illness 47 year old male, with PMHx of Anxiety, Bipolar Disorder, Depression, HTN, Schizophrenia, presents to ED for evaluation of suicidal ideation with plans to jump in front of a train, and to jump off of a bridge since this morning. Pt reports hearing voices telling him to hurt himself. Denies any active physical complaints at this time. Time Seen by Provider: 11/07/17 09:27 Chief Complaint (Nursing): Psychiatric Evaluation History Per: Patient History/Exam Limitations: no limitations Onset/Duration Of Symptoms: Days, Gradual Current Symptoms Are (Timing): Still Present Modifying Factor(s): None Severity: None Pain Scale Rating Of: 0 Associated Symptoms: Suicidal Thoughts, Suicidal Plan Involuntary Hold By: None Recent travel outside of the [place]: No Additional History Per: Patient Past Medical History Reviewed: Historical Data, Nursing Documentation, Vital Signs Vital Signs: Last Vital Signs Temp 99 F 11/07/17 09:13 Pulse 81 11/07/17 09:13 Resp 18 11/07/17 09:13 BP 159/105 H 11/07/17 09:13 Pulse Ox 99 11/07/17 13:08 - Medical History PMH: Anxiety, Asthma, Bipolar Disorder, Cardia Arrhythmia (tachycardia), Depression, HTN, Hyperlipidemia, Schizophrenia Denies: Arthritis, COPD, Diabetes, Hepatitis, HIV, Chronic Kidney Disease, Seizures, Sexually Transmitted Disease - [facility] Procedures GROUP PSYCHOTHERAPY (08/23/17) INDIV PSYCHOTHERAPY FOR SUBSTANCE ABUSE TREATMENT, SUPPORT (04/11/17) INDIVIDUAL PSYCHOTHERAPY, SUPPORTIVE (08/23/17) MEDICATION MANAGEMENT (04/11/17) MEDS MGMT FOR SUBSTANCE ABUSE TREATMENT, METHADONE MAINT (04/11/17) Family History: States: Unknown Family Hx - Social History Hx Alcohol Use: No Hx Substance Use: No - Immunization History Hx Tetanus Toxoid Vaccination: No Hx Influenza Vaccination: No Hx Pneumococcal Vaccination: No Review Of Systems Except As Marked, All Systems Reviewed And Found Negative. Constitutional: Negative for: Fever, Chills Cardiovascular: Negative for: Chest Pain, Palpitations Respiratory: Negative for: Cough, Shortness of Breath Gastrointestinal: Negative for: Nausea, Vomiting, Abdominal Pain Neurological: Negative for: Headache, Dizziness Psych: Positive for: Suicidal ideation Physical Exam - Physical Exam Appears: Non-toxic, No Acute Distress Skin: Normal Color, Warm, Dry Head: Atraumatic, Normacephalic Eye(s): bilateral: Normal Inspection Oral Mucosa: Moist Cardiovascular: Rhythm Regular, No Murmur Respiratory: Normal Breath Sounds, No Rales, No Rhonchi, No Wheezing Extremity: Normal ROM, No Deformity Neurological/Psych: Oriented x3, Normal Speech ED Course And Treatment - Laboratory Results Result Diagrams: 11/07/17 10:17 11/07/17 10:17 O2 Sat by Pulse Oximetry: 99 (RA) Pulse Ox Interpretation: Normal Medical Decision Making Medical Decision Making: Plan: Blood work Urinalysis Crisis evaluation Reassess Pt is medically cleared. Pt will admitted under Dr. Guajardo's service for Schizoaffective disorder. Disposition Discussed With DrGisela: Marlon Guajardo Doctor Will See Patient In The: Hospital Counseled Patient/Family Regarding: Studies Performed, Diagnosis - Disposition Disposition: HOSPITALIZED Disposition Time: 13:05 Condition: STABLE Forms: [facility] (Khmer) - Clinical Impression Clinical Impression: Schizoaffective disorder - Scribe Statement The provider has reviewed the documentation as recorded by the Scribe Gilma Subramanian All medical record entries made by the Scribe were at my direction and personally dictated by me. I have reviewed the chart and agree that the record accurately reflects my personal performance of the history, physical exam, medical decision making, and the department course for this patient. I have also personally directed, reviewed, and agree with the discharge instructions and disposition.
[2017-11-07 10:24] LABS: SQUAMOUS EPITHIAL 3 /hpf (0-5); URINE BACTERIA RARE (<OCC); URINE BILIRUBIN NEGATIVE (NEGATIVE); URINE BLOOD NEGATIVE (NEGATIVE); URINE CLARITY Clear (Clear); URINE COLOR Yellow (YELLOW); URINE GLUCOSE (UA) NORMAL (Normal); URINE LEUKOCYTE ESTERASE 1+ Leu/uL (Negative); URINE NITRATE NEGATIVE (NEGATIVE); URINE PROTEIN NEGATIVE (NEGATIVE); URINE UROBILINOGEN NORMAL mg/dL (0.2-1.0)
[2017-11-07 10:33] LABS: ALB/GLOB RATIO 1.3 (1.0-2.1); ALBUMIN 4.3 g/dL (3.5-5.0); ALT/SGPT 22 U/L (21-72); AST/SGOT 26 U/L (17-59); BLOOD UREA NITROGEN 13 mg/dL (9-20); CALCIUM 9.4 mg/dl (8.6-10.4); GFR AFRICAN-AMERICAN > 60; GFR NON-AFRICAN AMERICAN > 60
[2017-11-07 10:37] LABS: BARBITURATES, UR NEGATIVE (NEGATIVE); OPIATES, UR NEGATIVE (NEGATIVE); PHENCYCLIDINE, UR NEGATIVE (NEGATIVE)
[2017-11-07 10:55] LABS: BASO # 0.1 K/uL (0.0-0.2); BASO % 1.2 % (0.0-2.0); EOS % 0.5 % (0.0-4.0); HEMOGLOBIN 12.9 g/dL (12.0-18.0); LYMPH # 2.2 K/uL (1.0-4.3); LYMPH % 31.5 % (20.0-40.0); MEAN CELL VOLUME 85.1 fL (80.0-94.0); MEAN CORPUSCULAR HEMOGLOBIN 29.5 pg (27.0-31.0); MEAN CORPUSCULAR HGB CONC 34.6 g/dL (33.0-37.0); MEAN PLATELET VOLUME 9.4 fL (7.2-11.7); MONO # 0.3 K/uL (0.0-0.8); MONO % 4.7 % (0.0-10.0); NEUT # 4.4 K/uL (1.8-7.0); NEUT % 62.1 % (50.0-75.0); NRBC % 0.1 % (0.0-2.0); RBC 4.37 Mil/uL (4.40-5.90); RED CELL DISTRIBUTION WIDTH 14.6 % (11.5-14.5); WHITE BLOOD COUNT 7.1 K/uL (4.8-10.8)
[2017-11-07 11:03] LABS: BENZODIAZEPINES, UR POSITIVE (NEGATIVE)
--- NOTE | 2017-11-07 14:57 | PCM.BM ---
<Giovana Odell - Last Filed: 11/07/17 14:54> Treatment Plan Problems - Problems identified on initial assessmt Depression Date Initiated: 11/07/17 Time Initiated: 14:55 Assessment reference: NA Status: Active psychosis Date Initiated: 11/07/17 Time Initiated: 14:56 Assessment reference: NA Status: Active Treatment assets and liabiliti Patient Assests: cooperative, self-reliant, ADL independent, physically healthy , good past tx response, cognitively intact Patient Liabilities: live alone, substance abuse - Milieu Protocol Maintain good personal hygiene: daily Encourage regular showers Conduct patient checks and document Observation sheet: Q15 minutes Maintain personal safety: every shift Educate patient to report safety concerns to staff, every shift Monitor environment for contraband/sharps Medication safety: Monitor for expected outcome, potential side effects: every shift, Assess barriers to learning: every shift, Assess readiness for medication education: every shift <Melissa Johansen - Last Filed: 11/09/17 11:14> Family Contact Family involvement: Famliy/SO not involved - Goals for Treatment Patient goals for treatment: "I want to go back to the methadone clinic." Discharge/Continuing Care - Education Needs Education Needs: Patient Medication, Patient Community resources - Discharge Discharge Criteria: Tolerates medication w/o severe side effects, No longer exhibiting s/s of withdrawal, Reduction of target symptoms Discharge to:: Halfway - Treatment Team Participation Discussed with Family/SO: No Was Patient/Family/SO present at Treatment Team Meeting: Yes <Vinayak Judd - Last Filed: 11/09/17 11:16> - Diagnosis (1) Schizoaffective disorder Status: Chronic Interventions: 11/09/17 11:15 * Assess/adjust medications daily and /or as needed * See patient on an individual basis 7x/week to assess status of hallucinations * Discuss risks, benefits, side effects and alternatives of medications * (2) Opioid use disorder, severe, in sustained remission Status: Acute Interventions: 11/09/17 11:16 * Assess 7x/week regarding severity of withdrawal * Educate regarding risks, benefits, side effects and alternatives of medications * Use Motivational Interviewing for abstinence * Use CBT for relapse prevention * Medication management for withdrawal symptoms * Encourage medication assisted treatment *
[2017-11-08] MEDS ORDERED: METHADONE 100 MG PO ONE ×2 (12:30)
[2017-11-08] MEDS: Tobramycin/Dexamethasone (Tobradex) Opth Sol (2.5 ml) OD SCH ×2 (12:36→17:42)
[2017-11-08] MEDS ORDERED: Albuterol HFA 90 mcg/actuation (8 g) INH PRN (16:00)
--- NOTE | 2017-11-08 19:50 | PCM.PSYCH ---
Initial Psychiatric Evaluation - Initial Psychiatric Evaluation Type of Admission: Voluntary Legal Status: Capacity Chief Complaint (in patient's own words): I started having suicidal ideations with plan to jump in front of train. History of Present Illness and Precipitating Events: Patient is a 47 years old, single, unemployed, on SSDI, -[place] male with history of schizoaffective disorder, alcohol use disorder and opiate use disorder was admitted due to worsening depression and auditory hallucinations secondary to noncompliance with treatment after discharge from the hospital. Patient reported started feeling depressed with decreased sleep and appetite, hopelessness helplessness, with suicidal ideations with plan to jump in front of train. Denied any homicidal ideations. Reported history of once previous suicidal attempts 20 years ago by overdose on medication and was admitted in the hospital. Also reported hearing voices, telling him to kill himself, last heard yesterday. Also reported feeling at times that people are after him. He has history of about 12 inpatient psychiatric admissions. Patient did not see any psychiatrist outside. Reported drinking alcohol recently, large amount. His urine drug screen was negative for alcohol. It was positive for benzos. Patient reported using large amount of Xanax. Patient is also on methadone because of opiate use. Currently he is taking methadone 100 mg daily. Reported he smokes one pack of cigarettes daily requesting for nicotine patch. Patient was born in [place], not working, on SSDI. Lives alone. Never and has no children. His height is 5 feet 2 inches and weight is 160 pounds. Current Medications: Active Medications Generic Name Dose Route Start Last Admin Trade Name Freq PRN Reason Stop Dose Admin Albuterol 1 puff 11/08/17 16:00 Ventolin Hfa 90 Mcg/Actuation (8 G) INH RQ4 PRN Shortness of Breath Amlodipine Besylate 10 mg 11/07/17 16:15 11/08/17 09:15 Norvasc PO 10 mg DAILY MIREYA Administration Aripiprazole 10 mg 11/07/17 16:15 11/08/17 09:15 Abilify PO 10 mg DAILY MIREYA Administration Chlordiazepoxide 25 mg 11/07/17 18:00 11/08/17 17:32 Librium PO 11/11/17 17:59 25 mg TID MIREYA Administration Taper Clonidine HCl 0.1 mg 11/07/17 19:40 11/07/17 20:16 Catapres PO 0.1 mg Q8 PRN Administration COWS Score More or Equal to 5 Escitalopram Oxalate 20 mg 11/07/17 16:15 11/08/17 09:15 Lexapro PO 20 mg DAILY MIREYA Administration Gabapentin 300 mg 11/07/17 18:00 11/08/17 17:33 Neurontin PO 300 mg BID MIREYA Administration Hydroxyzine HCl 50 mg 11/07/17 16:08 11/07/17 16:15 Atarax PO 50 mg Q6 PRN Administration Anxiety Ibuprofen 400 mg 11/08/17 09:13 Motrin Tab PO Q6H PRN Pain, moderate (4-7) Tobramycin/Dexamethasone 1 ml 11/08/17 12:30 11/08/17 17:42 Tobradex Opht Susp OD 1 drop BID MIREYA Administration Trazodone HCl 50 mg 11/07/17 22:00 11/07/17 21:16 Desyrel PO 50 mg HS MIREYA Administration Past Psychiatric History - Past Psychiatric History Previous Treatment History: Inpatient At [facility]: At various hospitals including [facility]. History of Abuse: None reported History of ETOH/Drug Use: See HPI History of Family Illness: None reported Pertinent Medical Hx (Current Medical&Sleep Prob, Allergies): Allergies Allergy/AdvReac Type Severity Reaction Status Date / Time No Known Allergies Allergy Verified 11/07/17 09:19 No Known Home Med 11/07/17 Hypertension Diabetes mellitus Asthma Review of Systems - Psychiatric Psychiatric: Depression, Hallucinations Mental Status Examination - Personal Presentation Personal Presentation: Looks stated age - Affect Affect: Flat - Motor Activity Motor Activity: Calm - Reliability in Providing Information Reliability in Providing Information: Fair - Speech Speech: Organized - Mood Mood: Depressed, Other - Formal Thought Process Formal Thought Process: No Impairment (At the time of evaluation) - Hallucinations/Delusions Hallucinations: Other (None reported) Delusions: Other - Obsessions/Compulsions Obsessions: None Compulsions: None - Cognitive Functions Orientation: Person, Place, Situation, Time Sensorium: Alert Attention/Concentration: Attentive Abstract Thinking: [place] Estimate of Intelligence: Average Judgement: Intact, as evidence by: Insight regarding need for hospitalization Memory: Recent intact, as evidence by: 3/3 object recall, Remote intact, as evidenced by: Ability to recall historical events - Risk Risk: Withdrawal, Diminished functioning - Strength & Assets Inventory Strength & Assets Inventory: Cooperative - Limitations Limitations: Living alone DSM 5 DX - DSM 5 DSM 5 Diagnosis: Schizoaffective disorder depressive type Alcohol use disorder severe Anxiolytic use disorder severe Opiate use disorder on agonist therapy(Methadone) - Recommended/Plan of Treatment Treatment Recommendations and Plan of Treatment: Patient education Supportive therapy Motivational interview for abstinence CBT for relapse prevention We will start Librium detox protocol for alcohol and anxiolytic withdrawal Methadone Other as needed medications Abilify Projected ELOS: 8-10 days Discharge Plan and Discharge Criteria: Will go back to his methadone maintenance program - Smoking Cessation Smoking Cessation Initiated: Yes
[2017-11-09] MEDS: Tobramycin/Dexamethasone (Tobradex) Opth Sol (2.5 ml) OD SCH ×2 (09:29→17:17)
--- NOTE | 2017-11-09 11:12 | PCM.PYCHPN ---
Psychiatric Progress Note - Psychiatric Progress Note Patient seen today, length of contact: 15 min Patient Chief Complaint: I am feeling very anxious. Problems Identified/Issues Discussed: Patient seen and evaluated, chart reviewed and discussed with the nurse. Patient remained disorganized and internally preoccupied. He still reports of hearing voices and appears paranoid and delusional. Patient reports withdrawal symptoms including nausea, headaches, cramps and sweating. He reports depressed mood and anxiety and irritability. He remained isolated, confined and withdrawn. Patient is compliant with medications and denies any side effects. Symptoms are improving but need more time to stabilize. Support and psychoeducation given. Medication Change: Yes Medical Record Reviewed: Yes Mental Status Examination - Cognitive Function Orientation: Person, Place, Situation, Time Memory: Intact Attention: WNL Concentration: Poor Association: Loose Fund of Knowledge: Poor - Mood Mood: Depressed, Anxious, Other - Affect Affect: Flat - Speech Speech: Soft - Formal Thought Process Formal Thought Process: Paranoia, Loosening of associations - Suicidal Ideation Suicidal Ideation: No - Homicidal Ideation Homicidal Ideation: No Goal/Treatment Plan - Goal/Treatment Plan Need for Continued Stay: Severe depression anxiety, Severe functional impairment Progress Toward Problem(s) and Goals/Treatment Plan: Schizoaffective disorder depressive type Alcohol use disorder severe Anxiolytic use disorder severe Opiate use disorder on agonist therapy(Methadone) Patient education Supportive therapy Motivational interview for abstinence CBT for relapse prevention We will start Librium detox protocol for alcohol and anxiolytic withdrawal Methadone Other as needed medications Abilify - Smoking Cessation Smoking Cessation Initiated: No
[2017-11-09] MEDS ORDERED: Methadone 40 mg Tab PO ONE (11:45)
[2017-11-10] MEDS: Tobramycin/Dexamethasone (Tobradex) Opth Sol (2.5 ml) OD SCH ×2 (09:49→17:23)
[2017-11-10] MEDS: Methadone 40 mg Tab PO SCH (09:50)
--- NOTE | 2017-11-10 13:32 | PCM.PYCHPN ---
Psychiatric Progress Note - Psychiatric Progress Note Patient seen today, length of contact: 15 min Patient Chief Complaint: racing thoughts Problems Identified/Issues Discussed: Patient seen and examined at bedside. Chart reviewed and discussed with nurse and staff. Patient reports he the voices are less, but still audible. He has difficulty sleeping at night due to racing thoughts. He paces up and down the hallway, due to restlessness, and inability to stop the continued thoughts. He states he feels anxious and edgy. Denied any delusions, no suicidal or homicidal ideation. As per nursing, patient remained isolated, confined and withdrawn. Patient is compliant with medications and denies any side effects. Symptoms are improving but will need more time to stabilize. Support and psychoeducation given. Medication Change: Yes Medical Record Reviewed: Yes Mental Status Examination - Cognitive Function Orientation: Person, Place, Situation, Time Memory: Intact Attention: WNL Concentration: Poor Association: Loose Fund of Knowledge: Poor - Mood Mood: Depressed, Anxious, Other - Affect Affect: Flat - Speech Speech: Soft - Formal Thought Process Formal Thought Process: Paranoia, Loosening of associations - Suicidal Ideation Suicidal Ideation: No - Homicidal Ideation Homicidal Ideation: No Goal/Treatment Plan - Goal/Treatment Plan Need for Continued Stay: Severe depression anxiety, Severe functional impairment Progress Toward Problem(s) and Goals/Treatment Plan: Schizoaffective disorder depressive type -Patient education -Supportive therapy -Motivational interview for abstinence -CBT for relapse prevention -Lexapro 20mg by mouth daily, Abilify 10mg by mouth daily, Trazodone 50mg PO QHS Alcohol use disorder severe -We will start Librium detox protocol for alcohol and anxiolytic withdrawal Opiate use disorder on agonist therapy(Methadone) -Methadone Anxiolytic use disorder severe - Gabapentin 300mg by mouth twice a day HTN -Norvasc 10mg by mouth daily Hx of Cataract Surgery -Tobradex outic drops DW Cristina Butt DO, PGY-1
[2017-11-10] MEDS: Divalproex 250 mg DR Tab PO SCH (17:22)
[2017-11-11] MEDS: Methadone 40 mg Tab PO SCH (10:01)
[2017-11-11] MEDS: Divalproex 250 mg DR Tab PO SCH ×2 (10:02→17:09)
[2017-11-11] MEDS: Tobramycin/Dexamethasone (Tobradex) Opth Sol (2.5 ml) OD SCH ×2 (10:02→17:10)
[2017-11-12] MEDS: Methadone 40 mg Tab PO SCH (10:14)
[2017-11-12] MEDS: Tobramycin/Dexamethasone (Tobradex) Opth Sol (2.5 ml) OD SCH ×2 (10:14→17:16)
[2017-11-12] MEDS: Divalproex 250 mg DR Tab PO SCH ×2 (10:15→17:16)
--- NOTE | 2017-11-12 11:46 | PCM.PYCHPN ---
Psychiatric Progress Note - Psychiatric Progress Note Patient seen today, length of contact: 15 min Patient Chief Complaint: can't sleep, anxious Problems Identified/Issues Discussed: Patient seen and examined at bedside. Chart reviewed and discussed with nurse and staff. Patient reports the voices are less, but still audible. He has difficulty sleeping at night due to racing thoughts. He paces up and down the hallway, due to restlessness, and inability to stop the continued thoughts. He states he feels anxious and edgy. Patient remained disorganized and internally preoccupied. Denied any delusions, no suicidal or homicidal ideation. As per nursing, patient remained isolated, confined and withdrawn. Patient is compliant with medications and denies any side effects. Symptoms are improving but will need more time to stabilize. Support and psychoeducation given. Medication Change: Yes Medical Record Reviewed: Yes Mental Status Examination - Cognitive Function Orientation: Person, Place, Situation, Time Memory: Intact Attention: WNL Concentration: Poor Association: Loose Fund of Knowledge: Poor - Mood Mood: Depressed, Anxious, Other - Affect Affect: Flat - Speech Speech: Soft - Formal Thought Process Formal Thought Process: Paranoia, Loosening of associations - Suicidal Ideation Suicidal Ideation: No - Homicidal Ideation Homicidal Ideation: No Goal/Treatment Plan - Goal/Treatment Plan Need for Continued Stay: Severe depression anxiety, Severe functional impairment Progress Toward Problem(s) and Goals/Treatment Plan: Schizoaffective disorder depressive type -Patient education -Supportive therapy -Motivational interview for abstinence -CBT for relapse prevention -Abilify 15mg by mouth daily, Depakote 250mg by mouth twice daily, Trazodone 50mg by mouth at night Opiate use disorder on agonist therapy(Methadone) -Methadone daily Alcohol use disorder severe -Librium taper completed Anxiolytic use disorder severe -Gabapentin 300mg by mouth twice a day Hx of HTN -Norvasc 10mg by mouth daily Hx of Cataract Surgery -Tobradex outic drops DW Dr. Judd, Cristina Fowler DO, PGY-1
[2017-11-13] MEDS: Tobramycin/Dexamethasone (Tobradex) Opth Sol (2.5 ml) OD SCH ×2 (09:46→17:14)
[2017-11-13] MEDS: Methadone 40 mg Tab PO SCH (09:47)
[2017-11-13] MEDS: Divalproex 500 mg DR Tab PO SCH ×2 (10:06→17:14)
[2017-11-14] MEDS: Divalproex 500 mg DR Tab PO SCH ×2 (09:43→17:09)
[2017-11-14] MEDS: Tobramycin/Dexamethasone (Tobradex) Opth Sol (2.5 ml) OD SCH ×2 (09:45→17:09)
[2017-11-14] MEDS: Methadone 40 mg Tab PO SCH (09:46)
[2017-11-14] MEDS ORDERED: Influenza Vaccine 60 mcg/0.5 mL SYR (4YR UP) IM ONE (10:00)
[2017-11-15] MEDS: Tobramycin/Dexamethasone (Tobradex) Opth Sol (2.5 ml) OD SCH ×2 (09:06→20:29)
[2017-11-15] MEDS: Divalproex 500 mg DR Tab PO SCH ×2 (09:07→18:21)
[2017-11-15] MEDS: Methadone 40 mg Tab PO SCH (09:07)
[2017-11-16] MEDS: Tobramycin/Dexamethasone (Tobradex) Opth Sol (2.5 ml) OD SCH ×2 (09:24→17:39)
[2017-11-16] MEDS: Methadone 40 mg Tab PO SCH (09:25)
[2017-11-16] MEDS: Divalproex 500 mg DR Tab PO SCH ×2 (09:25→17:42)
--- NOTE | 2017-11-16 10:08 | PCM.BM ---
<Fanny Johanseny - Last Filed: 11/16/17 10:07> Treatment Plan Problems - Problems identified on initial assessmt Depression Date Initiated: 11/07/17 Time Initiated: 14:55 Assessment reference: NA Status: Active psychosis Date Initiated: 11/07/17 Time Initiated: 14:56 Assessment reference: NA Status: Active Treatment assets and liabiliti Patient Assests: cooperative, self-reliant, ADL independent, physically healthy , good past tx response, cognitively intact Patient Liabilities: live alone, substance abuse - Milieu Protocol Maintain good personal hygiene: daily Encourage regular showers Conduct patient checks and document Observation sheet: Q15 minutes Maintain personal safety: every shift Educate patient to report safety concerns to staff, every shift Monitor environment for contraband/sharps Medication safety: Monitor for expected outcome, potential side effects: every shift, Assess barriers to learning: every shift, Assess readiness for medication education: every shift Milieu Narrative: Schizoaffective disorder depressive type Alcohol use disorder severe Anxiolytic use disorder severe Opiate use disorder on agonist therapy(Methadone) Patient education Supportive therapy Motivational interview for abstinence CBT for relapse prevention We will start Librium detox protocol for alcohol and anxiolytic withdrawal Methadone Other as needed medications Abilify Family Contact Family involvement: Famliy/SO not involved - Goals for Treatment Patient goals for treatment: "I want to go back to the methadone clinic." Discharge/Continuing Care - Education Needs Education Needs: Patient Medication, Patient Community resources - Discharge Discharge Criteria: Tolerates medication w/o severe side effects, No longer exhibiting s/s of withdrawal, Reduction of target symptoms Discharge to:: Snf - Treatment Team Participation Patient/Family/SO Statement: Schizoaffective disorder depressive type Alcohol use disorder severe Anxiolytic use disorder severe Opiate use disorder on agonist therapy(Methadone) Patient education Supportive therapy Motivational interview for abstinence CBT for relapse prevention We will start Librium detox protocol for alcohol and anxiolytic withdrawal Methadone Other as needed medications Abilify Discussed with Family/SO: No Was Patient/Family/SO present at Treatment Team Meeting: Yes Treatment Plan Review - Problem Depression Time Initiated: 14:55 psychosis Time Initiated: 14:56 - Discharge / Continuing Care Discharge to:: Home Behavioral Health Services: Outpatient therapy, Other Health Needs: Medications/Rx, Alcohol/Drug treatment <Naren Aguilera - Last Filed: 11/16/17 13:54> Treatment Plan Review - Problem Depression Date Initiated: 11/16/17 Time Initiated: 13:53 Progress toward outcomes: improved psychosis Date Initiated: 11/16/17 Time Initiated: 13:54 Progress toward outcomes: improved <Vinayak Judd - Last Filed: 11/16/17 15:43> - Diagnosis (1) Schizoaffective disorder Status: Chronic Interventions: 11/16/17 15:43 * Assess/adjust medications daily and /or as needed * See patient on an individual basis 7x/week to assess status of hallucinations * Discuss risks, benefits, side effects and alternatives of medications * (2) Opioid use disorder, severe, in sustained remission Status: Acute Interventions: 11/16/17 15:43 * Assess 7x/week regarding severity of withdrawal * Educate regarding risks, benefits, side effects and alternatives of medications * Use Motivational Interviewing for abstinence * Use CBT for relapse prevention * Medication management for withdrawal symptoms * Encourage medication assisted treatment *
--- NOTE | 2017-11-16 14:56 | PCM.PYCHPN ---
Psychiatric Progress Note - Psychiatric Progress Note Patient seen today, length of contact: 15 min Patient Chief Complaint: "I'm overwhelmed and lonely." Problems Identified/Issues Discussed: Pt states he still feels overwhelmed by nothing in particular and feels very lonely, although he is feeling a little better. He is not sleeping at night due to inability to fall asleep. He states he is rarely hungry. Pt states he sometimes thinks about hurting himself, but currently denies suicidal ideation. Pt denies homicidal thoughts. Pt remains disorganized and internally preoccupied. Patient reports withdrawal symptoms including nausea, headaches, cramps and sweating. He reports depressed mood and anxiety and irritability. He remained isolated, confined and withdrawn. Patient is compliant with medications and denies any side effects. Symptoms are improving but need more time to stabilize. Support and psychoeducation given. Medication Change: Yes (detox changes daily) Medical Record Reviewed: Yes Mental Status Examination - Cognitive Function Orientation: Person, Place, Situation, Time Memory: Intact Attention: WNL Concentration: Poor Association: Loose Fund of Knowledge: Poor - Mood Mood: Depressed, Anxious, Other - Affect Affect: Flat, Depressed - Speech Speech: Soft - Formal Thought Process Formal Thought Process: Paranoia, Loosening of associations - Suicidal Ideation Suicidal Ideation: No - Homicidal Ideation Homicidal Ideation: No Goal/Treatment Plan - Goal/Treatment Plan Need for Continued Stay: Severe depression anxiety, Severe functional impairment Progress Toward Problem(s) and Goals/Treatment Plan: Schizoaffective disorder depressive type Alcohol use disorder severe Anxiolytic use disorder severe Opiate use disorder on agonist therapy(Methadone) Patient education Supportive therapy Motivational interview for abstinence CBT for relapse prevention Continue Librium detox protocol for alcohol and anxiolytic withdrawal Methadone Other as needed medications Abilify
[2017-11-17 06:18] VITALS: BP 110/77; PULSE 70; RESP 20; TEMP 98.2; O2SAT 97
[2017-11-17] MEDS: Divalproex 500 mg DR Tab PO SCH (10:06)
--- NOTE | 2017-11-17 11:33 | PCM.PYCHDC ---
Mental Status Examination - Mental Status Examination Orientation: Person, Place, Situation, Time Memory: Intact Mood: Neutral Affect: Constricted Speech: Soft Attention: WNL Concentration: WNL Association: WNL Fund of Knowledge: WNL Formal Thought Process: No Impairment Description of patient's judgement and insight: good, fair Psychotic Thoughts and Behaviors: denies any AVH Suicidal Ideation: No Current Homicidal Ideation?: No Discharge Summary - Discharge Note Reason for Hospitalization: Patient is a 47 years old, single, unemployed, on SSDI, -[place] male with history of schizoaffective disorder, alcohol use disorder and opiate use disorder was admitted due to worsening depression and auditory hallucinations secondary to noncompliance with treatment after discharge from the hospital. Patient reported started feeling depressed with decreased sleep and appetite, hopelessness helplessness, with suicidal ideations with plan to jump in front of train. Denied any homicidal ideations. Reported history of once previous suicidal attempts 20 years ago by overdose on medication and was admitted in the hospital. Also reported hearing voices, telling him to kill himself, last heard yesterday. Also reported feeling at times that people are after him. He has history of about 12 inpatient psychiatric admissions. Patient did not see any psychiatrist outside. Reported drinking alcohol recently, large amount. His urine drug screen was negative for alcohol. It was positive for benzos. Patient reported using large amount of Xanax. Patient is also on methadone because of opiate use. Currently he is taking methadone 100 mg daily. Reported he smokes one pack of cigarettes daily requesting for nicotine patch. Patient was born in [place], not working, on SSDI. Lives alone. Never and has no children. His height is 5 feet 2 inches and weight is 160 pounds. Laboratory Data: Abnormal Lab Results 11/16/17 11/17/17 16:18 07:58 POC Glucose (mg/dL) 96 116 H Consultations:: List each consultation separately and include: 1. Reason for request. 2. Findings. 3. Follow-up Summary of Hospital Course include:: 1. Description of specific treatment plan utilized for patients during their course of treatmen. 2. Summarize the time- course for resolution of acute symptoms and/or regressed behaviors. 3. Describe issues identified and worked on during hospitalization. 4. Describe medication utilized. 5. Describe medical problems identified and treated. 6. Reassessment of suicide risk - Diagnosis (1) Schizoaffective disorder Current Visit: Yes Status: Chronic Priority: High (2) Opioid use disorder, severe, in sustained remission Current Visit: Yes Status: Acute - Final Diagnosis (DSM 5) Condition upon Discharge: STABLE DSM 5: Schizoaffective disorder depressive type Alcohol use disorder severe Anxiolytic use disorder severe Opiate use disorder on agonist therapy(Methadone) Disposition: HOME/ ROUTINE Follow-up Treatment Plan: Schizoaffective disorder depressive type Alcohol use disorder severe Anxiolytic use disorder severe Opiate use disorder on agonist therapy(Methadone) Patient education Supportive therapy Motivational interview for abstinence CBT for relapse prevention Continue Librium detox protocol for alcohol and anxiolytic withdrawal Methadone Other as needed medications Abilify Prescriptions/Medication Reconciliation: Albuterol HFA [Ventolin HFA 90 mcg/actuation (8 g)] 1 puff INH RQ4 PRN #1 inhaler PRN Reason: Shortness Of Breath amLODIPine [Norvasc] 10 mg PO DAILY #30 tab ARIPiprazole [Abilify] 15 mg PO DAILY #30 tab Divalproex [Depakote DR] 500 mg PO BID #60 tcp metFORMIN [glucOPHAGE] 500 mg PO BID #60 tab traZODone [Desyrel] 50 mg PO HS PRN #30 tab PRN Reason: Insomnia
[2017-11-17] MEDS: Tobramycin/Dexamethasone (Tobradex) Opth Sol (2.5 ml) OD SCH (11:45)
[2017-11-17] MEDS ORDERED: Methadone 40 mg Tab PO ONE (12:00)
== END 2017-11-17 12:58 | disposition home or self-care (01) | DRG 430 ==
LOC: C.ER 09:09 → C.5E 13:04
PROC: GZ3ZZZZ Medication Management (ICD-10-PCS; principal; 2017-11-07)
PROC: GZ56ZZZ Individual Psychotherapy, Supportive (ICD-10-PCS; 2017-11-07)
PROC: HZ2ZZZZ Detoxification Services for Substance Abuse Treatment (ICD-10-PCS; 2017-11-07)
PROC: HZ81ZZZ Medication Management for Substance Abuse Treatment, Methadone Maintenance (ICD-10-PCS; 2017-11-07)
PROC: HZ59ZZZ Individual Psychotherapy for Substance Abuse Treatment, Supportive (ICD-10-PCS; 2017-11-07)
DX: F25.1 Schizoaffective disorder, depressive type (principal); R45.851 Suicidal ideations; F13.10 Sedative, hypnotic or anxiolytic abuse, uncomplicated; F11.21 Opioid dependence, in remission; F10.10 Alcohol abuse, uncomplicated; F17.210 Nicotine dependence, cigarettes, uncomplicated; E78.5 Hyperlipidemia, unspecified; F31.9 Bipolar disorder, unspecified; F41.9 Anxiety disorder, unspecified; I10 Essential (primary) hypertension; J45.909 Unspecified asthma, uncomplicated; Z91.19 Patient's noncompliance with other medical treatment and regimen

== ENCOUNTER 2017-11-25 08:58 | Observation (INO) | payer MEDICAID, OTHER ==
[2017-11-25 09:12] VITALS: BMI 32.1
[2017-11-25] MEDS ORDERED: Aspirin 325 mg EC Tablets PO STA (09:25)
--- NOTE | 2017-11-25 09:51 | RAD ---
PROCEDURE: CHEST RADIOGRAPH, 1 VIEW HISTORY: chest pain COMPARISON: Comparison chest dated 03/21/2017 FINDINGS: LUNGS: Mild bibasilar atelectasis PLEURA: No pneumothorax or pleural fluid seen. CARDIOVASCULAR: Normal. OSSEOUS STRUCTURES: No significant abnormalities. VISUALIZED UPPER ABDOMEN: Normal. OTHER FINDINGS: None. IMPRESSION: Minor bibasilar atelectasis.
[2017-11-25] MEDS ORDERED: Aspirin 325 mg EC Tablets PO ONE (09:54)
--- NOTE | 2017-11-25 09:58 | C.PDOC ---
History Of Present Illness 47 y/o male with PMHx of HTN, DM and Asthma presents to ED with complaints of chest pain since 7am this morning. Patient states she is compliant with medication and admits he feels sob. Patient denies fever, chills, headache, change in vision, abdominal pain, cough, sore throat or any other complaints at this time. Time Seen by Provider: 11/25/17 09:06 Chief Complaint (Nursing): Chest Pain History Per: Patient History/Exam Limitations: no limitations Onset/Duration Of Symptoms: Hrs Current Symptoms Are (Timing): Still Present Past Medical History Reviewed: Historical Data, Nursing Documentation, Vital Signs Vital Signs: Last Vital Signs Temp 97.9 F 11/25/17 09:13 Pulse 104 H 11/25/17 09:13 Resp 16 11/25/17 09:13 BP 134/87 11/25/17 09:13 Pulse Ox 97 11/25/17 10:01 - Medical History PMH: Anxiety, Asthma (takes ventolin), Bipolar Disorder, Cardia Arrhythmia ( tachycardia), Depression, HTN (pt unsure of name of medication), Hyperlipidemia , Schizophrenia Surgical History: No Surg Hx - [facility] DETOXIFICATION SERVICES FOR SUBSTANCE ABUSE TREATMENT (11/07/17) GROUP PSYCHOTHERAPY (08/23/17) INDIV PSYCHOTHERAPY FOR SUBSTANCE ABUSE TREATMENT, SUPPORT (11/07/17) INDIVIDUAL PSYCHOTHERAPY, SUPPORTIVE (11/07/17) MEDICATION MANAGEMENT (11/07/17) MEDS MGMT FOR SUBSTANCE ABUSE TREATMENT, METHADONE MAINT (11/07/17) Family History: States: No Known Family Hx - Social History Hx Alcohol Use: No Hx Substance Use: Yes - Immunization History Hx Tetanus Toxoid Vaccination: No Hx Influenza Vaccination: No Hx Pneumococcal Vaccination: No Review Of Systems Constitutional: Negative for: Fever, Chills ENT: Negative for: Throat Pain Cardiovascular: Positive for: Chest Pain Respiratory: Positive for: Shortness of Breath. Negative for: Cough Gastrointestinal: Negative for: Nausea, Vomiting Skin: Negative for: Rash Physical Exam - Physical Exam Appears: Non-toxic, No Acute Distress Skin: Warm, Dry, No Rash Head: Atraumatic, Normacephalic Eye(s): bilateral: Normal Inspection Oral Mucosa: Moist Neck: Normal ROM, Supple Cardiovascular: Rhythm Regular, No Murmur, Other (Tachycardic) Respiratory: No Rales, No Rhonchi, Wheezing (mild expiratory bilaterally) Gastrointestinal/Abdominal: Soft, No Tenderness, No Guarding, No Rebound Neurological/Psych: Oriented x3 ED Course And Treatment - Laboratory Results Result Diagrams: 11/25/17 10:08 11/25/17 10:08 ECG: Interpreted By Me, Viewed By Me ECG Rhythm: Sinus Tachycardia Rate From EC (BPM) O2 Sat by Pulse Oximetry: 97 (RA) Pulse Ox Interpretation: Normal Medical Decision Making Medical Decision Making: Assessment: Chest pain Disposition Discussed With DrGisela: Paradise [place] Counseled Patient/Family Regarding: Studies Performed, Diagnosis - Disposition Disposition: HOSPITALIZED Disposition Time: 11:14 Condition: FAIR Forms: [facility] (Hebrew) - Clinical Impression Clinical Impression: Chest pain - Scribe Statement The provider has reviewed the documentation as recorded by the Scribe Catherine Villarreal All medical record entries made by the Scribe were at my direction and personally dictated by me. I have reviewed the chart and agree that the record accurately reflects my personal performance of the history, physical exam, medical decision making, and the department course for this patient. I have also personally directed, reviewed, and agree with the discharge instructions and disposition.
[2017-11-25 10:13] LABS: BASO % 0.7 % (0.0-2.0); EOS # 0.2 K/uL (0.0-0.7); EOS % 2.5 % (0.0-4.0); HEMOGLOBIN 12.7 g/dL (12.0-18.0); LYMPH # 1.9 K/uL (1.0-4.3); MEAN CELL VOLUME 84.6 fL (80.0-94.0); MEAN CORPUSCULAR HEMOGLOBIN 28.8 pg (27.0-31.0); MEAN PLATELET VOLUME 9.5 fL (7.2-11.7); MONO # 0.5 K/uL (0.0-0.8); MONO % 8.2 % (0.0-10.0); NEUT # 3.5 K/uL (1.8-7.0); NEUT % 57.6 % (50.0-75.0); RBC 4.43 Mil/uL (4.40-5.90); RED CELL DISTRIBUTION WIDTH 14.4 % (11.5-14.5); WHITE BLOOD COUNT 6.1 K/uL (4.8-10.8)
[2017-11-25 10:27] LABS: ALB/GLOB RATIO 1.2 (1.0-2.1); ALBUMIN 4.1 g/dL (3.5-5.0); ALT/SGPT 38 U/L (21-72); AST/SGOT 26 U/L (17-59); BLOOD UREA NITROGEN 13 mg/dL (9-20); CALCIUM 8.7 mg/dl (8.6-10.4); GFR AFRICAN-AMERICAN > 60; GFR NON-AFRICAN AMERICAN > 60; LIPASE 121 U/L (23-300)
[2017-11-25 10:36] LABS: B-TYPE NATRIURETIC PEPTIDE 18.5 pg/mL (0-450)
[2017-11-25] MEDS ORDERED: Albuterol HFA 90 mcg/actuation (8 g) INH PRN (18:49)
--- NOTE | 2017-11-25 18:54 | CP.PCM.HP ---
History of Present Illness - History of Present Illness History of Present Illness: pt came in for chest pain l side pressure and sob Present on Admission - Present on Admission Any Indicators Present on Admission: No Review of Systems - Review of Systems Systems not reviewed;Unavailable: Acuity of Condition - Constitutional Constitutional: Fatigue - EENT Eyes: As Per HPI Ears: As Per HPI Nose/Mouth/Throat: As Per HPI - Cardiovascular Cardiovascular: As Per HPI - Respiratory Respiratory: As Per HPI - Gastrointestinal Gastrointestinal: As Per HPI - Genitourinary Genitourinary: As Per HPI - Reproductive: Male Reproductive:Male: As Per HPI - Musculoskeletal Musculoskeletal: As Per HPI - Integumentary Integumentary: As Per HPI - Neurological Neurological: As Per HPI - Psychiatric Psychiatric: As Per HPI, Depression Additional comments: substansce abuse - Endocrine Endocrine: Cold Intolorance - Hematologic/Lymphatic Hematologic: As Per HPI Past Patient History - Infectious Disease Hx of Infectious Diseases: None - Tetanus Immunizations Tetanus Immunization: Unknown - Past Medical History & Family History Past Medical History?: Yes - Past Social History Smoking Status: Heavy Smoker > 10 Cigarettes Daily - CARDIAC Hx Cardia Arrhythmia: Yes (tachycardia) Hx Hypertension: Yes (pt unsure of name of medication) - PULMONARY Hx Asthma: Yes (takes ventolin) - NEUROLOGICAL Hx Seizures: No - HEENT Hx HEENT Problems: Yes Hx Cataracts: Yes (right eye) Other/Comment: uses corrective glasses... states had cateract surgery few days ago. - RENAL Hx Chronic Kidney Disease: No - ENDOCRINE/METABOLIC Hx Diabetes Mellitus Type 2: Yes (metformin 1000mg daily) - HEMATOLOGICAL/ONCOLOGICAL Hx Human Immunodeficiency Virus (HIV): No - INTEGUMENTARY Hx Dermatological Problems: No - MUSCULOSKELETAL/RHEUMATOLOGICAL Hx Arthritis: No - GASTROINTESTINAL Hx Gastrointestinal Disorders: No - GENITOURINARY/GYNECOLOGICAL Hx Sexually Transmitted Disorders: No - PSYCHIATRIC Hx Anxiety: Yes Hx Bipolar Disorder: Yes Hx Depression: Yes Hx Schizophrenia: Yes Hx Substance Use: Yes - SURGICAL HISTORY Hx Surgeries: Yes Hx Cataract Extraction: Yes - ANESTHESIA Hx Anesthesia: No Meds Allergies/Adverse Reactions: Allergies Allergy/AdvReac Type Severity Reaction Status Date / Time No Known Allergies Allergy Verified 11/07/17 09:19 Physical Exam - Constitutional Appears: Non-toxic - Head Exam Head Exam: ATRAUMATIC - Eye Exam Eye Exam: Conjunctival injection Pupil Exam: PERRL - ENT Exam ENT Exam: Mucous Membranes Moist - Neck Exam Neck exam: Positive for: Full Rom - Respiratory Exam Respiratory Exam: Clear to Auscultation Bilateral - Cardiovascular Exam Cardiovascular Exam: REGULAR RHYTHM - GI/Abdominal Exam GI & Abdominal Exam: Normal Bowel Sounds - Rectal Exam Rectal Exam: Deferred - Extremities Exam Extremities exam: Positive for: normal inspection - Back Exam Back exam: NORMAL INSPECTION - Neurological Exam Neurological exam: Altered, Oriented x3 - Psychiatric Exam Psychiatric exam: Normal Affect - Skin Skin Exam: Normal Color Results - Vital Signs Recent Vital Signs: Last Vital Signs Temp 98.5 F 11/25/17 18:29 Pulse 87 11/25/17 18:29 Resp 18 11/25/17 18:29 BP 122/86 11/25/17 18:29 Pulse Ox 96 11/25/17 18:29 - Labs Result Diagrams: 11/25/17 10:08 11/25/17 10:08 Labs: Laboratory Results - last 24 hr 11/25/17 11/25/17 10:08 10:08 WBC 6.1 RBC 4.43 Hgb 12.7 Hct 37.5 MCV 84.6 MCH 28.8 MCHC 34.0 RDW 14.4 Plt Count 214 MPV 9.5 Neut % (Auto) 57.6 Lymph % (Auto) 31.0 Morgan % (Auto) 8.2 Eos % (Auto) 2.5 Baso % (Auto) 0.7 Neut # (Auto) 3.5 Lymph # (Auto) 1.9 Morgan # (Auto) 0.5 Eos # (Auto) 0.2 Baso # (Auto) 0.0 Sodium 139 Potassium 4.0 Chloride 94 L Carbon Dioxide 32 H Anion Gap 17 BUN 13 Creatinine 0.9 Est GFR ( Amer) > 60 Est GFR (Non-Af Amer) > 60 Random Glucose 152 H Calcium 8.7 Total Bilirubin 0.4 AST 26 ALT 38 Alkaline Phosphatase 66 Troponin I < 0.0120 NT-Pro-B Natriuret Pep 18.5 Total Protein 7.5 Albumin 4.1 Globulin 3.4 Albumin/Globulin Ratio 1.2 Lipase 121 Assessment & Plan - Assessment and Plan (Free Text) Assessment: ac chest pain depresion substansce abuse Plan: as per orders - Date & Time Date: 11/25/17 Time: 18:55
[2017-11-25] MEDS: Divalproex 500 mg DR Tab PO SCH (21:28)
[2017-11-26 08:54] LABS: CK-MB 0.87 ng/mL (0.0-3.38)
[2017-11-26] MEDS: Enoxaparin 40 mg Syringe SC SCH (10:10)
[2017-11-26] MEDS: Divalproex 500 mg DR Tab PO SCH ×2 (10:11→18:29)
[2017-11-26] MEDS: Methadone 40 mg Tab PO SCH (11:11)
[2017-11-26] MEDS: Ammonium Lactate 12% Lotion (225 g) EXT SCH (18:31)
--- NOTE | 2017-11-26 19:04 | CP.PCM.PN ---
Subjective - Date & Time of Evaluation Date of Evaluation: 11/26/17 Time of Evaluation: 19:02 - Subjective Subjective: chest pain r side Objective - Vital Signs/Intake and Output Vital Signs (last 24 hours): Temp Pulse Resp BP Pulse Ox 97.8 F 78 18 125/87 95 11/26/17 16:00 11/26/17 16:00 11/26/17 16:00 11/26/17 16:00 11/26/17 16:00 - Medications Medications: Current Medications Albuterol (Ventolin Hfa 90 Mcg/Actuation (8 G)) 1 puff INH RQ4 PRN PRN Reason: Shortness of Breath Amlodipine Besylate (Norvasc) 10 mg PO DAILY [facility] Last Admin: 11/26/17 10:09 Dose: 10 mg Divalproex Sodium (Depakote Dr) 500 mg PO BID [facility] Last Admin: 11/26/17 18:29 Dose: 500 mg Enoxaparin Sodium (Lovenox) 40 mg SC DAILY [facility] Last Admin: 11/26/17 10:10 Dose: 40 mg Ketoconazole (Nizoral) 5 gm TOP BID [facility] Last Admin: 11/26/17 18:31 Dose: 1 dose Lactic Acid (Lac-Hydrin 12% Lotion (225 G)) 10 gm EXT BID [facility] Last Admin: 11/26/17 18:31 Dose: 1 dose Metformin HCl (Glucophage) 500 mg PO BID [facility] Last Admin: 11/26/17 18:29 Dose: 500 mg Methadone HCl (Methadose) 80 mg PO DAILY [facility] Last Admin: 11/26/17 11:11 Dose: 80 mg Methadone HCl (Methadone) 20 mg PO DAILY [facility] Last Admin: 11/26/17 11:10 Dose: 20 mg Quetiapine Fumarate (Seroquel) 100 mg PO [facility] Trazodone HCl (Desyrel) 50 mg PO HS [facility] - Labs Labs: 11/25/17 10:08 11/25/17 10:08 - Constitutional Appears: Non-toxic - Head Exam Head Exam: NORMAL INSPECTION - Eye Exam Eye Exam: Normal appearance Pupil Exam: NORMAL ACCOMODATION - ENT Exam ENT Exam: Mucous Membranes Moist - Neck Exam Neck Exam: Full ROM - Respiratory Exam Respiratory Exam: Clear to Ausculation Bilateral - Cardiovascular Exam Cardiovascular Exam: REGULAR RHYTHM - GI/Abdominal Exam GI & Abdominal Exam: Soft - Rectal Exam Rectal Exam: NORMAL INSPECTION - Exam Exam: NORMAL INSPECTION - Extremities Exam Extremities Exam: Normal Inspection - Back Exam Back Exam: NORMAL INSPECTION - Neurological Exam Neurological Exam: Normal Gait - Psychiatric Exam Psychiatric exam: Normal Affect - Skin Skin Exam: Normal Color Assessment and Plan - Assessment and Plan (Free Text) Assessment: ac chest pain costchondritis tachycardia Plan: repeat ekg in am
[2017-11-27 01:16] VITALS: RESP 20
--- NOTE | 2017-11-27 02:25 | CON ---
DATE: PSYCHIATRIC CONSULTATION CHIEF COMPLAINT AND REASON FOR CONSULTATION: The patient has been referred by Dr. Quinones for co-management evaluation. The patient has history of schizoaffective disorder, on multiple medications, and history of opiate dependence, on methadone. HISTORY OF PRESENT ILLNESS: This is a case of 47-year-old male with history of hypertension, diabetes, and asthma. The patient was admitted for chest pain. The patient reports being compliant with medications. The patient is referred for evaluation as the patient has history of schizoaffective disorder. He reports he has been admitted several times in the past, at least 4 times. He also has been followed by Methadone Clinic in [facility] and takes methadone 100 mg daily. The patient has history of opiate dependence in the past but has been sober according to him, has then relapsed. He reports that he has been taking the following medications, Seroquel 100 mg at bedtime. He states that he also takes trazodone and Depakote 500 mg twice day; however on admission, he was given Abilify 15 mg daily which he refused to continue and just wants to be on Depakote, trazodone, and Seroquel 100 mg at bedtime. PAST MEDICAL HISTORY: The patient has history of diabetes, hypertension, history of opiate dependent, history of COPD, history of altered mental status in the past. LABORATORY DATA: WBC 6.1, potassium is 4, sodium 139, random glucose 130. Liver function tests are within normal limits. MEDICATIONS: The patient is on Depakote 500 mg daily, Trazodone 50 mg po hs prn , Abilify 15 mg daily, ketoconazole, famotidine, and albuterol. REVIEW OF SYSTEMS: GENERAL: A fairly looking male, alert, oriented x3, seen in his room. He states that he wants his methadone. He gave his ID and the nurse called in the clinic in [place] and confirmed his dose. SKIN: No diaphoresis. HEENT: No headache. No dizziness. NECK: Supple. RESPIRATORY: No dyspnea. No chest pain. CARDIOVASCULAR: No palpitation. GASTROINTESTINAL: No nausea. No vomiting. EXTREMITIES: The patient moves the extremities. MUSCULOSKELETAL: Feels weak. NEUROLOGIC: Alert and oriented x3. GENITOURINARY: No dysuria. PHYSICAL EXAMINATION: VITAL SIGNS: Temperature is 98.8, pulse rate 93, blood pressure 147/83, respirations 20, oxygen saturation 94%. MENTAL STATUS EXAMINATION: A fairly looking male who appears stocky. Alert and oriented x3. Seen in his room. Speech is spontaneous. Affect is reactive. Mood is dysphoric. Thought process is coherent. Thought content, the patient is asking for his methadone. He gave us his ID, and he also states he wants to go back to Seroquel because he has trouble sleeping. The patient does not want Abilify but he wants to go to Seroquel and trazodone and Depakote for his schizoaffective disorder. He states he has been compliant with his medication and reports no psychosis. No suicidal or homicidal ideation. Attention and memory seems to be fair. Insight and judgment is fair. Impulse control is fair. IMPRESSION: History of opiate dependence, currently on methadone as well as history of schizoaffective disorder, bipolar type, stable. History of chest pain, history of diabetes and hypertension. PLAN/RECOMMENDATIONS: The patient's medications reviewed. We will provide methadone 100 mg daily as dose has been confirmed by the nurse who called the clinic, the patient is a verified client in [facility]. We will discontinue Abilify and put him on Seroquel 100 mg at bedtime and then change the trazodone to 50 mg at bedtime. We will continue Depakote 500 mg b.i.d. We will try to check his Depakote levels. Likewise, he seems to be stable. The patient is awaiting medical clearance as the patient was admitted for chest pain. There is no little change his psych medications for now. Once the patient is medically stable, he can follow up in his outpatient clinic in [facility] in [facility]. Ariel Kiser MD MARE
--- NOTE | 2017-11-27 08:06 | CON ---
DATE: 11/26/2017 REQUESTING PHYSICIAN: Paradise Cartagena MD This is a 47-year-old black male with admitting diagnosis of chest pain. We had seen him at bedside this morning, alert, oriented x3. The patient presents with grossly mycotic onychomycosis of both feet. Grossly psoriatic skin, bilateral feet pulses are within normal limits, no open ulcers, no ishemic infectious lesions noted. Hypertrophic reduction at bedside without incident. The patient would benefit from topical Umecta cream q.12 hours. Danny Espinoza DPM
[2017-11-27 08:39] VITALS: BP 133/98; TEMP 97.9; O2SAT 98
[2017-11-27] MEDS: Ammonium Lactate 12% Lotion (225 g) EXT SCH (09:46)
[2017-11-27] MEDS: Methadone 40 mg Tab PO SCH (09:50)
[2017-11-27] MEDS: Enoxaparin 40 mg Syringe SC SCH (09:50)
[2017-11-27 12:21] VITALS: PULSE 82
--- NOTE | 2017-11-27 12:30 | CP.PCM.PN ---
Subjective - Date & Time of Evaluation Date of Evaluation: 11/27/17 Time of Evaluation: 12:27 - Subjective Subjective: pt seen and examined no chest pain ambulatory comfotale no ekg rhianna ngo neg Objective - Vital Signs/Intake and Output Vital Signs (last 24 hours): Temp Pulse Resp BP Pulse Ox 97.9 F 82 20 133/98 H 98 11/27/17 08:38 11/27/17 09:00 11/27/17 08:38 11/27/17 08:38 11/27/17 08:38 - Medications Medications: Current Medications Albuterol (Ventolin Hfa 90 Mcg/Actuation (8 G)) 1 puff INH RQ4 PRN PRN Reason: Shortness of Breath Amlodipine Besylate (Norvasc) [address] [facility] Last Admin: 11/27/17 09:51 Dose: 10 mg Divalproex Sodium (Depakote Dr) [address] [facility] Last Admin: 11/26/17 18:29 Dose: 500 mg Enoxaparin Sodium (Lovenox) [address] [facility] Last Admin: 11/27/17 09:50 Dose: 40 mg Ketoconazole (Nizoral) [address] [facility] Last Admin: 11/27/17 09:47 Dose: 1 dose Lactic Acid (Lac-Hydrin 12% Lotion (225 G)) [address] [facility] Last Admin: 11/27/17 09:46 Dose: 1 dose Metformin HCl (Glucophage) [address] [facility] Last Admin: 11/27/17 09:51 Dose: 500 mg Methadone HCl (Methadose) [address] [facility] Last Admin: 11/27/17 09:50 Dose: 80 mg Methadone HCl (Methadone) [address] [facility] Last Admin: 11/27/17 09:50 Dose: 20 mg Quetiapine Fumarate (Seroquel) 100 mg PO [facility] Last Admin: 11/26/17 21:35 Dose: 100 mg Trazodone HCl (Desyrel) [address] [facility] Last Admin: 11/26/17 21:35 Dose: 50 mg - Labs Labs: 11/25/17 10:08 11/25/17 10:08 - Constitutional Appears: Non-toxic - Head Exam Head Exam: NORMAL INSPECTION - Eye Exam Eye Exam: Normal appearance Pupil Exam: NORMAL ACCOMODATION - ENT Exam ENT Exam: Mucous Membranes Moist - Neck Exam Neck Exam: Normal Inspection - Respiratory Exam Respiratory Exam: Clear to Ausculation Bilateral - Cardiovascular Exam Cardiovascular Exam: REGULAR RHYTHM - GI/Abdominal Exam GI & Abdominal Exam: Normal Bowel Sounds - Rectal Exam Rectal Exam: NORMAL INSPECTION - Extremities Exam Extremities Exam: Full ROM - Back Exam Back Exam: NORMAL INSPECTION - Neurological Exam Neurological Exam: Normal Gait, Oriented x3 - Psychiatric Exam Psychiatric exam: Normal Affect - Skin Skin Exam: Normal Color Assessment and Plan - Assessment and Plan (Free Text) Assessment: chest pain hx of substansce on methadon depresion Plan: stble will d/c on med and f/u by his md
--- NOTE | 2017-11-27 12:47 | CON ---
DATE: 11/26/2017 SUBJECTIVE: The patient is seen at bedside for diabetic evaluation of bilateral feet. Referring physician has concerns of fungal infiltration to feet bilaterally. The patient was seen at bedside and interview was conducted. The patient has no pedal complaints or pain, has general concerns with elongated toenails and general appearance of skin of feet. The patient denies any trauma to the site. The patient denies significant erythema or swelling to the feet. The patient does not follow up with chair post machine operator, continuing on outpatient basis. The patient denies any acute overnight events. The patient denies recent nausea, vomiting, fever, chills, chest pain, dizziness, or itchiness. OBJECTIVE: GENERAL ASSESSMENT: The patient is alert, awake and oriented. The patient is worked up in no acute distress. The patient presented with normal mood and normal affect. LOWER EXTREMITY FOCUSED EXAMINATION: Vascular: Dorsalis pedis and posterior tibial pulses are grossly palpable grade 2/4. Temperature gradient runs warm to cool from proximal leg to distal toes within normal limits. The patient has absent pedal hair growth. No gross edema noted to bilateral lower extremity. DERMATOLOGICAL: All ten nail plates present as thickened with first and second toes bilaterally showing Gadiel-horm style elongation. Central three nail plates bilaterally are brittle. No malodor noted. No interdigital macerations in all eight interspaces noted. Distal nail tuft inferior to distal nail folds shows hyperkeratosis with keratinization from excessive nail growth. The patient's ankle skin presents with no erythema, though there is significant psoriasis and minor scaling, diffuse proximal extremity. Lower leg skin and dorsal skin of foot is also psoriatic. No active flaking noted. No open wounds noted. No hyperkeratotic or hyperpigmented lesions noted. NEUROLOGICAL: Protective sensation is grossly intact, negative Babinski sign bilaterally. MUSCULOSKELETAL: The patient has positive bilateral Silverskoid test showing limited ankle joint range of motion and extension and flexion, with noted stiff ankle joint blockage to dorsiflexion. Pedal muscle strength in all four major lower leg and foot muscle groups graded 5/5. The patient has proximal flat foot deformity. Positive Hubscher's maneuvers shows recreateable arches bilaterally. The patient has non-antalgic gait. The patient's first metatarsal range of motion bilaterally is within normal limits allowing adequate proportion. ASSESSMENT: 1. The patient presents with onychomycosis and elongated toenails. 2. 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 PLAN: The patient was seen and evaluated. Test labs and vitals were reviewed. The patient in detail discussed at length with attending, Dr. Mena, who endorsed the following plan. Aseptic nail debridement planned for tomorrow. The patient prescribed Lac-Hydrin 12% cream to be applied to the bilateral lower legs at areas of dryness twice daily. Instructed the patient to avoid applying Lac-Hydrin cream into interspace to avoid skin breakdown and to prevent development of maceration or open lesion. The patient prescribed ketoconazole 2% topical cream to aid with tinea pedis and onychomycosis. The patient is stable from podiatric standpoint. The patient is to follow up with outpatient chair post machine operator upon discharge. Diana Quesada DPM Danny Espinoza DPM MARE
--- NOTE | 2017-11-27 13:08 | CARD ---
APPROVED REPORT EKG Measurement Heart [id number] <Conclusion> Normal sinus rhythm ST elevation, probably due to early repolarization Borderline ECG
== END 2017-11-27 13:12 | disposition home or self-care (01) ==
LOC: C.ER 08:58 → C.9E 11:16 → C.5S 16:42 → C.9E 16:59 → C.5S 18:07 → C.9E 18:21 → C.6T 18:25
PROVIDERS: ADMIT Internal Medicine; ATTEND Internal Medicine
DX: R07.9 Chest pain, unspecified (principal); J44.9 Chronic obstructive pulmonary disease, unspecified; I10 Essential (primary) hypertension; E11.40 Type 2 diabetes mellitus with diabetic neuropathy, unspecified; F25.0 Schizoaffective disorder, bipolar type; R00.0 Tachycardia, unspecified; F41.9 Anxiety disorder, unspecified; F32.9 Major depressive disorder, single episode, unspecified; E78.5 Hyperlipidemia, unspecified; F17.210 Nicotine dependence, cigarettes, uncomplicated; Z79.84 Long term (current) use of oral hypoglycemic drugs; F11.99 Opioid use, unspecified with unspecified opioid-induced disorder; Z79.899 Other long term (current) drug therapy; B35.1 Tinea unguium; L40.9 Psoriasis, unspecified; M94.0 Chondrocostal junction syndrome [Tietze]
CPT/HCPCS: 17999; 36415; 71045; 80053; 80164; 82948; 83690; 83880; 84484; 85025; 93005; 96372; 96374; 99283; G0378; J1650

== ENCOUNTER 2018-02-05 12:35 | Inpatient (IN) | payer MEDICAID, OTHER ==
[2018-02-05 12:36] VITALS: BMI 32.1
--- NOTE | 2018-02-05 13:52 | C.PDOC ---
History Of Present Illness 47 y/o male with history of HTN and DM presents to ED stating he feels depressed. " I want to hurt myself." Patient states he is non compliant with his chronic medications and admits to ETOH use. Denies chest pain, sob, fever, trauma, increased thirst or urination, history of withdrawal seizures or any other complaints at this time. Time Seen by Provider: 02/05/18 13:05 Chief Complaint (Nursing): Psychiatric Evaluation History Per: Patient History/Exam Limitations: no limitations Onset/Duration Of Symptoms: Days Current Symptoms Are (Timing): Still Present Suicide/Self Injury Attempted (Context): None Modifying Factor(s): None Past Medical History Reviewed: Historical Data, Nursing Documentation, Vital Signs Vital Signs: Last Vital Signs Temp 98.1 F 02/05/18 16:17 Pulse 90 02/05/18 16:17 Resp 20 02/05/18 16:17 BP 142/90 02/05/18 16:17 Pulse Ox 95 02/05/18 16:17 - Medical History PMH: Anxiety, Asthma (takes ventolin), Bipolar Disorder, Cardia Arrhythmia ( tachycardia), Depression, HTN (pt unsure of name of medication), Hyperlipidemia , Schizophrenia Surgical History: No Surg Hx - [facility] Procedures DETOXIFICATION SERVICES FOR SUBSTANCE ABUSE TREATMENT (11/07/17) GROUP PSYCHOTHERAPY (08/23/17) INDIV PSYCHOTHERAPY FOR SUBSTANCE ABUSE TREATMENT, SUPPORT (11/07/17) INDIVIDUAL PSYCHOTHERAPY, SUPPORTIVE (11/07/17) MEDICATION MANAGEMENT (11/07/17) MEDS MGMT FOR SUBSTANCE ABUSE TREATMENT, METHADONE MAINT (11/07/17) Family History: States: No Known Family Hx - Social History Hx Alcohol Use: No Hx Substance Use: Yes - Immunization History Hx Tetanus Toxoid Vaccination: No Hx Influenza Vaccination: No Hx Pneumococcal Vaccination: No Review Of Systems Constitutional: Negative for: Fever, Chills Cardiovascular: Negative for: Chest Pain Respiratory: Negative for: Shortness of Breath Skin: Negative for: Rash Neurological: Negative for: Weakness, Numbness Psych: Positive for: Suicidal ideation Physical Exam - Physical Exam Appears: Non-toxic, No Acute Distress Skin: Warm, Dry, No Pale Head: Atraumatic, Normacephalic Eye(s): bilateral: Normal Inspection, EOMI Nose: Normal Oral Mucosa: Moist Neck: Normal ROM, Supple Chest: Symmetrical Cardiovascular: Rhythm Regular Respiratory: Normal Breath Sounds, No Rales, No Rhonchi, No Wheezing Gastrointestinal/Abdominal: Soft, No Tenderness, No Guarding, No Rebound Extremity: Normal ROM, Capillary Refill (<2 seconds) Neurological/Psych: Oriented x3, Normal Speech, Normal Cognition ED Course And Treatment - Laboratory Results Result Diagrams: 02/05/18 13:44 02/05/18 13:44 O2 Sat by Pulse Oximetry: 95 (RA) Pulse Ox Interpretation: Normal Progress Note: 1:1 ordered. Pending crisis eval. Crisis evaluated patient and discussed case with Dr Judd, agreed upon admission for schizoaffective disorder. Pt is medically cleared for admission. Elevated LFTS noted , suggested outpt follow up with repeat labs. Also instructed restart chronic medication. Disposition - Disposition Disposition: HOSPITALIZED Disposition Time: 16:00 Condition: STABLE - Clinical Impression Clinical Impression: Schizoaffective disorder - PA / RIG MANAGER / Resident Statement MD/ has reviewed & agrees with the documentation as recorded. - Scribe Statement The provider has reviewed the documentation as recorded by the Lakisha Villarreal All medical record entries made by the Lakisha were at my direction and personally dictated by me. I have reviewed the chart and agree that the record accurately reflects my personal performance of the history, physical exam, medical decision making, and the department course for this patient. I have also personally directed, reviewed, and agree with the discharge instructions and disposition.
[2018-02-05 13:55] LABS: BASO # 0.1 K/uL (0.0-0.2); BASO % 1.5 % (0.0-2.0); EOS # 0.2 K/uL (0.0-0.7); EOS % 3.2 % (0.0-4.0); HEMOGLOBIN 12.9 g/dL (12.0-18.0); LYMPH # 1.8 K/uL (1.0-4.3); LYMPH % 27.8 % (20.0-40.0); MEAN CELL VOLUME 84.4 fL (80.0-94.0); MEAN CORPUSCULAR HEMOGLOBIN 28.9 pg (27.0-31.0); MEAN CORPUSCULAR HGB CONC 34.2 g/dL (33.0-37.0); MEAN PLATELET VOLUME 8.7 fL (7.2-11.7); MONO # 0.3 K/uL (0.0-0.8); MONO % 5.5 % (0.0-10.0); RBC 4.45 Mil/uL (4.40-5.90); RED CELL DISTRIBUTION WIDTH 14.1 % (11.5-14.5); WHITE BLOOD COUNT 6.4 K/uL (4.8-10.8)
[2018-02-05 13:57] LABS: SQUAMOUS EPITHIAL < 1 /hpf (0-5); URINE BILIRUBIN NEGATIVE (NEGATIVE); URINE BLOOD NEGATIVE (NEGATIVE); URINE CLARITY Clear (Clear); URINE COLOR Yellow (YELLOW); URINE GLUCOSE (UA) NORMAL (Normal); URINE LEUKOCYTE ESTERASE TRACE Leu/uL (Negative); URINE PROTEIN NEGATIVE (NEGATIVE); URINE UROBILINOGEN NORMAL mg/dL (0.2-1.0)
[2018-02-05 14:19] LABS: ALB/GLOB RATIO 1.1 (1.0-2.1); ALBUMIN 4.2 g/dL (3.5-5.0); ALT/SGPT 93 U/L (21-72); AST/SGOT 33 U/L (17-59); BLOOD UREA NITROGEN 11 mg/dL (9-20); CALCIUM 9.7 mg/dl (8.6-10.4); GFR AFRICAN-AMERICAN > 60; GFR NON-AFRICAN AMERICAN > 60
[2018-02-05 14:27] LABS: BARBITURATES, UR NEGATIVE (NEGATIVE); OPIATES, UR NEGATIVE (NEGATIVE); PHENCYCLIDINE, UR NEGATIVE (NEGATIVE)
[2018-02-05 14:32] LABS: BENZODIAZEPINES, UR POSITIVE (NEGATIVE)
--- NOTE | 2018-02-05 16:59 | PCM.BM ---
<Mimi Darnell - Last Filed: 02/05/18 16:56> Treatment Plan Problems - Problems identified on initial assessmt Problem 2 Date Initiated: 02/05/18 Time Initiated: 16:57 Assessment reference: NA Status: Active substance abuse Date Initiated: 02/05/18 Time Initiated: 16:58 Assessment reference: NA Status: Active Treatment assets and liabiliti Patient Assests: cooperative, self-reliant, ADL independent, physically healthy , good past tx response, cognitively intact Patient Liabilities: substance abuse - Milieu Protocol Maintain good personal hygiene: daily Encourage regular showers, daily Remind patient to perform daily oral care, daily Assist patient to perform ADL's Conduct patient checks and document Observation sheet: Q15 minutes Maintain personal safety: every shift Educate patient to report safety concerns to staff, every shift Monitor environment for contraband/sharps Medication safety: Monitor for expected outcome, potential side effects: every shift, Assess barriers to learning: every shift, Assess readiness for medication education: every shift <Vinayak Judd - Last Filed: 02/08/18 11:25> - Diagnosis (1) Schizoaffective disorder Status: Chronic Interventions: 02/08/18 11:25 * Assess/adjust medications daily and /or as needed * See patient on an individual basis 7x/week to assess status of hallucinations * Discuss risks, benefits, side effects and alternatives of medications * (2) Alcohol use disorder, severe, dependence Status: Acute Interventions: 02/08/18 11:26 * Assess 7x/week regarding severity of withdrawal * Educate regarding risks, benefits, side effects and alternatives of medications * Use Motivational Interviewing for abstinence * Use CBT for relapse prevention * Medication management for withdrawal symptoms * Encourage medication assisted treatment * <Elaine Pal - Last Filed: 02/08/18 17:15> Family Contact Family involvement: Patient does not wish Family/SO involvement Family contact: Patient declines to allow family contact at present - Goals for Treatment Patient goals for treatment: " I want to go to a rehab program."
--- NOTE | 2018-02-06 11:34 | PCM.PSYCH ---
Initial Psychiatric Evaluation - Initial Psychiatric Evaluation Type of Admission: Voluntary Legal Status: Capacity Chief Complaint (in patient's own words): "Tired" History of Present Illness and Precipitating Events: The pt is seen, chart reviewed and case discussed. Patient is a 47 y/o single male, who is homeless but he says different things to different people, ie "with girl friend" or "in [place]." Patient has no children and is unemployed on disability. Patient presented to ED with suicidal thoughts. Patient reports reports feeling depressed for weeks and suicidal for days. As before, he thought about jumping in front of a train or bus. Patient has had multiple psychiatric admissions at [facility]. Patient admits he has not been compliant with his medication, again, as before. After discharge he went back to [facility], his methadone clinic. He is on 90 mg/d Patient admits to using heroin on top of methadone. Patient drinks unspecified amount of alcohol too. Patient admits to xanax use on and off. He is vague and sleepy. Patient denies any other drug use. Patient smokes 1/2 pack of cigarettes /day. Patient wants to return to [facility] in [place]. Past psych hx: Admissions for depression Medical hx: HTN Family psych hx: Denied Current Medications: Active Medications Generic Name Dose Route Start Last Admin Trade Name Freq PRN Reason Stop Dose Admin Acetaminophen 650 mg 02/05/18 19:38 Tylenol 325mg Tab PO Q6 PRN Fever >100.4 F Benztropine Mesylate 2 mg 02/05/18 19:38 Cogentin PO Q6 PRN Extra Pyramidal Symptoms Diphenhydramine HCl 50 mg 02/05/18 19:38 Benadryl PO Q6 PRN Extra Pyramidal Symptoms Haloperidol 5 mg 02/05/18 19:38 02/05/18 20:13 Haldol PO 5 mg Q8 PRN Administration Moderate Agitation Lorazepam 1 mg 02/05/18 19:38 02/05/18 20:13 Ativan PO 1 mg Q6 PRN Administration Anxiety Metformin HCl 500 mg 02/06/18 10:00 Glucophage PO BID MIREYA Nicotine 1 patch 02/06/18 10:00 Nicoderm Cq TD DAILY MIREYA Trazodone HCl 50 mg 02/05/18 22:00 02/05/18 22:56 Desyrel PO 50 mg HS MIREYA Administration Past Psychiatric History - Past Psychiatric History Previous Treatment History: Inpatient Pertinent Medical Hx (Current Medical&Sleep Prob, Allergies): Allergies Allergy/AdvReac Type Severity Reaction Status Date / Time No Known Allergies Allergy Verified 02/05/18 12:45 No Known Home Med 02/05/18 Review of Systems - Neurological Neurological: UNREMARKABLE - Psychiatric Psychiatric: Abnormal Sleep Pattern, Anxiety, Auditory Hallucinations, Depression, Irritability. absent: Homicidal Ideation, Suicidal Ideation Mental Status Examination - Personal Presentation Personal Presentation: Looks older than stated age - Motor Activity Motor Activity: Calm - Reliability in Providing Information Reliability in Providing Information: Fair - Speech Speech: Organized - Mood Mood: Depressed - Formal Thought Process Formal Thought Process: Hallucinations - Cognitive Functions Orientation: Person, Place, Situation, Time Sensorium: Drowsy Attention/Concentration: Easily distracted Estimate of Intelligence: Average Judgement: Intact, as evidence by: Insight regarding need for hospitalization Memory: Recent intact, as evidence by: Ability to recall events of the day, Remote impaired as evidenced by: Inability to recall historical events - Risk Risk: Withdrawal, Diminished functioning - Strength & Assets Inventory Strength & Assets Inventory: Cooperative - Limitations Limitations: Other DSM 5 DX - DSM 5 DSM 5 Diagnosis: Major depression, recurrent, severe with psychotic sxs r/o schizoaffective disorder opioid use disorder - severe, on maintenance alcohol use disorder -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 diet, exercise, meditation Smoking cessation 34 min Projected ELOS: 4-5 days. He usually demands to leave Prognosis: Fair - Smoking Cessation Smoking Cessation Initiated: Yes
[2018-02-06] MEDS ORDERED: Albuterol HFA 90 mcg/actuation (8 g) INH PRN (11:35)
[2018-02-06] MEDS ORDERED: Methadone 40 mg Tab PO ONE (14:45)
[2018-02-07] MEDS ORDERED: Methadone 40 mg Tab PO ONE (14:15)
--- NOTE | 2018-02-08 08:59 | PCM.PYCHPN ---
Psychiatric Progress Note - Psychiatric Progress Note Patient seen today, length of contact: 15 MIN Patient Chief Complaint: ADRIÁN GOING THROUGH WITHDRAWAL Problems Identified/Issues Discussed: PT SEEN AND EXAMINED DISCUSSED WITH STAFF. PT IS IN [facility] AND STATES HE RECEIVES 90,MG A DAY OF METHADONE CASNNOT GET CONFIRMATION PT CHRIS, RECEIVE 40 MG METHADONE CLONIDINE AND VISTARIL TO HELPWITH DRAWAL SYMPTOMS Medical Problems: NOTHING ACUTE Diagnostic Results: REVIEWED DSM 5 Symptoms Update: ANHEDONIC AVOLITION AND ANHEDONIA Medication Change: Yes (VISTARIL CLONIDINE) Medical Record Reviewed: Yes Mental Status Examination - Cognitive Function Orientation: Person, Place, Situation, Time Memory: Intact Attention: Poor Concentration: Poor Association: WNL Fund of Knowledge: WNL - Mood Mood: Depressed - Affect Affect: Constricted, Depressed - Speech Speech: Appropriate - Formal Thought Process Formal Thought Process: Hallucinations - Suicidal Ideation Suicidal Ideation: No - Homicidal Ideation Homicidal Ideation: No Goal/Treatment Plan - Goal/Treatment Plan Need for Continued Stay: Severe depression anxiety, Discharge may exacerbated symptoms Progress Toward Problem(s) and Goals/Treatment Plan: MAJOR DEPRESSIVE DISORDER R/O SCHIZOAFFECTIVE DISORDERE EXPLORE ANTIDEPRESSIVES ONE CAN USE WITH METHADONE OPIATE USE DISORDER MTTP ALCOHOL USE DISORDER NC CBT SUPPRTIVE PSYCHOTHERAPY GROUPMILIEU AND RECREATIONAL THERAPY Estimated Date of D/C: 02/18/18 - Smoking Cessation Smoking Cessation Initiated: Yes
[2018-02-08] MEDS: Methadone 40 mg Tab PO SCH (10:29)
--- NOTE | 2018-02-08 11:24 | PCM.PYCHPN ---
Psychiatric Progress Note - Psychiatric Progress Note Patient seen today, length of contact: 15 MIN Patient Chief Complaint: i am feeling little better. Problems Identified/Issues Discussed: Patient seen and evaluated, chart reviewed and discussed with the nurse. Patient reports improvement in his mood and reports improvement in the paranoid symptoms. Patient reports improvement in the withdrawal symptoms. He remained calm and cooperative. Patient is compliant with medications and denies any side effects. Symptoms are improving but need more time to stabilize. Support and psychoeducation given. Medication Change: Yes (VISTARIL CLONIDINE) Medical Record Reviewed: Yes Mental Status Examination - Cognitive Function Orientation: Person, Place, Situation, Time Memory: Intact Attention: Poor Concentration: Poor Association: WNL Fund of Knowledge: WNL - Mood Mood: Depressed - Affect Affect: Constricted, Depressed - Speech Speech: Appropriate - Formal Thought Process Formal Thought Process: Hallucinations - Suicidal Ideation Suicidal Ideation: No - Homicidal Ideation Homicidal Ideation: No Goal/Treatment Plan - Goal/Treatment Plan Need for Continued Stay: Severe depression anxiety, Discharge may exacerbated symptoms Estimated Date of D/C: 02/18/18
[2018-02-09 06:47] VITALS: O2SAT 100
[2018-02-09] MEDS: Methadone 40 mg Tab PO SCH (09:49)
--- NOTE | 2018-02-09 10:57 | PCM.PYCHPN ---
Psychiatric Progress Note - Psychiatric Progress Note Patient seen today, length of contact: 15 MIN Patient Chief Complaint: "I need to get clean" Problems Identified/Issues Discussed: Patient seen and evaluated, chart reviewed and discussed with the nurse. Patient reports improvement in his mood and reports improvement in the paranoid symptoms. Patient reports improvement in the withdrawal symptoms. He remained calm and cooperative. Patient is compliant with medications and denies any side effects. Symptoms are improving but need more time to stabilize. Support and psychoeducation given. Medication Change: Yes (VISTARIL CLONIDINE) Medical Record Reviewed: Yes Mental Status Examination - Cognitive Function Orientation: Person, Place, Situation, Time Memory: Intact Attention: WNL Concentration: Poor Association: WNL Fund of Knowledge: WNL - Mood Mood: Depressed - Affect Affect: Constricted, Depressed - Speech Speech: Appropriate - Formal Thought Process Formal Thought Process: No Impairment - Suicidal Ideation Suicidal Ideation: No - Homicidal Ideation Homicidal Ideation: No Goal/Treatment Plan - Goal/Treatment Plan Need for Continued Stay: Severe depression anxiety, Discharge may exacerbated symptoms Progress Toward Problem(s) and Goals/Treatment Plan: Major depression, recurrent, severe with psychotic sxs r/o schizoaffective disorder opioid use disorder - severe, on maintenance 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 diet, exercise, meditation Smoking cessation Estimated Date of D/C: 02/18/18 - Smoking Cessation Smoking Cessation Initiated: No
[2018-02-10 05:59] VITALS: BP 133/87; PULSE 79; RESP 19; TEMP 98
[2018-02-10] MEDS: Methadone 40 mg Tab PO SCH (09:33)
--- NOTE | 2018-02-10 10:30 | PCM.PYCHDC ---
Mental Status Examination - Mental Status Examination Orientation: Person, Place, Situation, Time Memory: Intact Mood: Neutral Affect: Constricted Speech: Soft Attention: WNL Concentration: WNL Association: WNL Fund of Knowledge: WNL Formal Thought Process: No Impairment Description of patient's judgement and insight: good, fair Psychotic Thoughts and Behaviors: denies any AVH Suicidal Ideation: No Current Homicidal Ideation?: No Discharge Summary - Discharge Note Reason for Hospitalization: The pt is seen, chart reviewed and case discussed. Patient is a 47 y/o single male, who is homeless but he says different things to different people, ie "with girl friend" or "in [place]." Patient has no children and is unemployed on disability. Patient presented to ED with suicidal thoughts. Patient reports reports feeling depressed for weeks and suicidal for days. As before, he thought about jumping in front of a train or bus. Patient has had multiple psychiatric admissions at [facility]. Patient admits he has not been compliant with his medication, again, as before. After discharge he went back to [facility], his methadone clinic. He is on 90 mg/d Patient admits to using heroin on top of methadone. Patient drinks unspecified amount of alcohol too. Patient admits to xanax use on and off. He is vague and sleepy. Patient denies any other drug use. Patient smokes 1/2 pack of cigarettes /day. Patient wants to return to [facility] in [place]. Past psych hx: Admissions for depression Laboratory Data: Abnormal Lab Results 02/10/18 07:35 POC Glucose (mg/dL) 134 H Consultations:: List each consultation separately and include: 1. Reason for request. 2. Findings. 3. Follow-up Summary of Hospital Course include:: 1. Description of specific treatment plan utilized for patients during their course of treatmen. 2. Summarize the time- course for resolution of acute symptoms and/or regressed behaviors. 3. Describe issues identified and worked on during hospitalization. 4. Describe medication utilized. 5. Describe medical problems identified and treated. 6. Reassessment of suicide risk Summary of Hospital Course: During the course of his stay, patient (pt) started progressively improving and he no longer remained irritable, depressed, and suicidal. His mood and anxiety symptoms were improved and he started attending groups and meetings and started socializing. Patient denied any feelings of hopelessness, helplessness, and worthlessness, denied any problem with the sleep or appetite, denied suicidal ideation or homicidal ideation. Pt denied any auditory or visual hallucinations. He denied any withdrawal symptoms. Some changes were made in his current medications and patient was discharged on following medications. He tolerated these medications very well and denied any side effects. He was discharged to the [facility]. 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 Pt was educated and counseled about the risks of drinking and abusing drugs. Pt was educated and counseled to go to the ER or call 911 if pt develop suicidal ideation or homicidal ideation, worsening of symptoms or severe side effects of the meds. Prescriptions/Medication Reconciliation: ARIPiprazole [Abilify] 10 mg PO QPM #30 tab hydrOXYzine HCl [Atarax] 25 mg PO BID PRN #60 tab PRN Reason: Anxiety metFORMIN [glucOPHAGE] 500 mg PO BID #60 tab traZODone [Desyrel] 100 mg PO HS #30 tab - Smoking Cessation Smoking Cessation Medication prescribed: No - Antipsychotic Medications Pt discharged on 2 or more routine antipsychotic medications: No
== END 2018-02-10 11:31 | disposition home or self-care (01) | DRG 430 ==
LOC: C.ER 12:35 → C.5E 15:51
PROVIDERS: ADMIT Psychiatry & Neurology Psychiatry; ATTEND Psychiatry & Neurology Psychiatry
PROC: GZHZZZZ Group Psychotherapy (ICD-10-PCS; principal; 2018-02-05)
PROC: HZ2ZZZZ Detoxification Services for Substance Abuse Treatment (ICD-10-PCS; 2018-02-05)
PROC: HZ52ZZZ Individual Psychotherapy for Substance Abuse Treatment, Cognitive-Behavioral (ICD-10-PCS; 2018-02-05)
PROC: HZ59ZZZ Individual Psychotherapy for Substance Abuse Treatment, Supportive (ICD-10-PCS; 2018-02-05)
PROC: HZ56ZZZ Individual Psychotherapy for Substance Abuse Treatment, Psychoeducation (ICD-10-PCS; 2018-02-05)
PROC: HZ42ZZZ Group Counseling for Substance Abuse Treatment, Cognitive-Behavioral (ICD-10-PCS; 2018-02-05)
PROC: HZ46ZZZ Group Counseling for Substance Abuse Treatment, Psychoeducation (ICD-10-PCS; 2018-02-05)
PROC: GZ58ZZZ Individual Psychotherapy, Cognitive-Behavioral (ICD-10-PCS; 2018-02-05)
PROC: GZ56ZZZ Individual Psychotherapy, Supportive (ICD-10-PCS; 2018-02-05)
DX: F25.9 Schizoaffective disorder, unspecified (principal); F11.20 Opioid dependence, uncomplicated; F13.20 Sedative, hypnotic or anxiolytic dependence, uncomplicated; F33.3 Major depressive disorder, recurrent, severe with psychotic symptoms; F17.210 Nicotine dependence, cigarettes, uncomplicated; R45.84 Anhedonia; E11.9 Type 2 diabetes mellitus without complications; F10.20 Alcohol dependence, uncomplicated; I10 Essential (primary) hypertension; J45.909 Unspecified asthma, uncomplicated; R45.851 Suicidal ideations; Z59.0 Homelessness

== ENCOUNTER 2018-04-03 09:15 | Inpatient (IN) | payer MEDICAID ==
[2018-04-03 09:15] VITALS: BMI 32.1
--- NOTE | 2018-04-03 09:50 | C.PDOC ---
History Of Present Illness 48 y/o male, whose PMH includes anxiety, asthma, bipolar disorder, arrhythmia, depression, HTN, and schizophrenia, who presents to the emergency department complaining of having auditory hallucinations and suicidal ideation since 5 days ago. Patient reports he cannot sleep and also notes not taking any medication for his HTN or DM. Patient denies chest pain, shortness of breath, headache, fever, chills, cough, nausea, vomiting, diarrhea, abdominal pain, dizziness or homicidal ideation. Time Seen by Provider: 04/03/18 09:35 Chief Complaint (Nursing): Psychiatric Evaluation History Per: Patient History/Exam Limitations: no limitations Onset/Duration Of Symptoms: Days Current Symptoms Are (Timing): Still Present Suicide/Self Injury Attempted (Context): None Modifying Factor(s): None Severity: None Associated Symptoms: Suicidal Thoughts Involuntary Hold By: None Recent travel outside of the [place]: No Past Medical History Reviewed: Historical Data, Nursing Documentation, Vital Signs Vital Signs: Last Vital Signs Temp 98.0 F 04/03/18 18:22 Pulse 85 04/03/18 18:22 Resp 18 04/03/18 18:22 BP 134/90 04/03/18 18:22 Pulse Ox 97 04/03/18 18:28 - Medical History PMH: Anxiety, Asthma (takes ventolin), Bipolar Disorder, Cardia Arrhythmia ( tachycardia), Depression, HTN (pt unsure of name of medication), Hyperlipidemia , Schizophrenia Denies: Arthritis, COPD, Diabetes, Hepatitis, HIV, Chronic Kidney Disease, Seizures, Sexually Transmitted Disease - [facility] Procedures DETOXIFICATION SERVICES FOR SUBSTANCE ABUSE TREATMENT (02/05/18) GROUP BAG ADJUSTER FOR SUBSTANCE ABUSE TREATMENT, PSYCHOEDUCATION (02/05/18) GROUP BAG ADJUSTER FOR SUBSTANCE ABUSE, COGNITIVE BEHAVIORAL (02/05/18) GROUP PSYCHOTHERAPY (02/05/18) INDIV PSYCHOTHERAPY FOR SUBSTANCE ABUSE TREATMENT, SUPPORT (02/05/18) INDIV PSYCHOTHERAPY FOR SUBSTANCE ABUSE, COGNITIV BEHAVIORAL (02/05/18) INDIV PSYCHOTHERAPY FOR SUBSTANCE ABUSE, PSYCHOEDUCATION (02/05/18) INDIVIDUAL PSYCHOTHERAPY, COGNITIVE-BEHAVIORAL (02/05/18) INDIVIDUAL PSYCHOTHERAPY, SUPPORTIVE (02/05/18) MEDICATION MANAGEMENT (11/07/17) MEDS MGMT FOR SUBSTANCE ABUSE TREATMENT, METHADONE MAINT (11/07/17) Family History: States: Unknown Family Hx - Social History Hx Alcohol Use: Yes Hx Substance Use: No (PT DENIES) - Immunization History Hx Tetanus Toxoid Vaccination: No Hx Influenza Vaccination: No Hx Pneumococcal Vaccination: No Review Of Systems Constitutional: Negative for: Fever Cardiovascular: Negative for: Chest Pain, Palpitations Respiratory: Negative for: Shortness of Breath Gastrointestinal: Negative for: Vomiting, Abdominal Pain Genitourinary: Negative for: Dysuria Skin: Negative for: Rash Neurological: Negative for: Headache, Dizziness Psych: Positive for: Suicidal ideation, Other (auditory hallucinations and lack of sleep) Physical Exam - Physical Exam Appears: Well, Non-toxic, Agitated (pacing back and forth) Skin: Normal Color, Warm, Dry Head: Atraumatic, Normacephalic Eye(s): bilateral: Normal Inspection, PERRL, EOMI Cardiovascular: Rhythm Regular, No Murmur Respiratory: Normal Breath Sounds, No Decreased Breath Sounds, No Rales, No Rhonchi, No Wheezing Gastrointestinal/Abdominal: Normal Exam, Bowel Sounds (active), Soft, No Tenderness, No Distention, No Guarding, No Rebound Extremity: Normal ROM Neurological/Psych: Oriented x3, Normal Speech, Normal Sensation ED Course And Treatment - Laboratory Results Result Diagrams: 04/03/18 10:14 04/03/18 10:14 O2 Sat by Pulse Oximetry: 97 (room air ) Pulse Ox Interpretation: Normal Medical Decision Making Medical Decision Making: Impression: 48 y/o male with agitation c/o auditory hallucination, suicidal ideation, and lack of sleep since 5 days. Plan: -- Labs -- Ativan, Catapres, Insulin, Glucophage, and sodium chloride -- Urinalysis -- Reassess and disposition Progress Notes: Case was discussed with petroleum refinery worker who discussed it with Dr. Torres, who will admit patient with a medical consult for DM and HTN. Disposition Counseled Patient/Family Regarding: Studies Performed, Diagnosis - Disposition Disposition: HOSPITALIZED Disposition Time: 11:47 Condition: STABLE - Clinical Impression Clinical Impression: HTN (hypertension), Schizoaffective disorder, Diabetes mellitus - Scribe Statement The provider has reviewed the documentation as recorded by the Scribe Scribe Attestation: Anaya Ponce MD Scribe Attestation: All medical record entries made by the Scribe were at my direction and personally dictated by me. I have reviewed the chart and agree that the record accurately reflects my personal performance of the history, physical exam, medical decision making, and the department course for this patient. I have also personally directed, reviewed, and agree with the discharge instructions and disposition. Decision To Admit - Pt Status Changed To: Hospital Disposition Of: Inpatient - Admit Certification Admit to Inpatient:: After my assessment, the patient will require hospitalization for at least two midnights. This is because of the severity of symptoms shown, intensity of services needed, and/or the medical risk in this patient being treated as an outpatient. - InPatient: Physician Admission Certification: I certify that this patient requires 2 or more midnights of care for the following reason:: schizoaffective disorder, dm, htn - . Bed Request Type: Psychiatry Admitting Physician: Marlon Guajardo Patient Diagnosis: HTN (hypertension), Schizoaffective disorder, Diabetes mellitus
[2018-04-03 10:18] LABS: BASO # 0.1 K/uL (0.0-0.2); BASO % 0.8 % (0.0-2.0); HEMOGLOBIN 13.9 g/dL (12.0-18.0); LYMPH # 1.3 K/uL (1.0-4.3); LYMPH % 10.6 % (20.0-40.0); MEAN CELL VOLUME 83.7 fL (80.0-94.0); MEAN CORPUSCULAR HEMOGLOBIN 28.6 pg (27.0-31.0); MEAN CORPUSCULAR HGB CONC 34.2 g/dL (33.0-37.0); MONO # 0.5 K/uL (0.0-0.8); MONO % 3.9 % (0.0-10.0); NEUT # 10.2 K/uL (1.8-7.0); NEUT % 84.7 % (50.0-75.0); RBC 4.88 Mil/uL (4.40-5.90); RED CELL DISTRIBUTION WIDTH 14.5 % (11.5-14.5)
[2018-04-03 10:19] LABS: WHITE BLOOD COUNT 12.1 K/uL (4.8-10.8)
[2018-04-03 10:22] LABS: URINE BACTERIA OCC (<OCC); URINE BILIRUBIN NEGATIVE (NEGATIVE); URINE BLOOD NEGATIVE (NEGATIVE); URINE CLARITY Clear (Clear); URINE COLOR Yellow (YELLOW); URINE GLUCOSE (UA) 3+ mg/dL (Normal); URINE LEUKOCYTE ESTERASE NEG Leu/uL (Negative); URINE PROTEIN 2+ mg/dL (NEGATIVE); URINE UROBILINOGEN NORMAL mg/dL (0.2-1.0)
[2018-04-03 10:31] LABS: ALB/GLOB RATIO 1.3 (1.0-2.1); ALT/SGPT 46 U/L (21-72); AST/SGOT 45 U/L (17-59); BLOOD UREA NITROGEN 20 mg/dL (9-20); GFR AFRICAN-AMERICAN > 60; GFR NON-AFRICAN AMERICAN > 60
[2018-04-03] MEDS ORDERED: Sodium Chloride 0.9% 1,000 ML IV ONE ×2 (10:34→13:02)
[2018-04-03 10:36] LABS: ACETAMINOPHEN < 10.0 ug/mL (10.0-30.0); SALICYLATE < 1.0 mg/dL 1
[2018-04-03 10:42] LABS: BARBITURATES, UR NEGATIVE (NEGATIVE); OPIATES, UR NEGATIVE (NEGATIVE); PHENCYCLIDINE, UR NEGATIVE (NEGATIVE)
[2018-04-03 10:43] LABS: BENZODIAZEPINES, UR POSITIVE (NEGATIVE)
[2018-04-03] MEDS ORDERED: Sodium Chloride 0.9% 1,000 ML ONE (10:52)
[2018-04-03] MEDS ORDERED: (Novolin R) Insulin Human Regular 100 units/ml vial SC STA (10:56)
[2018-04-03] MEDS ORDERED: (Novolin R) Insulin Human Regular 100 units/ml vial ONE (11:33)
[2018-04-03] MEDS ORDERED: (Novolin R) Insulin Human Regular 100 units/ml vial SC ONE (13:01)
--- NOTE | 2018-04-03 16:17 | PCM.BM ---
<Tyra Cook - Last Filed: 04/03/18 16:14> Treatment Plan Problems - Problems identified on initial assessmt Suicidal ideations Date Initiated: 04/03/18 Time Initiated: 16:20 Assessment reference: NA Status: Active Treatment assets and liabiliti Patient Assests: cooperative, self-reliant, ADL independent, physically healthy , good past tx response, cognitively intact Patient Liabilities: live alone, financial problems, medical problems - Milieu Protocol Maintain good personal hygiene: daily Encourage regular showers, daily Remind patient to perform daily oral care, daily Assist patient to perform ADL's Maintain personal safety: every shift Educate patient to report safety concerns to staff, every shift Monitor environment for contraband/sharps Medication safety: Monitor for expected outcome, potential side effects: every shift, Assess barriers to learning: every shift, Assess readiness for medication education: every shift <Elaine Pal - Last Filed: 04/05/18 11:10> Family Contact Family involvement: Patient does not wish Family/SO involvement Family contact: Patient declines to allow family contact at present - Goals for Treatment Patient goals for treatment: "I want to return to [facility] outpatient program in [place]." Discharge/Continuing Care - Education Needs Education Needs: Patient Medication, Patient Diagnosis/Disease Process, Patient Coping Skills, Patient Placement options, Patient Community resources - Discharge Discharge Criteria: Free of Suicidal thoughts, Normal sleep pattern, Ability to care for self, No longer exhibiting s/s of withdrawal, Reduction of target symptoms Discharge to:: Home - Treatment Team Participation Discussed with Family/SO: No Was Patient/Family/SO present at Treatment Team Meeting: Yes
[2018-04-04] MEDS ORDERED: Methadone 40 mg Tab PO ONE (14:00)
--- NOTE | 2018-04-04 20:40 | PCM.PSYCH ---
Initial Psychiatric Evaluation - Initial Psychiatric Evaluation Type of Admission: Voluntary Legal Status: Capacity Chief Complaint (in patient's own words): I was depressed and was hearing voices. History of Present Illness and Precipitating Events: Patient is a 47 years old, single, unemployed, on SSDI, -[place] male with history of schizoaffective disorder, alcohol use disorder and opiate use disorder was admitted due to worsening depression and auditory hallucinations secondary to noncompliance with treatment after discharge from the hospital. Patient reported started feeling depressed with decreased sleep and appetite, hopelessness helplessness, with suicidal ideations with plan to jump in front of train. Denied any homicidal ideations. Reported history of once previous suicidal attempts 20 years ago by overdose on medication and was admitted in the hospital. Also reported hearing voices, telling him to kill himself, last heard yesterday. Also reported feeling at times that people are after him. He has history of about 12 inpatient psychiatric admissions. Patient did not see any psychiatrist outside. Alcohol: Reported started drinking alcohol about 15 years ago and recently, large amount. Reported he was drinking 3 pints of vodka daily and his last drink was 3 days ago. His urine drug screen was negative for alcohol. It was positive for benzos. Patient reported using about 3 sticks of Xanax for last 1 year and last use reported 3 days ago. Patient is also on methadone because of opiate use. Currently he is taking methadone 90 mg daily. Reported he smokes one pack of cigarettes daily requesting for nicotine patch. Patient was born in [place], not working, on SSDI. Lives alone. Never and has no children. His height is 5 feet 2 inches and weight is 160 pounds. Current Medications: Active Medications Generic Name Dose Route Start Last Admin Trade Name Freq PRN Reason Stop Dose Admin Amlodipine Besylate 10 mg 04/04/18 16:00 04/04/18 16:32 Norvasc PO 10 mg DAILY MIREYA Administration Aripiprazole 10 mg 04/04/18 10:00 04/04/18 09:15 Abilify PO 10 mg DAILY MIREYA Administration Hydroxyzine HCl 25 mg 04/03/18 18:02 04/04/18 20:23 Atarax PO 25 mg Q6 PRN Administration Anxiety Ibuprofen 400 mg 04/03/18 19:19 Motrin Tab PO Q6H PRN Pain, moderate (4-7) Metformin HCl 500 mg 04/03/18 19:30 04/04/18 17:20 Glucophage PO 500 mg BID MIREYA Administration Pneumococcal Polyvalent Vaccine 0.5 ml 04/06/18 10:00 Pneumovax 23 Vaccine IM 04/06/18 10:01 .ONCE ONE Trazodone HCl 50 mg 04/03/18 22:00 04/03/18 21:24 Desyrel PO 50 mg HS MIREYA Administration Diabetes mellitus Hypertension Past Psychiatric History - Past Psychiatric History Previous Treatment History: Inpatient [facility]: Mostly at [facility] History of Abuse: None reported History of ETOH/Drug Use: See HPI History of Family Illness: None reported Pertinent Medical Hx (Current Medical&Sleep Prob, Allergies): Allergies Allergy/AdvReac Type Severity Reaction Status Date / Time No Known Allergies Allergy Verified 04/03/18 09:20 metFORMIN [glucOPHAGE] 500 mg PO BID #60 tab 02/10/18 Januvia 1 tab PO DAILY 04/03/18 Review of Systems - Psychiatric Psychiatric: As Per HPI, Depression, Paranoia Mental Status Examination - Personal Presentation Personal Presentation: Looks stated age - Affect Affect: Depressed - Motor Activity Motor Activity: Calm - Reliability in Providing Information Reliability in Providing Information: Fair - Speech Speech: Relevant - Mood Mood: Depressed - Formal Thought Process Formal Thought Process: Hallucinations - Hallucinations/Delusions Hallucinations: Other (None reported at the time of evaluation) Delusions: Other - Obsessions/Compulsions Obsessions: None Compulsions: None - Cognitive Functions Orientation: Person, Place, Situation, Time Sensorium: Alert Attention/Concentration: Attentive Abstract Thinking: Mayo Estimate of Intelligence: Average Judgement: Intact, as evidence by: Insight regarding need for hospitalization Memory: Recent intact, as evidence by: Ability to recall events of the day, Remote intact, as evidenced by: Ability to recall historical events - Risk Risk: Withdrawal, Diminished functioning - Strength & Assets Inventory Strength & Assets Inventory: Cooperative - Limitations Limitations: Living alone DSM 5 DX - DSM 5 DSM 5 Diagnosis: Schizoaffective disorder depressive type Alcohol use disorder severe Anxiolytics use disorder severe Opiate use disorder severe on agonist therapy - Recommended/Plan of Treatment Treatment Recommendations and Plan of Treatment: Patient education. Supportive therapy. CBT for relapse prevention. [place] for abstinence. We will start Librium when necessary for alcohol in anxiolytics withdrawal symptoms We'll start his discharge medications. Other when necessary medications. Will call his methadone maintenance program in the morning and Will confirm the dose. Projected ELOS: 8-10 days - Smoking Cessation Smoking Cessation Initiated: Yes
--- NOTE | 2018-04-05 10:26 | PCM.PYCHPN ---
Psychiatric Progress Note - Psychiatric Progress Note Patient seen today, length of contact: 15 min Patient Chief Complaint: I am feeling depressed Problems Identified/Issues Discussed: Patient seen and evaluated, chart reviewed and discussed with the nurse. Patient appears more organized and less paranoid and less delusional. Patient remained isolated, confined and withdrawn. Patient still appears mildly paranoid and delusional. Patient reports withdrawal symptoms including nausea, headaches, cramps and sweating. He reports improvement in his mood and improvement in the feelings of hopelessness and helplessness. Patient is compliant with medications and denies any side effects. Symptoms are improving but need more time to stabilize. Support and psychoeducation given. Medication Change: Yes Medical Record Reviewed: Yes Mental Status Examination - Cognitive Function Orientation: Person, Place, Situation, Time Memory: Intact Attention: WNL Concentration: Poor Association: Loose Fund of Knowledge: Poor - Mood Mood: Depressed - Affect Affect: Depressed - Speech Speech: Soft - Formal Thought Process Formal Thought Process: Hallucinations, Loosening of associations - Suicidal Ideation Suicidal Ideation: No - Homicidal Ideation Homicidal Ideation: No Goal/Treatment Plan - Goal/Treatment Plan Need for Continued Stay: Severe depression anxiety, Severe functional impairment Progress Toward Problem(s) and Goals/Treatment Plan: Schizoaffective disorder depressive type Alcohol use disorder severe Anxiolytics use disorder severe Opiate use disorder severe on agonist therapy Patient education. Supportive therapy. CBT for relapse prevention. [place] for abstinence. We will start Librium when necessary for alcohol in anxiolytics withdrawal symptoms We'll start his discharge medications. Other when necessary medications. Will call his methadone maintenance program in the morning and Will confirm the dose. - Smoking Cessation Smoking Cessation Initiated: No
[2018-04-06 06:54] VITALS: O2SAT 100
[2018-04-06] MEDS ORDERED: Pneumococcal 23-Valent Vaccine IM ONE (10:00)
--- NOTE | 2018-04-07 13:50 | PCM.PYCHPN ---
Psychiatric Progress Note - Psychiatric Progress Note Patient seen today, length of contact: 16 min Patient Chief Complaint: I am feeling less depressed Problems Identified/Issues Discussed: Patient seen and evaluated, chart reviewed and discussed with the nurse. Patient remained isolated, confined and withdrawn. Patient appears more organized and less paranoid and less delusional. Patient reports improvement in the withdrawal symptoms. He reports improvement in his mood. Patient is compliant with medications and denies any side effects. Symptoms are improving but need more time to stabilize. Support and psychoeducation given. Medication Change: Yes Medical Record Reviewed: Yes Mental Status Examination - Cognitive Function Orientation: Person, Place, Situation, Time Memory: Intact Attention: WNL Concentration: Poor Association: WNL Fund of Knowledge: Poor - Mood Mood: Depressed - Affect Affect: Depressed - Speech Speech: Soft - Formal Thought Process Formal Thought Process: Hallucinations - Suicidal Ideation Suicidal Ideation: No - Homicidal Ideation Homicidal Ideation: No Goal/Treatment Plan - Goal/Treatment Plan Need for Continued Stay: Severe depression anxiety, Severe functional impairment Progress Toward Problem(s) and Goals/Treatment Plan: Schizoaffective disorder depressive type Alcohol use disorder severe Anxiolytics use disorder severe Opiate use disorder severe on agonist therapy Patient education. Supportive therapy. CBT for relapse prevention. [place] for abstinence. We will start Librium when necessary for alcohol in anxiolytics withdrawal symptoms We'll start his discharge medications. Other when necessary medications. Will call his methadone maintenance program in the morning and Will confirm the dose.
[2018-04-07 15:34] VITALS: PULSE 83
[2018-04-08 06:51] VITALS: BP 114/80; RESP 20; TEMP 97.6
--- NOTE | 2018-04-08 10:28 | PCM.PYCHPN ---
Psychiatric Progress Note - Psychiatric Progress Note Patient seen today, length of contact: 15 min Patient Chief Complaint: much better Problems Identified/Issues Discussed: Patient seen and evaluated, chart reviewed and discussed with the nurse. Patient appears more organized and less paranoid. Patient reports improvement in his mood and improvement in the withdrawal symptoms. Patient is compliant with medications and denies any side effects. Symptoms are improving but need more time to stabilize. Support and psychoeducation given. Medication Change: Yes Medical Record Reviewed: Yes Mental Status Examination - Cognitive Function Orientation: Person, Place, Situation, Time Memory: Intact Attention: WNL Concentration: Poor Association: WNL Fund of Knowledge: Poor - Mood Mood: Depressed - Affect Affect: Depressed - Speech Speech: Soft - Formal Thought Process Formal Thought Process: No Impairment - Suicidal Ideation Suicidal Ideation: No - Homicidal Ideation Homicidal Ideation: No Goal/Treatment Plan - Goal/Treatment Plan Need for Continued Stay: Severe depression anxiety, Severe functional impairment Progress Toward Problem(s) and Goals/Treatment Plan: Schizoaffective disorder depressive type Alcohol use disorder severe Anxiolytics use disorder severe Opiate use disorder severe on agonist therapy Patient education. Supportive therapy. CBT for relapse prevention. [place] for abstinence. We will start Librium when necessary for alcohol in anxiolytics withdrawal symptoms We'll start his discharge medications. Other when necessary medications. Will call his methadone maintenance program in the morning and Will confirm the dose.
--- NOTE | 2018-04-08 10:31 | PCM.PYCHDC ---
Mental Status Examination - Mental Status Examination Orientation: Person, Place, Situation, Time Memory: Intact Mood: Neutral Affect: Constricted Speech: Soft Attention: WNL Concentration: WNL Association: WNL Fund of Knowledge: WNL Formal Thought Process: No Impairment Description of patient's judgement and insight: good, fair Psychotic Thoughts and Behaviors: denies any AVH Suicidal Ideation: No Current Homicidal Ideation?: No Discharge Summary - Discharge Note Reason for Hospitalization: Patient is a 47 years old, single, unemployed, on SSDI, -[place] male with history of schizoaffective disorder, alcohol use disorder and opiate use disorder was admitted due to worsening depression and auditory hallucinations secondary to noncompliance with treatment after discharge from the hospital. Patient reported started feeling depressed with decreased sleep and appetite, hopelessness helplessness, with suicidal ideations with plan to jump in front of train. Denied any homicidal ideations. Reported history of once previous suicidal attempts 20 years ago by overdose on medication and was admitted in the hospital. Also reported hearing voices, telling him to kill himself, last heard yesterday. Also reported feeling at times that people are after him. He has history of about 12 inpatient psychiatric admissions. Patient did not see any psychiatrist outside. Alcohol: Reported started drinking alcohol about 15 years ago and recently, large amount. Reported he was drinking 3 pints of vodka daily and his last drink was 3 days ago. His urine drug screen was negative for alcohol. It was positive for benzos. Patient reported using about 3 sticks of Xanax for last 1 year and last use reported 3 days ago. Patient is also on methadone because of opiate use. Currently he is taking methadone 90 mg daily. Reported he smokes one pack of cigarettes daily requesting for nicotine patch. Laboratory Data: Abnormal Lab Results 04/07/18 04/08/18 16:19 07:37 POC Glucose (mg/dL) 205 H 223 H Consultations:: List each consultation separately and include: 1. Reason for request. 2. Findings. 3. Follow-up Summary of Hospital Course include:: 1. Description of specific treatment plan utilized for patients during their course of treatmen. 2. Summarize the time- course for resolution of acute symptoms and/or regressed behaviors. 3. Describe issues identified and worked on during hospitalization. 4. Describe medication utilized. 5. Describe medical problems identified and treated. 6. Reassessment of suicide risk Summary of Hospital Course: During the course of his stay, patient (pt) started progressively improving and he no longer remained irritable, depressed, and suicidal. His mood and anxiety symptoms were improved and he started attending groups and meetings and started socializing. Patient denied any feelings of hopelessness, helplessness, and worthlessness, denied any problem with the sleep or appetite, denied suicidal ideation or homicidal ideation. Pt denied any auditory or visual hallucinations. He denied any withdrawal symptoms. Some changes were made in his current medications and patient was discharged on following medications. He tolerated these medications very well and denied any side effects. Pt is to return to methadone maintenance treatment at [facility]. - Final Diagnosis (DSM 5) Condition upon Discharge: STABLE DSM 5: Schizoaffective disorder depressive type Alcohol use disorder severe Anxiolytics use disorder severe Opiate use disorder severe on agonist therapy Disposition: HOME/ ROUTINE Follow-up Treatment Plan: Education: Pt was educated and counseled about the risks and benefits of taking and not taking medications. Pt was educated and counseled about the risks of drinking and abusing drugs. Pt was educated and counseled to go to the ER or call 911 if pt develop suicidal ideation or homicidal ideation, worsening of symptoms or severe side effects of the meds. Prescriptions/Medication Reconciliation: amLODIPine [Norvasc] 10 mg PO DAILY #30 tab ARIPiprazole [Abilify] 10 mg PO DAILY #30 tab metFORMIN [glucOPHAGE] 500 mg PO BID #60 tab traZODone [Desyrel] 50 mg PO HS #30 tab - Smoking Cessation Smoking Cessation Medication prescribed: No - Antipsychotic Medications Pt discharged on 2 or more routine antipsychotic medications: No
== END 2018-04-08 11:55 | disposition home or self-care (01) | DRG 430 ==
LOC: C.ER 09:15 → C.5E 11:43
PROC: GZHZZZZ Group Psychotherapy (ICD-10-PCS; principal; 2018-04-03)
DX: F25.1 Schizoaffective disorder, depressive type (principal); F11.20 Opioid dependence, uncomplicated; I10 Essential (primary) hypertension; J45.909 Unspecified asthma, uncomplicated; R45.851 Suicidal ideations; F17.210 Nicotine dependence, cigarettes, uncomplicated; E11.9 Type 2 diabetes mellitus without complications; F19.10 Other psychoactive substance abuse, uncomplicated

== ENCOUNTER 2018-05-10 20:12 | Inpatient (IN) | payer MEDICAID ==
[2018-05-10 20:12] VITALS: BMI 32.1
[2018-05-10 21:41] LABS: BASO # 0.1 K/uL (0.0-0.2); BASO % 1.3 % (0.0-2.0); EOS % 0.7 % (0.0-4.0); HEMOGLOBIN 13.2 g/dL (12.0-18.0); LYMPH % 27.7 % (20.0-40.0); MEAN CELL VOLUME 84.2 fL (80.0-94.0); MEAN CORPUSCULAR HEMOGLOBIN 28.2 pg (27.0-31.0); MEAN CORPUSCULAR HGB CONC 33.5 g/dL (33.0-37.0); MEAN PLATELET VOLUME 9.1 fL (7.2-11.7); MONO # 0.4 K/uL (0.0-0.8); MONO % 5.3 % (0.0-10.0); NEUT # 4.7 K/uL (1.8-7.0); NRBC % 0.2 % (0.0-2.0); RBC 4.7 Mil/uL (4.40-5.90); RED CELL DISTRIBUTION WIDTH 14.2 % (11.5-14.5); WHITE BLOOD COUNT 7.2 K/uL (4.8-10.8)
--- NOTE | 2018-05-10 21:50 | C.PDOC ---
History Of Present Illness Patient presents to ED with suicidal ideation. He admits to having the urge to jump infront of a train. Denies any homicidal ideation and has no other medical complaints. Time Seen by Provider: 05/10/18 21:36 Chief Complaint (Nursing): Psychiatric Evaluation History Per: Patient History/Exam Limitations: no limitations Onset/Duration Of Symptoms: Days Current Symptoms Are (Timing): Still Present Modifying Factor(s): None Severity: None Pain Scale Rating Of: 0 Associated Symptoms: Suicidal Thoughts, Suicidal Plan Recent travel outside of the [place]: No Past Medical History Reviewed: Historical Data, Nursing Documentation, Vital Signs Vital Signs: Last Vital Signs Temp 98.5 F 05/10/18 20:46 Pulse 102 H 05/10/18 20:46 Resp 16 05/10/18 20:46 BP 147/102 H 05/10/18 20:46 Pulse Ox 97 05/10/18 22:10 - Medical History PMH: Anxiety, Asthma (takes ventolin), Bipolar Disorder, Cardia Arrhythmia ( tachycardia), Depression, HTN (pt unsure of name of medication), Hyperlipidemia , Schizophrenia Denies: Arthritis, COPD, Diabetes, Hepatitis, HIV, Chronic Kidney Disease, Seizures, Sexually Transmitted Disease Surgical History: No Surg Hx - [facility] Procedures DETOXIFICATION SERVICES FOR SUBSTANCE ABUSE TREATMENT (02/05/18) GROUP HOME CARE ATTENDANT FOR SUBSTANCE ABUSE TREATMENT, PSYCHOEDUCATION (02/05/18) GROUP HOME CARE ATTENDANT FOR SUBSTANCE ABUSE, COGNITIVE BEHAVIORAL (02/05/18) GROUP PSYCHOTHERAPY (04/03/18) INDIV PSYCHOTHERAPY FOR SUBSTANCE ABUSE TREATMENT, SUPPORT (02/05/18) INDIV PSYCHOTHERAPY FOR SUBSTANCE ABUSE, COGNITIV BEHAVIORAL (02/05/18) INDIV PSYCHOTHERAPY FOR SUBSTANCE ABUSE, PSYCHOEDUCATION (02/05/18) INDIVIDUAL PSYCHOTHERAPY, COGNITIVE-BEHAVIORAL (02/05/18) INDIVIDUAL PSYCHOTHERAPY, SUPPORTIVE (02/05/18) MEDICATION MANAGEMENT (11/07/17) MEDS MGMT FOR SUBSTANCE ABUSE TREATMENT, METHADONE MAINT (11/07/17) Family History: States: No Known Family Hx - Social History Hx Alcohol Use: No Hx Substance Use: Yes (methadone) - Immunization History Hx Tetanus Toxoid Vaccination: No Hx Influenza Vaccination: No Hx Pneumococcal Vaccination: No Review Of Systems Constitutional: Negative for: Weakness Cardiovascular: Negative for: Chest Pain Respiratory: Negative for: Shortness of Breath, Wheezing Gastrointestinal: Negative for: Nausea, Vomiting Neurological: Negative for: Weakness, Numbness Psych: Positive for: Suicidal ideation Physical Exam - Physical Exam Appears: Non-toxic Skin: Warm, Dry Head: Normacephalic Eye(s): bilateral: Normal Inspection Oral Mucosa: Moist Neck: Supple Chest: Symmetrical Cardiovascular: Rhythm Regular Respiratory: No Rales, No Rhonchi, No Wheezing Gastrointestinal/Abdominal: Soft, No Tenderness, No Distention Back: Normal Inspection Extremity: Normal ROM Neurological/Psych: Oriented x3 Gait: Steady ED Course And Treatment - Laboratory Results Result Diagrams: 05/10/18 21:35 05/10/18 21:35 O2 Sat by Pulse Oximetry: 97 (RA) Pulse Ox Interpretation: Normal Progress Note: Labs and urinalysis ordered. Disposition Discussed With : Jaden Dukes Comment: accepted the pt on his service and took over the care at 1 AM Doctor Will See Patient In The: Hospital Counseled Patient/Family Regarding: Studies Performed, Diagnosis - Disposition Disposition: HOSPITALIZED Disposition Time: 21:38 Condition: FAIR Forms: [employer] (Syrian) - POA Present On Arrival: Poor Glycemic Control - Clinical Impression Clinical Impression: Schizoaffective disorder - Scribe Statement The provider has reviewed the documentation as recorded by the Lakisha Melendez Carlos Manuel Provider Attestation: All medical record entries made by the Lakisha were at my direction and personally dictated by me. I have reviewed the chart and agree that the record accurately reflects my personal performance of the history, physical exam, medical decision making, and the department course for this patient. I have also personally directed, reviewed, and agree with the discharge instructions and disposition. Decision To Admit - Pt Status Changed To: Hospital Disposition Of: Inpatient - Admit Certification Admit to Inpatient:: After my assessment, the patient will require hospitalization for at least two midnights. This is because of the severity of symptoms shown, intensity of services needed, and/or the medical risk in this patient being treated as an outpatient. - InPatient: Physician Admission Certification: I certify that this patient requires 2 or more midnights of care for the following reason:: After my assessment, the patient will require hospitalization for at least two midnights. This is because of the severity of symptoms shown, intensity of services needed, and/or the medical risk in this patient being treated as an outpatient. - . Bed Request Type: Psychiatry Admitting Physician: Jaden Dukes Patient Diagnosis: Schizoaffective disorder
[2018-05-10 21:52] LABS: ALB/GLOB RATIO 1.4 (1.0-2.1); ALBUMIN 4.4 g/dL (3.5-5.0); ALT/SGPT 21 U/L (21-72); AST/SGOT 21 U/L (17-59); BLOOD UREA NITROGEN 12 mg/dL (9-20); CALCIUM 9.6 mg/dl (8.6-10.4); GFR AFRICAN-AMERICAN > 60; GFR NON-AFRICAN AMERICAN > 60
[2018-05-11 00:20] LABS: BARBITURATES, UR NEGATIVE (NEGATIVE); OPIATES, UR NEGATIVE (NEGATIVE); PHENCYCLIDINE, UR NEGATIVE (NEGATIVE)
[2018-05-11 00:37] LABS: URINE BILIRUBIN NEGATIVE (NEGATIVE); URINE BLOOD NEGATIVE (NEGATIVE); URINE CLARITY Clear (Clear); URINE COLOR Yellow (YELLOW); URINE GLUCOSE (UA) NORMAL (Normal); URINE LEUKOCYTE ESTERASE 1+ Leu/uL (Negative); URINE PROTEIN NEGATIVE (NEGATIVE); URINE UROBILINOGEN NORMAL mg/dL (0.2-1.0)
[2018-05-11 01:02] LABS: BENZODIAZEPINES, UR POSITIVE (NEGATIVE)
--- NOTE | 2018-05-11 02:00 | PCM.BM ---
Treatment assets and liabiliti Patient Assests: cooperative, self-reliant, ADL independent, physically healthy , cognitively intact Patient Liabilities: substance abuse - Milieu Protocol Maintain good personal hygiene: daily Encourage regular showers, daily Remind patient to perform daily oral care, daily Assist patient to perform ADL's Conduct patient checks and document Observation sheet: Q15 minutes Maintain personal safety: every shift Educate patient to report safety concerns to staff, every shift Monitor environment for contraband/sharps Medication safety: Monitor for expected outcome, potential side effects: every shift, Assess barriers to learning: every shift, Assess readiness for medication education: every shift
--- NOTE | 2018-05-11 02:03 | PCM.BM ---
<Tyra Cook - Last Filed: 05/11/18 02:02> Treatment Plan Problems - Problems identified on initial assessmt Suicidal ideation Date Initiated: 05/11/18 Time Initiated: 02:30 Assessment reference: NA Status: Active Treatment assets and liabiliti Patient Assests: cooperative, self-reliant, ADL independent, physically healthy , cognitively intact - Milieu Protocol Maintain good personal hygiene: daily Encourage regular showers, daily Remind patient to perform daily oral care, daily Assist patient to perform ADL's Maintain personal safety: every shift Educate patient to report safety concerns to staff, every shift Monitor environment for contraband/sharps Medication safety: Monitor for expected outcome, potential side effects: every shift, Assess barriers to learning: every shift, Assess readiness for medication education: every shift <Melissa Johansen - Last Filed: 05/12/18 11:43> Family Contact Family involvement: Famliy/SO not involved - Goals for Treatment Patient goals for treatment: "I want to go to rehab." Discharge/Continuing Care - Education Needs Education Needs: Patient Medication, Patient Coping Skills, Patient Placement options, Patient Community resources - Discharge Discharge Criteria: Tolerates medication w/o severe side effects, Reduction of target symptoms Discharge to:: Substance Abuse Rehab - Treatment Team Participation Discussed with Family/SO: No Was Patient/Family/SO present at Treatment Team Meeting: Yes <Vinayak Judd - Last Filed: 05/18/18 10:50> - Diagnosis (1) Schizoaffective disorder Status: Chronic Interventions: 05/18/18 10:49 * Assess/adjust medications daily and /or as needed * See patient on an individual basis 7x/week to assess status of hallucinations * Discuss risks, benefits, side effects and alternatives of medications * (2) Alcohol use disorder, severe, dependence Status: Acute Interventions: 05/18/18 10:49 * Assess 7x/week regarding severity of withdrawal * Educate regarding risks, benefits, side effects and alternatives of medications * Use Motivational Interviewing for abstinence * Use CBT for relapse prevention * Medication management for withdrawal symptoms * Encourage medication assisted treatment *
[2018-05-11] MEDS: Methadone 40 mg Tab PO SCH (11:20)
--- NOTE | 2018-05-11 13:09 | PCM.PSYCH ---
Initial Psychiatric Evaluation - Initial Psychiatric Evaluation Type of Admission: Voluntary Legal Status: Capacity Chief Complaint (in patient's own words): "I am depressed and suicidal." History of Present Illness and Precipitating Events: Patient is a 48 year old male who presented to the ED with the chief complaint of suicidality and depression. Patient spent all morning pacing the floor mumbling to himself. He is examined and evaluated while walking as he says it calms him down and he doesn't want to sit in one place. Patient states that he is depressed but the feeling is "hard to describe." He is anxious but not sure about what and says that his mind is racing with all of these different thoughts. His thinking and speech is disorganized and he is moving his lips as if he is responding to internal stimuli. Patient states that he has visual hallucinations and hears voices which are telling him to hurt himself. he has h/o multiple in patient psychiatric hospitalizations. He was recently discharged from [facility] almost 2 months ago. As per him, he stopped taking the meds, soon after the discharge last time from the hospital. Patient has been homeless for the last few months and says that he has a lot of siblings but does not keep in touch with them. He drinks 12 cans of malt liquor 12 oz per day and has been smoking 0.5 pack of cigarettes per day since he was 15 years old. Patient takes 2 x 1 mg Xanax daily which he buys off the street to help him with his anxiety. He denies any weed or drug use but was + for methadone. He has no appetite and has trouble sleeping. PMH: DM, HTN Current Medications: Active Medications Generic Name Dose Route Start Last Admin Trade Name Freq PRN Reason Stop Dose Admin Haloperidol 5 mg 05/11/18 08:59 Haldol PO Q4H PRN Agitation Hydroxyzine HCl 50 mg 05/11/18 08:59 05/11/18 10:59 Atarax PO 50 mg Q6H PRN Administration Anxiety Methadone HCl 80 mg 05/11/18 11:15 05/11/18 11:20 Methadose PO 80 mg DAILY MIREYA Administration Methadone HCl 10 mg 05/11/18 11:15 05/11/18 11:20 Methadone PO 10 mg DAILY MIREYA Administration Pneumococcal Polyvalent Vaccine 0.5 ml 05/13/18 10:00 Pneumovax 23 Vaccine IM 05/13/18 10:01 .ONCE ONE Trazodone HCl 100 mg 05/11/18 02:46 05/11/18 02:50 Desyrel PO 100 mg HS MIREYA Administration Past Psychiatric History - Past Psychiatric History Previous Treatment History: Inpatient Pertinent Medical Hx (Current Medical&Sleep Prob, Allergies): Allergies Allergy/AdvReac Type Severity Reaction Status Date / Time No Known Allergies Allergy Verified 05/10/18 20:48 No Known Home Med 05/10/18 Review of Systems - Review of Systems All systems: reviewed and no additional remarkable complaints except - Psychiatric Psychiatric: As Per HPI, Abnormal Sleep Pattern, Anhedonia, Anxiety, Auditory Hallucinations, Behavioral Changes, Change in Appetite, Depression, Difficulty Concentrating, Hallucinations, Hopelessness, Paranoia, Suicidal Ideation, Visual Hallucinations Mental Status Examination - Personal Presentation Personal Presentation: Looks stated age - Affect Affect: Flat, Depressed - Motor Activity Motor Activity: Psychomotor Agitation - Reliability in Providing Information Reliability in Providing Information: Poor, due to alteration in thoughts, Poor , due to altered mood - Speech Speech: Disorganized - Mood Mood: Depressed, Anxious - Formal Thought Process Formal Thought Process: Hallucinations, Delusions, Paranoia, Loosening of associations, Flight of ideas - Hallucinations/Delusions Hallucinations: Visual, Auditory Delusions: Persecution - Obsessions/Compulsions Obsessions: No Compulsions: No - Cognitive Functions Orientation: Person, Place, Situation, Time Sensorium: Alert Attention/Concentration: Attentive Abstract Thinking: [place] Estimate of Intelligence: Below average Judgement: Imparied, as evidence by: Poor judgement, Imparied, as evidence by: Lack of insight into illness - Risk Risk: Suicidal, Withdrawal, Diminished functioning - Limitations Limitations: Living alone DSM 5 DX - DSM 5 DSM 5 Diagnosis: Schizoaffective disorder bipolar type Opioid use disorder - severe, in remission on maintenance Alcohol use disorder -severe Alcohol withdrawal Sedative hypnotic use disorder - severe - Recommended/Plan of Treatment Treatment Recommendations and Plan of Treatment: Schizoaffective disorder bipolar type -CBT -Psychoeducation -Supportive therapy, group therapy -Trazodone 100 mg by mouth daily at bedtime -Depakote DR 250 mg PO BID -Olanzapine 5 mg pO BID -Neurontin 100 mg PO TID Alcohol use disorder severe Alcohol withdrawal Sedative hypnotic use disorder - severe -CBT -Psychoeducation -Supportive therapy, individual therapy -Start librium prn -MVI/Thiamine/Folic Acid Opioid use disorder - severe, in remission on maintenance -CBT -Psychoeducation -Supportive therapy, individual therapy -Use [place] for abstinence -Methadone 90 mg PO Daily - Smoking Cessation Smoking Cessation Initiated: No
[2018-05-11] MEDS: Divalproex 250 mg DR Tab PO SCH (19:52)
[2018-05-12] MEDS: Divalproex 250 mg DR Tab PO SCH ×2 (10:18→17:07)
[2018-05-12] MEDS: Methadone 40 mg Tab PO SCH (10:19)
--- NOTE | 2018-05-12 23:50 | PCM.PYCHPN ---
Psychiatric Progress Note - Psychiatric Progress Note Patient Chief Complaint: "I am depressed and suicidal." Mental Status Examination - Cognitive Function Orientation: Person, Place, Situation, Time - Mood Mood: Depressed, Anxious - Affect Affect: Flat, Depressed - Formal Thought Process Formal Thought Process: Hallucinations, Delusions, Paranoia, Loosening of associations, Flight of ideas - Homicidal Ideation Homicidal Ideation: No Goal/Treatment Plan - Goal/Treatment Plan Progress Toward Problem(s) and Goals/Treatment Plan: Schizoaffective disorder bipolar type -CBT -Psychoeducation -Supportive therapy, group therapy -Trazodone 100 mg by mouth daily at bedtime -Depakote DR 250 mg PO BID -Olanzapine 5 mg pO BID -Neurontin 100 mg PO TID Alcohol use disorder severe Alcohol withdrawal Sedative hypnotic use disorder - severe -CBT -Psychoeducation -Supportive therapy, individual therapy -Start librium prn -MVI/Thiamine/Folic Acid Opioid use disorder - severe, in remission on maintenance -CBT -Psychoeducation -Supportive therapy, individual therapy -Use [place] for abstinence -Methadone 90 mg PO Daily
[2018-05-13] MEDS: Divalproex 250 mg DR Tab PO SCH ×2 (09:15→17:14)
[2018-05-13] MEDS: Methadone 40 mg Tab PO SCH (09:15)
[2018-05-13] MEDS ORDERED: Pneumococcal 23-Valent Vaccine IM ONE (10:00)
--- NOTE | 2018-05-13 14:42 | PCM.PYCHPN ---
Psychiatric Progress Note - Psychiatric Progress Note Patient seen today, length of contact: 15 minutes Patient Chief Complaint: "I am depressed and suicidal." Problems Identified/Issues Discussed: Patient was seen and evaluated today and is talkative and alert. He continues to pace the hallway to calm himself down and says that he avoids crowded, loud areas because it makes him feel very overwhelmed. He has stopped having A/H but continues to have V/H and says that he sees " people everywhere." He was upset regarding an incident where the nurse called security on him because of his comments regarding people. Patient reports that the medications given are not working. He is anxious and describes this as his heart is racing. He slept well but continues to have decreased appetite. Medication Change: No Medical Record Reviewed: Yes Mental Status Examination - Cognitive Function Orientation: Person, Place, Situation, Time Memory: Intact Attention: Poor Concentration: Poor Association: Loose Fund of Knowledge: Poor - Mood Mood: Depressed, Anxious - Affect Affect: Flat, Depressed - Speech Speech: Soft - Language Language: Word Retrieval - Formal Thought Process Formal Thought Process: Hallucinations, Delusions, Paranoia, Loosening of associations, Flight of ideas - Suicidal Ideation Suicidal Ideation: Yes - Homicidal Ideation Homicidal Ideation: No Goal/Treatment Plan - Goal/Treatment Plan Progress Toward Problem(s) and Goals/Treatment Plan: Schizoaffective disorder bipolar type -CBT -Psychoeducation -Supportive therapy, group therapy -Trazodone 100 mg by mouth daily at bedtime -Depakote DR 250 mg PO BID -Olanzapine 5 mg pO BID -Neurontin 100 mg PO TID Alcohol use disorder severe Alcohol withdrawal Sedative hypnotic use disorder - severe -CBT -Psychoeducation -Supportive therapy, individual therapy -Start librium prn -MVI/Thiamine/Folic Acid Opioid use disorder - severe, in remission on maintenance -CBT -Psychoeducation -Supportive therapy, individual therapy -Use [place] for abstinence -Methadone 90 mg PO Daily
[2018-05-14] MEDS: Divalproex 500 mg DR Tab PO SCH ×3 (10:15→17:22)
[2018-05-14] MEDS: Methadone 40 mg Tab PO SCH (10:22)
--- NOTE | 2018-05-14 13:37 | PCM.PYCHPN ---
Psychiatric Progress Note - Psychiatric Progress Note Patient seen today, length of contact: 15 minutes Patient Chief Complaint: "I am depressed and suicidal." Problems Identified/Issues Discussed: Pt was seen and evaluated today, chart reviewed and discussed with the nurse. Pt reports both A/H and V/H and depressed mood with irritability and agitation. Pt continues to pace the halls but is responsive to evaluation. He originally denied medications today but eventually agreed to remain compliant. As per the staff, he has no progressed since yesterday and wants to leave. Pt needs more time to stabilize. Medication Change: No Medical Record Reviewed: Yes Mental Status Examination - Cognitive Function Orientation: Person, Place, Situation, Time Memory: Intact Attention: Poor Concentration: Poor Association: Loose Fund of Knowledge: Poor - Mood Mood: Depressed, Anxious - Affect Affect: Flat, Depressed - Speech Speech: Soft - Language Language: Word Retrieval - Formal Thought Process Formal Thought Process: Hallucinations, Delusions, Paranoia, Loosening of associations, Flight of ideas - Suicidal Ideation Suicidal Ideation: Yes - Homicidal Ideation Homicidal Ideation: No Goal/Treatment Plan - Goal/Treatment Plan Progress Toward Problem(s) and Goals/Treatment Plan: Schizoaffective disorder bipolar type -CBT -Psychoeducation -Supportive therapy, group therapy -Trazodone 100 mg by mouth daily at bedtime -Depakote DR 250 mg PO BID -Olanzapine 5 mg pO BID -Neurontin 100 mg PO TID Alcohol use disorder severe Alcohol withdrawal Sedative hypnotic use disorder - severe -CBT -Psychoeducation -Supportive therapy, individual therapy -Start librium prn -MVI/Thiamine/Folic Acid Opioid use disorder - severe, in remission on maintenance -CBT -Psychoeducation -Supportive therapy, individual therapy -Use DE for abstinence -Methadone 90 mg PO Daily
[2018-05-15 06:35] VITALS: RESP 20
[2018-05-15] MEDS: Divalproex 500 mg DR Tab PO SCH ×2 (10:13→17:14)
[2018-05-15] MEDS: Methadone 40 mg Tab PO SCH (10:14)
[2018-05-16] MEDS: Divalproex 500 mg DR Tab PO SCH ×2 (09:24→17:07)
[2018-05-16] MEDS: Methadone 40 mg Tab PO SCH (11:30)
[2018-05-17 06:43] VITALS: O2SAT 95
[2018-05-17] MEDS: Methadone 40 mg Tab PO SCH (10:13)
[2018-05-17] MEDS: Divalproex 500 mg DR Tab PO SCH ×2 (10:14→17:16)
[2018-05-18 07:01] VITALS: BP 104/68; PULSE 78; TEMP 98.6
[2018-05-18] MEDS: Methadone 40 mg Tab PO SCH (09:53)
[2018-05-18] MEDS: Divalproex 500 mg DR Tab PO SCH (09:54)
--- NOTE | 2018-05-18 11:05 | PCM.PYCHDC ---
Mental Status Examination - Mental Status Examination Orientation: Person, Place, Situation, Time Memory: Intact Mood: Neutral Affect: Constricted Speech: Soft Attention: WNL Concentration: WNL Association: WNL Fund of Knowledge: WNL Formal Thought Process: No Impairment Description of patient's judgement and insight: good, fair Psychotic Thoughts and Behaviors: denies any AVH Suicidal Ideation: No Current Homicidal Ideation?: No Discharge Summary - Discharge Note Reason for Hospitalization: Patient is a 48 year old male who presented to the ED with the chief complaint of suicidality and depression. Patient spent all morning pacing the floor mumbling to himself. He is examined and evaluated while walking as he says it calms him down and he doesn't want to sit in one place. Patient states that he is depressed but the feeling is "hard to describe." He is anxious but not sure about what and says that his mind is racing with all of these different thoughts. His thinking and speech is disorganized and he is moving his lips as if he is responding to internal stimuli. Patient states that he has visual hallucinations and hears voices which are telling him to hurt himself. he has h/o multiple in patient psychiatric hospitalizations. He was recently discharged from [facility] almost 2 months ago. As per him, he stopped taking the meds, soon after the discharge last time from the hospital. Patient has been homeless for the last few months and says that he has a lot of siblings but does not keep in touch with them. He drinks 12 cans of malt liquor 12 oz per day and has been smoking 0.5 pack of cigarettes per day since he was 15 years old. Patient takes 2 x 1 mg Xanax daily which he buys off the street to help him with his anxiety. He denies any weed or drug use but was + for methadone. He has no appetite and has trouble sleeping. Laboratory Data: Abnormal Lab Results 05/17/18 05/17/18 07:35 16:42 POC Glucose (mg/dL) 204 H 356 H Consultations:: List each consultation separately and include: 1. Reason for request. 2. Findings. 3. Follow-up Summary of Hospital Course include:: 1. Description of specific treatment plan utilized for patients during their course of treatmen. 2. Summarize the time- course for resolution of acute symptoms and/or regressed behaviors. 3. Describe issues identified and worked on during hospitalization. 4. Describe medication utilized. 5. Describe medical problems identified and treated. 6. Reassessment of suicide risk Summary of Hospital Course: Patient is a 48 year old male who presented to the ED with the chief complaint of suicidality and depression. Patient spent all morning pacing the floor mumbling to himself. He is examined and evaluated while walking as he says it calms him down and he doesn't want to sit in one place. Patient states that he is depressed but the feeling is "hard to describe." He is anxious but not sure about what and says that his mind is racing with all of these different thoughts. His thinking and speech is disorganized and he is moving his lips as if he is responding to internal stimuli. Patient states that he has visual hallucinations and hears voices which are telling him to hurt himself. he has h/o multiple in patient psychiatric hospitalizations. He was recently discharged from [facility] almost 2 months ago. As per him, he stopped taking the meds, soon after the discharge last time from the hospital. Patient has been homeless for the last few months and says that he has a lot of siblings but does not keep in touch with them. He drinks 12 cans of malt liquor 12 oz per day and has been smoking 0.5 pack of cigarettes per day since he was 15 years old. Patient takes 2 x 1 mg Xanax daily which he buys off the street to help him with his anxiety. He denies any weed or drug use but was + for methadone. He has no appetite and has trouble sleeping. PMH: DM, HTN - Diagnosis (1) Schizoaffective disorder Current Visit: Yes Status: Chronic Priority: High (2) Alcohol use disorder, severe, dependence Current Visit: No Status: Acute - Final Diagnosis (DSM 5) Condition upon Discharge: FAIR DSM 5: Schizoaffective disorder bipolar type Alcohol use disorder severe Alcohol withdrawal Opioid use disorder - severe, in remission on maintenance Disposition: HOME/ ROUTINE Follow-up Treatment Plan: Schizoaffective disorder bipolar type -CBT -Psychoeducation -Supportive therapy, group therapy -Trazodone 100 mg by mouth daily at bedtime -Depakote DR 250 mg PO BID -Olanzapine 5 mg pO BID -Neurontin 100 mg PO TID Alcohol use disorder severe Alcohol withdrawal Sedative hypnotic use disorder - severe -CBT -Psychoeducation -Supportive therapy, individual therapy -Start librium prn -MVI/Thiamine/Folic Acid Opioid use disorder - severe, in remission on maintenance -CBT -Psychoeducation -Supportive therapy, individual therapy -Use MS for abstinence -Methadone 90 mg PO Daily Prescriptions/Medication Reconciliation: Divalproex [Depakote DR] 500 mg PO BID #60 tcp OLANZapine [Zyprexa] 10 mg PO BID #60 tab traZODone [Desyrel] 100 mg PO HS PRN #30 tab PRN Reason: Insomnia - Smoking Cessation Smoking Cessation Medication prescribed: No - Antipsychotic Medications Pt discharged on 2 or more routine antipsychotic medications: No
== END 2018-05-18 11:30 | disposition home or self-care (01) | DRG 430 ==
LOC: C.ER 20:12 → C.5E 05-11 00:59
PROVIDERS: ADMIT Psychiatry & Neurology Psychiatry; ATTEND Psychiatry & Neurology Psychiatry
PROC: GZHZZZZ Group Psychotherapy (ICD-10-PCS; principal; 2018-05-11)
PROC: HZ2ZZZZ Detoxification Services for Substance Abuse Treatment (ICD-10-PCS; 2018-05-11)
PROC: HZ52ZZZ Individual Psychotherapy for Substance Abuse Treatment, Cognitive-Behavioral (ICD-10-PCS; 2018-05-11)
PROC: HZ59ZZZ Individual Psychotherapy for Substance Abuse Treatment, Supportive (ICD-10-PCS; 2018-05-11)
PROC: HZ56ZZZ Individual Psychotherapy for Substance Abuse Treatment, Psychoeducation (ICD-10-PCS; 2018-05-11)
PROC: HZ42ZZZ Group Counseling for Substance Abuse Treatment, Cognitive-Behavioral (ICD-10-PCS; 2018-05-11)
PROC: HZ46ZZZ Group Counseling for Substance Abuse Treatment, Psychoeducation (ICD-10-PCS; 2018-05-11)
PROC: GZ58ZZZ Individual Psychotherapy, Cognitive-Behavioral (ICD-10-PCS; 2018-05-11)
PROC: GZ56ZZZ Individual Psychotherapy, Supportive (ICD-10-PCS; 2018-05-11)
DX: F25.0 Schizoaffective disorder, bipolar type (principal); F10.230 Alcohol dependence with withdrawal, uncomplicated; F13.20 Sedative, hypnotic or anxiolytic dependence, uncomplicated; F11.21 Opioid dependence, in remission; R45.851 Suicidal ideations; E11.9 Type 2 diabetes mellitus without complications; F41.9 Anxiety disorder, unspecified; I10 Essential (primary) hypertension; J45.909 Unspecified asthma, uncomplicated; F17.200 Nicotine dependence, unspecified, uncomplicated; Y90.0 Blood alcohol level of less than 20 mg/100 ml; R45.1 Restlessness and agitation; Z59.0 Homelessness

== ENCOUNTER 2018-06-24 09:01 | Emergency (ER) | payer MEDICAID, OTHER ==
[2018-06-24 09:01] VITALS: BMI 32.1
[2018-06-24 09:56] LABS: BASO % 0.5 % (0.0-2.0); EOS # 0.1 K/uL (0.0-0.7); EOS % 0.5 % (0.0-4.0); HEMOGLOBIN 13.1 g/dL (12.0-18.0); LYMPH # 1.2 K/uL (1.0-4.3); LYMPH % 12.6 % (20.0-40.0); MEAN CELL VOLUME 84.7 fL (80.0-94.0); MEAN CORPUSCULAR HEMOGLOBIN 28.5 pg (27.0-31.0); MEAN CORPUSCULAR HGB CONC 33.7 g/dL (33.0-37.0); MEAN PLATELET VOLUME 8.8 fL (7.2-11.7); MONO # 0.5 K/uL (0.0-0.8); MONO % 4.6 % (0.0-10.0); NEUT # 8.1 K/uL (1.8-7.0); NEUT % 81.8 % (50.0-75.0); NRBC % 0.1 % (0.0-2.0); RBC 4.6 Mil/uL (4.40-5.90); WHITE BLOOD COUNT 9.9 K/uL (4.8-10.8)
[2018-06-24 10:07] LABS: ALB/GLOB RATIO 1.4 (1.0-2.1); ALBUMIN 4.5 g/dL (3.5-5.0); ALT/SGPT 95 U/L (21-72); AST/SGOT 39 U/L (17-59); BLOOD UREA NITROGEN 12 mg/dL (9-20); CALCIUM 9.9 mg/dl (8.6-10.4); GFR NON-AFRICAN AMERICAN > 60
[2018-06-24 10:56] LABS: SQUAMOUS EPITHIAL 2 /hpf (0-5); URINE BILIRUBIN NEGATIVE (NEGATIVE); URINE BLOOD NEGATIVE (NEGATIVE); URINE CLARITY Hazy (Clear); URINE COLOR Yellow (YELLOW); URINE GLUCOSE (UA) NORMAL (Normal); URINE LEUKOCYTE ESTERASE TRACE Leu/uL (Negative); URINE PROTEIN NEGATIVE (NEGATIVE); URINE UROBILINOGEN NORMAL mg/dL (0.2-1.0)
[2018-06-24 11:05] LABS: BARBITURATES, UR NEGATIVE (NEGATIVE); OPIATES, UR NEGATIVE (NEGATIVE); PHENCYCLIDINE, UR NEGATIVE (NEGATIVE)
--- NOTE | 2018-06-24 11:22 | C.PDOC ---
History Of Present Illness 48 y/o male presents to ED with c/o feeling depressed with suicidal ideation. Patient states he is hearing voices telling him to hurt himself by jumping in front of a train. Patient denies HI, chest pain, sob, nausea, vomiting or other physical complaints. Time Seen by Provider: 06/24/18 09:09 Chief Complaint (Nursing): Psychiatric Evaluation History Per: Patient History/Exam Limitations: no limitations Onset/Duration Of Symptoms: Days Current Symptoms Are (Timing): Still Present Suicide/Self Injury Attempted (Context): None Associated Symptoms: Depression, Suicidal Thoughts, Suicidal Plan Involuntary Hold By: Emergency Physician Past Medical History Reviewed: Historical Data, Nursing Documentation, Vital Signs Vital Signs: Last Vital Signs Temp 98.6 F 06/24/18 14:15 Pulse 101 H 06/24/18 14:15 Resp 20 06/24/18 14:15 BP 113/76 06/24/18 14:15 Pulse Ox 97 06/24/18 14:15 - Medical History PMH: Anxiety, Asthma, Bipolar Disorder, Cardia Arrhythmia (tachycardia), Depression, Diabetes, HTN, Hyperlipidemia, Schizophrenia Surgical History: No Surg Hx - [facility] Procedures DETOXIFICATION SERVICES FOR SUBSTANCE ABUSE TREATMENT (05/11/18) GROUP CARRIAGE OPERATOR FOR SUBSTANCE ABUSE TREATMENT, PSYCHOEDUCATION (05/11/18) GROUP CARRIAGE OPERATOR FOR SUBSTANCE ABUSE, COGNITIVE BEHAVIORAL (05/11/18) GROUP PSYCHOTHERAPY (05/11/18) INDIV PSYCHOTHERAPY FOR SUBSTANCE ABUSE TREATMENT, SUPPORT (05/11/18) INDIV PSYCHOTHERAPY FOR SUBSTANCE ABUSE, COGNITIV BEHAVIORAL (05/11/18) INDIV PSYCHOTHERAPY FOR SUBSTANCE ABUSE, PSYCHOEDUCATION (05/11/18) INDIVIDUAL PSYCHOTHERAPY, COGNITIVE-BEHAVIORAL (05/11/18) INDIVIDUAL PSYCHOTHERAPY, SUPPORTIVE (05/11/18) MEDICATION MANAGEMENT (11/07/17) MEDS MGMT FOR SUBSTANCE ABUSE TREATMENT, METHADONE MAINT (11/07/17) Family History: States: No Known Family Hx - Social History Hx Alcohol Use: Yes Hx Substance Use: No (last use 2 years ago) - Immunization History Hx Tetanus Toxoid Vaccination: No Hx Influenza Vaccination: No Hx Pneumococcal Vaccination: No Review Of Systems Constitutional: Negative for: Fever Cardiovascular: Negative for: Chest Pain Respiratory: Negative for: Shortness of Breath Gastrointestinal: Negative for: Nausea, Vomiting, Abdominal Pain Neurological: Negative for: Headache Psych: Positive for: Depression, Suicidal ideation. Negative for: Anxiety, Withdrawal Physical Exam - Physical Exam Appears: Well, Non-toxic, No Acute Distress, Other (Bizarre affect) Skin: Warm, Dry, No Rash Head: Normacephalic Eye(s): bilateral: Normal Inspection Oral Mucosa: Moist Neck: Supple Cardiovascular: Rhythm Regular Respiratory: Normal Breath Sounds, No Rales, No Rhonchi, No Wheezing Gastrointestinal/Abdominal: Normal Exam, Bowel Sounds, Soft, No Tenderness Neurological/Psych: Oriented x3 ED Course And Treatment - Laboratory Results Result Diagrams: 06/24/18 09:50 06/24/18 09:50 O2 Sat by Pulse Oximetry: 97 (RA) Pulse Ox Interpretation: Normal Progress Note: Blood work, UA, UDS ordered and reviewed. Reevaluation Time: 14:15 Reassessment Condition: Improved (Patient has been evaluated by crisis counselor , who discussed patient with pyschiatrist electronic security technician Dr. Dukes. Patient has been cleared for discharge by Dr. Dukes, who suspects patient is malingering ( history of monthly presentation to ERs for admission). Patient instructed to follow up as instructed, and he understands he should return to ED if he has worsening or concerning symptoms.) Disposition Counseled Patient/Family Regarding: Studies Performed, Diagnosis, Need For Followup - Disposition Referrals: [facility] [Outside] Disposition: HOME/ ROUTINE Disposition Time: 14:15 Condition: STABLE Instructions: Depression Forms: General Discharge Instructions, [facility] (German) Print Language: TAMAZIGHT - Clinical Impression Clinical Impression: Depression, Malingering - Scribe Statement The provider has reviewed the documentation as recorded by the Lakisha Villarreal All medical record entries made by the Lakisha were at my direction and personally dictated by me. I have reviewed the chart and agree that the record accurately reflects my personal performance of the history, physical exam, medical decision making, and the department course for this patient. I have also personally directed, reviewed, and agree with the discharge instructions and disposition.
[2018-06-24 11:50] LABS: BENZODIAZEPINES, UR POSITIVE (NEGATIVE)
[2018-06-24 14:15] VITALS: BP 113/76; PULSE 101; RESP 20; TEMP 98.6; O2SAT 97
== END 2018-06-24 15:03 | disposition home or self-care (01) ==
LOC: C.ER 09:01
DX: F32.9 Major depressive disorder, single episode, unspecified (principal); Z76.5 Malingerer [conscious simulation]

== ENCOUNTER 2018-07-02 16:00 | Emergency (ER) | payer MEDICAID ==
[2018-07-02 16:00] VITALS: BMI 32.1
[2018-07-02 16:11] VITALS: BP 112/76; PULSE 97; RESP 18; TEMP 99.3; O2SAT 98
--- NOTE | 2018-07-02 16:19 | C.PDOC ---
History Of Present Illness 48 y/o male, homeless, is brought to ED via EMS for evaluation. Pt states he does not want to stay in the hospital. He denies suicidal ideation, homicidal ideation, or any active physical complaints at this time. Pt has had extensive outpatient psych followup. Pt is non compliant with his meds. Time Seen by Provider: 07/02/18 16:11 Chief Complaint (Nursing): Psychiatric Evaluation History Per: Patient History/Exam Limitations: no limitations Past Medical History Reviewed: Historical Data, Nursing Documentation, Vital Signs Vital Signs: Last Vital Signs Temp 99.3 F 07/02/18 16:07 Pulse 97 H 07/02/18 16:07 Resp 18 07/02/18 16:07 BP 112/76 07/02/18 16:07 Pulse Ox 98 07/02/18 16:19 - Medical History PMH: Anxiety, Asthma, Bipolar Disorder, Cardia Arrhythmia, Depression, Diabetes , HTN, Hyperlipidemia, Schizophrenia Denies: Arthritis, COPD, Hepatitis, HIV, Chronic Kidney Disease, Seizures, Sexually Transmitted Disease - [facility] Procedures DETOXIFICATION SERVICES FOR SUBSTANCE ABUSE TREATMENT (05/11/18) GROUP FIBER OPTIC TECHNICIAN FOR SUBSTANCE ABUSE TREATMENT, PSYCHOEDUCATION (05/11/18) GROUP FIBER OPTIC TECHNICIAN FOR SUBSTANCE ABUSE, COGNITIVE BEHAVIORAL (05/11/18) GROUP PSYCHOTHERAPY (05/11/18) INDIV PSYCHOTHERAPY FOR SUBSTANCE ABUSE TREATMENT, SUPPORT (05/11/18) INDIV PSYCHOTHERAPY FOR SUBSTANCE ABUSE, COGNITIV BEHAVIORAL (05/11/18) INDIV PSYCHOTHERAPY FOR SUBSTANCE ABUSE, PSYCHOEDUCATION (05/11/18) INDIVIDUAL PSYCHOTHERAPY, COGNITIVE-BEHAVIORAL (05/11/18) INDIVIDUAL PSYCHOTHERAPY, SUPPORTIVE (05/11/18) MEDICATION MANAGEMENT (11/07/17) MEDS MGMT FOR SUBSTANCE ABUSE TREATMENT, METHADONE MAINT (11/07/17) Family History: States: Unknown Family Hx - Social History Hx Alcohol Use: Yes Hx Substance Use: No - Immunization History Hx Tetanus Toxoid Vaccination: No Hx Influenza Vaccination: No Hx Pneumococcal Vaccination: No Review Of Systems Except As Marked, All Systems Reviewed And Found Negative. Constitutional: Negative for: Fever, Chills Cardiovascular: Negative for: Chest Pain, Palpitations Respiratory: Negative for: Cough, Shortness of Breath Gastrointestinal: Negative for: Nausea, Vomiting, Abdominal Pain Neurological: Negative for: Headache, Dizziness Psych: Negative for: Suicidal ideation Physical Exam - Physical Exam Appears: Non-toxic, No Acute Distress, Other (black obese male) Skin: Normal Color, Warm, Dry Head: Atraumatic, Normacephalic Eye(s): bilateral: Normal Inspection Oral Mucosa: Moist Neck: Supple Cardiovascular: Rhythm Regular Respiratory: Normal Breath Sounds, No Rales, No Rhonchi, No Wheezing Gastrointestinal/Abdominal: Soft, No Tenderness Extremity: Normal ROM Neurological/Psych: Oriented x3, Normal Speech, Other (calm, cooperative) ED Course And Treatment O2 Sat by Pulse Oximetry: 98 Pulse Ox Interpretation: Normal Medical Decision Making Medical Decision Making: homeless, does not want to stay in hospital has good outpatient f/u though poor med compliance no SI/HI during ED visit. Disposition Doctor Will See Patient In The: Office Counseled Patient/Family Regarding: Studies Performed, Diagnosis - Disposition Referrals: [facility] [Outside] [facility] [Outside] [facility] [Outside] Disposition: HOME/ ROUTINE Disposition Time: 16:18 Condition: GOOD Additional Instructions: continue outpatient follow-up as discussed with Crisis Evaluators in the ED avoid substance abuse Seek nightly alf placement as needed Instructions: Schizoaffective Disorder, Drug Abuse and Drug Addiction (DC) Forms: [facility] (Bhutanese) - Clinical Impression Clinical Impression: Schizoaffective disorder, Substance abuse - Scribe Statement The provider has reviewed the documentation as recorded by the Scribe KP All medical record entries made by the Scribe were at my direction and personally dictated by me. I have reviewed the chart and agree that the record accurately reflects my personal performance of the history, physical exam, medical decision making, and the department course for this patient. I have also personally directed, reviewed, and agree with the discharge instructions and disposition.
== END 2018-07-02 16:25 | disposition home or self-care (01) ==
LOC: C.ER 16:00
DX: F25.9 Schizoaffective disorder, unspecified (principal); F19.10 Other psychoactive substance abuse, uncomplicated